=== PATIENT | male | born 1950 | race Caucasian/White ===

== ENCOUNTER 2018-04-25 12:39 | Inpatient (IN) | payer OTHER ==
[2018-04-25] MEDS ORDERED: ONDANSETRON 4 MG/2 ML VIAL ONE (13:25)
[2018-04-25] MEDS ORDERED: PANTOPRAZOLE 40 MG INJ ONE (13:26)
[2018-04-25] MEDS ORDERED: NA CHLORIDE 0.9% 1,000 ML ONE (13:26)
--- NOTE | 2018-04-25 13:35 | EDPHYS ---
Physician Documentation [facility] Name: Jacob Dick Age: 67 yrs Sex: Male : 1950 Arrival Date: 04/25/2018 Time: 12:44 Bed 4 Private MD: ED Physician Darrion Joseph HPI: 04/25 13:22 This 67 yrs old Male presents to ER via Ambulatory with complaints of jenny Nausea/Vomiting. 13:22 The patient presents to the emergency department with nausea, vomiting. Onset: The jenny symptoms/episode began/occurred 3 day(s) ago. Possible causes: unknown. The symptoms are aggravated by nothing. The symptoms are alleviated by nothing. remaining still. Associated signs and symptoms: Pertinent positives: nausea, vomiting. Severity of symptoms: At their worst the symptoms were mild in the emergency department the symptoms have resolved. The patient has not experienced similar symptoms in the past. Historical: - Allergies: 12:48 Codeine; hj 12:48 Hydrocodone-Acetaminophen; hj - Home Meds: 12:48 ibuprofen 100 mg/5 mL Oral susp 20 mL every 4 hours [Active]; furosemide 20 mg Oral tab hj 1 tab 2 times per day [Active]; lisinopril 5 mg Oral tab 1 tab once daily [Active]; citalopram 20 mg tab 1 tab once daily [Active]; metoprolol tartrate 25 mg Oral tab .5 tab 2 times per day [Active]; Cipro 500 mg Oral tab 1 tab every 12 hours [Active]; atorvastatin 80 mg oral tab 1 tab once daily [Active]; allopurinol 300 mg Oral tab 1 tab once daily [Active]; isosorbide mononitrate 60 mg Oral Tb24 1 tab once daily [Active]; Plavix 75 mg Oral tab 1 tab once daily [Active]; - PMHx: 12:48 Hypertension; Hyperlipidemia; Gout; hj - PSHx: 12:48 foot; hj - Immunization history:: Adult Immunizations up to date. - Social history:: Smoking status: Patient/guardian denies using tobacco, Patient/guardian denies using alcohol. - Ebola Screening: : Patient negative for fever greater than or equal to 101.5 degrees Fahrenheit, and additional compatible Ebola Virus Disease symptoms Patient denies exposure to infectious person Patient denies travel to an Ebola-affected area in the 21 days before illness onset. - Family history:: not pertinent. ROS: 13:22 Constitutional: Negative for fever, chills, and weight loss, Eyes: Negative for injury, jenny pain, redness, and discharge, ENT: Negative for injury, pain, and discharge, Neck: Negative for injury, pain, and swelling, Cardiovascular: Negative for chest pain, palpitations, and edema, Back: Negative for injury and pain, : Negative for injury, bleeding, discharge, and swelling, MS/Extremity: Negative for injury and deformity, Skin: Negative for injury, rash, and discoloration, Neuro: Negative for headache, weakness, numbness, tingling, and seizure, Psych: Negative for depression, anxiety, suicide ideation, homicidal ideation, and hallucinations, Allergy/Immunology: Negative for hives, rash, and allergies, Endocrine: Negative for neck swelling, polydipsia, polyuria, polyphagia, and marked weight changes, Hematologic/Lymphatic: Negative for swollen nodes, abnormal bleeding, and unusual bruising. 13:22 Respiratory: Positive for cough. 13:22 Abdomen/GI: Positive for nausea, vomiting. Exam: 13:22 Constitutional: This is a well developed, well nourished patient who is awake, alert, jenny and in no acute distress. Head/Face: Normocephalic, atraumatic. Eyes: Pupils equal round and reactive to light, extra-ocular motions intact. Lids and lashes normal. Conjunctiva and sclera are non-icteric and not injected. Cornea within normal limits. Periorbital areas with no swelling, redness, or edema. ENT: Nares patent. No nasal discharge, no septal abnormalities noted. Tympanic membranes are normal and external auditory canals are clear. Oropharynx with no redness, swelling, or masses, exudates, or evidence of obstruction, uvula midline. Mucous membranes moist. Neck: Trachea midline, no thyromegaly or masses palpated, and no cervical lymphadenopathy. Supple, full range of motion without nuchal rigidity, or vertebral point tenderness. No Meningismus. Chest/axilla: Normal chest wall appearance and motion. Nontender with no deformity. No lesions are appreciated. Cardiovascular: Regular rate and rhythm with a normal S1 and S2. No gallops, murmurs, or rubs. Normal PMI, no JVD. No pulse deficits. Respiratory: Lungs have equal breath sounds bilaterally, clear to auscultation and percussion. No rales, rhonchi or wheezes noted. No increased work of breathing, no retractions or nasal flaring. Back: No spinal tenderness. No costovertebral tenderness. Full range of motion. Male : Normal genitalia with no discharge or lesions. Skin: Warm, dry with normal turgor. Normal color with no rashes, no lesions, and no evidence of cellulitis. MS/ Extremity: Pulses equal, no cyanosis. Neurovascular intact. Full, normal range of motion. Psych: Awake, alert, with orientation to person, place and time. Behavior, mood, and affect are within normal limits. 13:22 Abdomen/GI: Inspection: abdomen appears normal, Bowel sounds: normal, Palpation: nontender, in all quadrants, Liver: no appreciated palpable abnormalities, Hernia: not appreciated. Vital Signs: 12:50 BP 163 / 69; Pulse 71; Resp 18; Temp 98.2(O); Pulse Ox 90% on R/A; Weight 65.77 kg; Height 5 ft. 5 in. (165.10 cm); Pain 0/10; 12:50 Pulse Ox 99% on 2 lpm NC; hj 13:50 BP 158 / 70; Pulse 75; Resp 18; Pulse Ox 100% on 2 lpm NC; hj 14:30 BP 196 / 139; Pulse 71; Resp 16; Pulse Ox 99% ; ag 15:30 BP 162 / 70; Pulse 75; Resp 18; Pulse Ox 99% on 2 lpm NC; hj 12:50 Body Mass Index 24.13 (65.77 kg, 165.10 cm) MDM: 12:44 Patient medically screened. [facility] 13:44 Data reviewed: vital signs, nurses notes, lab test result(s), EKG, radiologic studies. [facility] 04/25 13:22 Order name: Basic Metabolic Panel; Complete Time: 14:30 04/25 13:22 Order name: CBC with Diff 04/25 13:22 Order name: Ckmb; Complete Time: 14:30 04/25 13:22 Order name: CPK; Complete Time: 14:30 04/25 13:22 Order name: LFT's; Complete Time: 14:30 04/25 13:22 Order name: Magnesium; Complete Time: 14:30 04/25 13:22 Order name: PT-INR; Complete Time: 14:31 [facility] 04/25 13:22 Order name: Ptt, Activated; Complete Time: 14:31 [facility] 04/25 13:22 Order name: Troponin (emerg Dept Use Only); Complete Time: 14:30 [facility] 04/25 13:22 Order name: Lipase; Complete Time: 14:30 [facility] 04/25 13:22 Order name: Blood Culture Adult (2) [facility] 04/25 13:22 Order name: Urine Culture [facility] 04/25 14:31 Order name: Phosphorus [facility] 04/25 14:31 Order name: BNP [facility] 04/25 13:22 Order name: XRAY Chest (1 view) [facility] 04/25 13:22 Order name: CT Head Brain wo Cont; Complete Time: 14:30 [facility] 04/25 13:43 Order name: Echo with Doppler [facility] 04/25 14:32 Order name: ABG [facility] 04/25 14:53 Order name: Phosphorus; Complete Time: 15:09 [facility] 04/25 14:53 Order name: NT PRO-BNP; Complete Time: 15:09 [facility] 04/25 14:56 Order name: RAD; Complete Time: 15:09 [facility] 04/25 15:01 Order name: ABG Arterial Blood Gas; Complete Time: 15:09 [facility] 04/25 16:41 Order name: Urine Dipstick--Ancillary (enter results) 04/25 16:43 Order name: Urine Dipstick-Ancillary; Complete Time: 16:47 [facility]SD 04/25 13:22 Order name: EKG; Complete Time: 13:23 [facility] 04/25 13:22 Order name: Cardiac monitoring; Complete Time: 13:22 [facility] 04/25 13:22 Order name: EKG - Nurse/Tech; Complete Time: 14:40 [facility] 04/25 13:22 Order name: IV Saline Lock; Complete Time: 13:22 [facility] 04/25 13:22 Order name: Labs collected and sent; Complete Time: 13:22 [facility] 04/25 13:22 Order name: O2 Per Protocol; Complete Time: 13:22 [facility] 04/25 13:22 Order name: O2 Sat Monitoring; Complete Time: 13:22 [facility] Administered Medications: 13:22 Drug: NS 0.9% 1000 ml Route: IV; Rate: 1 bolus; Site: right wrist; hj 14:39 Follow up: IV Status: Completed infusion hj 13:22 Drug: ProTONIX 40 mg Route: IVP; Site: right wrist; hj 14:40 Follow up: Response: No adverse reaction hj 13:22 Drug: Zofran 4 mg Route: IVP; Site: right wrist; hj 14:39 Follow up: Response: No adverse reaction; Vomiting decreased hj 14:31 Drug: Potassium Chloride 20 mEq Route: IV; Rate: per protocol; Site: left forearm; em 14:59 Follow up: IV Status: Completed infusion em 14:33 Drug: NS 0.9% with KCl 20 mEq/L 1000 ml Route: IV; Rate: 125 ml/hr; Site: left forearm; em 14:58 Follow up: IV Status: Completed infusion em 15:10 Drug: Aspirin Chewable Tablet 162 mg Route: PO; hj 15:37 Follow up: Response: No adverse reaction hj 15:10 Drug: Lovenox 1 mg/kg Route: Sub-Q; Site: abdomen; hj 15:37 Follow up: Response: No adverse reaction hj 15:10 Drug: PlaVIX 75 mg Route: PO; hj 15:36 Follow up: Response: No adverse reaction hj 16:58 Drug: Potassium Effervescent Tablet 25 mEq Route: PO; hj 17:02 Follow up: Response: No adverse reaction hj 17:06 Not Given (pt wheeledto ICU): Potassium Chloride 20 mEq IV at per protocol once; hj administer over 1-2 hours Disposition: 18 13:34 Hospitalization ordered by Edna Rene for Inpatient Admission. Preliminary diagnosis are Vomiting, Syncope and collapse, Hypokalemia, Unspecified kidney failure. - Bed requested for Intensive Care Unit. - Status is Inpatient Admission. hj - Condition is Stable. - Problem is new. - Symptoms have improved. UTI on Admission? No Signatures: Dispatcher [employer] Honey Oro RN RN dw Anderson, Corey, MD MD cha Munoz, Edgar, CARDIOGRAPHER CARDIOGRAPHER Julián Jensen RN RN hj Corrections: (The following items were deleted from the chart) 14:34 13:34 Hospitalization Ordered by Edna Rene MD for Observation. Preliminary jenny diagnosis is Vomiting; Syncope and collapse. Bed requested for Telemetry/MedSurg (observation). Status is Observation. Condition is Stable. Problem is new. Symptoms have improved. UTI on Admission? No. jenny 14:58 14:33 Azar ordered. jenny em 16:16 14:34 04/25/2018 13:34 Hospitalization Ordered by Edna Rene MD for Inpatient dw Admission. Preliminary diagnosis is Vomiting; Syncope and collapse; Hypokalemia; Unspecified kidney failure. Bed requested for Telemetry/MedSurg (Inpatient). Status is Inpatient Admission. Condition is Stable. Problem is new. Symptoms have improved. UTI on Admission? No. jenny 17:26 16:16 04/25/2018 13:34 Hospitalization Ordered by Edna Rene MD for Inpatient hj Admission. Preliminary diagnosis is Vomiting; Syncope and collapse; Hypokalemia; Unspecified kidney failure. Bed requested for Intensive Care Unit. Status is Inpatient Admission. Condition is Stable. Problem is new. Symptoms have improved. UTI on Admission? No. dw
--- NOTE | 2018-04-25 13:35 | ER ---
Nurse's Notes [facility] Name: Jacob Dick Age: 67 yrs Sex: Male : 1950 Arrival Date: 04/25/2018 Time: 12:44 Bed 4 Private MD: Diagnosis: Vomiting;Syncope and collapse;Hypokalemia;Unspecified kidney failure Presentation: 04/25 12:45 Presenting complaint: EMS states: pt was having nausea and vomiting since Thursday, hj denies abd pain or diarrhea; denies fever and chills; been taking antibiotics for and infected foot;. Transition of care: patient was not received from another setting of care. Onset of symptoms was April 25, 2018. Risk Assessment: Do you want to hurt yourself or someone else? Patient reports no desire to harm self or others. Initial Sepsis Screen: Does the patient meet any 2 criteria? No. Patient's initial sepsis screen is negative. Does the patient have a suspected source of infection? No. Patient's initial sepsis screen is negative. Care prior to arrival: None. 12:45 Method Of Arrival: Ambulatory 12:45 Acuity: ERIC 3 12:52 Note 20g R wrist; BGL- 115;. hj Triage Assessment: 12:49 General: Appears in no apparent distress. uncomfortable, Behavior is calm, cooperative, hj appropriate for age. Pain: Complains of pain in right foot. EENT: No signs and/or symptoms were reported regarding the EENT system. Neuro: Level of Consciousness is awake, alert, obeys commands, Oriented to person, place, time, situation, Appropriate for age. Cardiovascular: Capillary refill < 3 seconds Patient's skin is warm and dry. Respiratory: Airway is patent Respiratory effort is even, unlabored, Respiratory pattern is regular, symmetrical. GI: Reports nausea, vomiting. : No signs and/or symptoms were reported regarding the genitourinary system. Derm: No signs and/or symptoms reported regarding the dermatologic system. Musculoskeletal: No signs and/or symptoms reported regarding the musculoskeletal system. Historical: - Allergies: 12:48 Codeine; hj 12:48 Hydrocodone-Acetaminophen; hj - Home Meds: 12:48 ibuprofen 100 mg/5 mL Oral susp 20 mL every 4 hours [Active]; furosemide 20 mg Oral tab hj 1 tab 2 times per day [Active]; lisinopril 5 mg Oral tab 1 tab once daily [Active]; citalopram 20 mg tab 1 tab once daily [Active]; metoprolol tartrate 25 mg Oral tab .5 tab 2 times per day [Active]; Cipro 500 mg Oral tab 1 tab every 12 hours [Active]; atorvastatin 80 mg oral tab 1 tab once daily [Active]; allopurinol 300 mg Oral tab 1 tab once daily [Active]; isosorbide mononitrate 60 mg Oral Tb24 1 tab once daily [Active]; Plavix 75 mg Oral tab 1 tab once daily [Active]; - PMHx: 12:48 Hypertension; Hyperlipidemia; Gout; hj - PSHx: 12:48 foot; hj - Immunization history:: Adult Immunizations up to date. - Social history:: Smoking status: Patient/guardian denies using tobacco, Patient/guardian denies using alcohol. - Ebola Screening: : Patient negative for fever greater than or equal to 101.5 degrees Fahrenheit, and additional compatible Ebola Virus Disease symptoms Patient denies exposure to infectious person Patient denies travel to an Ebola-affected area in the 21 days before illness onset. - Family history:: not pertinent. Screenin:50 Abuse screen: Denies threats or abuse. Denies injuries from another. Nutritional hj screening: No deficits noted. Tuberculosis screening: No symptoms or risk factors identified. Fall Risk None identified. Assessment: 12:53 Reassessment: see triage for assessment;. hj 13:45 Reassessment: Patient and/or family updated on plan of care and expected duration. Pain hj level reassessed. Patient is alert, oriented x 3, equal unlabored respirations, skin warm/dry/pink. Patient states feeling better. 14:45 Reassessment: Patient and/or family updated on plan of care and expected duration. Pain hj level reassessed. Patient is alert, oriented x 3, equal unlabored respirations, skin warm/dry/pink. awaiting results and POC;. 15:35 Reassessment: Patient and/or family updated on plan of care and expected duration. Pain hj level reassessed. Patient is alert, oriented x 3, equal unlabored respirations, skin warm/dry/pink. for admit;. Vital Signs: 12:50 BP 163 / 69; Pulse 71; Resp 18; Temp 98.2(O); Pulse Ox 90% on R/A; Weight 65.77 kg; hj Height 5 ft. 5 in. (165.10 cm); Pain 0/10; 12:50 Pulse Ox 99% on 2 lpm NC; hj 13:50 BP 158 / 70; Pulse 75; Resp 18; Pulse Ox 100% on 2 lpm NC; hj 14:30 BP 196 / 139; Pulse 71; Resp 16; Pulse Ox 99% ; ag 15:30 BP 162 / 70; Pulse 75; Resp 18; Pulse Ox 99% on 2 lpm NC; hj 12:50 Body Mass Index 24.13 (65.77 kg, 165.10 cm) hj ED Course: 12:44 Patient arrived in ED. hj 12:44 Darrion Joseph MD is Attending Physician. jenny 12:46 Triage completed. hj 12:51 Arm band placed on left wrist. hj 12:51 Patient has correct armband on for positive identification. Placed in gown. Bed in low hj position. Side rails up X2. Adult w/ patient. 12:52 Julián Ingram RN is Primary Nurse. hj 12:53 Inserted saline lock: 22 gauge in left forearm, using aseptic technique. Blood hj collected. 12:53 Initial lab(s) drawn, by me, sent to lab. Maintain EMS IV. Dressing intact. Good blood hj return noted. Site clean \T\ dry. Gauge \T\ site: 20g R wrist. 13:[address] via stretcher. kw1 13:32 Edna Rene MD is Hospitalizing Provider. jenny 13:37 CT Head Brain wo Cont In Process Unspecified. EDMS 13:37 CT completed. Patient tolerated procedure well. Patient moved back from CT. bq 14:04 X-ray completed. Portable x-ray completed in exam room. Patient tolerated procedure la2 well. 17:24 No provider procedures requiring assistance completed. Patient admitted, IV remains in hj place. intact. Administered Medications: 13:22 Drug: NS 0.9% 1000 ml Route: IV; Rate: 1 bolus; Site: right wrist; hj 14:39 Follow up: IV Status: Completed infusion hj 13:22 Drug: ProTONIX 40 mg Route: IVP; Site: right wrist; hj 14:40 Follow up: Response: No adverse reaction hj 13:22 Drug: Zofran 4 mg Route: IVP; Site: right wrist; hj 14:39 Follow up: Response: No adverse reaction; Vomiting decreased hj 14:31 Drug: Potassium Chloride 20 mEq Route: IV; Rate: per protocol; Site: left forearm; em 14:59 Follow up: IV Status: Completed infusion em 14:33 Drug: NS 0.9% with KCl 20 mEq/L 1000 ml Route: IV; Rate: 125 ml/hr; Site: left forearm; em 14:58 Follow up: IV Status: Completed infusion em 15:10 Drug: Aspirin Chewable Tablet 162 mg Route: PO; hj 15:37 Follow up: Response: No adverse reaction hj 15:10 Drug: Lovenox 1 mg/kg Route: Sub-Q; Site: abdomen; hj 15:37 Follow up: Response: No adverse reaction hj 15:10 Drug: PlaVIX 75 mg Route: PO; hj 15:36 Follow up: Response: No adverse reaction hj 16:58 Drug: Potassium Effervescent Tablet 25 mEq Route: PO; hj 17:02 Follow up: Response: No adverse reaction hj 17:06 Not Given (pt wheeledto ICU): Potassium Chloride 20 mEq IV at per protocol once; hj administer over 1-2 hours Outcome: 13:34 Decision to Hospitalize by Provider. jenny 17:25 Admitted to ICU accompanied by nurse, via wheelchair, room 2, with oxygen, with chart, Report called to GIAN Werner 17:25 Condition: stable 17:25 Instructed on the need for admit, Demonstrated understanding of instructions. 17:26 Patient left the ED. Signatures: Dispatcher [employer] Darrion Yanez MD MD cha Quilty, Betty bq Munoz, Edgar, WORD PROCESSOR TECHNICIAN WORD PROCESSOR TECHNICIAN Janine Ceja Henry RN RN Jennifer Miller Kimberly kw1
[2018-04-25 13:49] LABS: Absolute Lymphocytes (CBC) 0.9 K/uL (0.7-4.9); Absolute Monocytes 0.5 K/uL (0.1-1.3); Absolute Neutrophil 9.9 K/uL (1.8-8.0); Basophils % 0.6 % (0-1.3); Eosinophils % 0.9 % (0-4.4); Hematocrit 31.5 % (39.6-49.0); Lymphocytes % 7.6 % (15.3-44.8); MCH 26.2 pg (27.0-35.0); MCV 79.7 fL (80-100); MPV 8.4 fL (7.6-11.3); Monocytes % 4.5 % (3.3-12.3); RBC Red Blood Cell Count 3.96 M/uL (4.33-5.43)
--- NOTE | 2018-04-25 13:52 | RAD REPORT ---
EXAM DESCRIPTION: CT - Head Brain Wo Cont - 04/25/2018 1:37 pm CLINICAL HISTORY: Dizziness, nausea, vomiting, syncope COMPARISON: None. TECHNIQUE: Axial 5 mm thick images of the head were obtained without IV contrast. All CT scans are performed using dose optimization technique as appropriate and may include automated exposure control or mA/KV adjustment according to patient size. FINDINGS: No intracranial hemorrhage, mass, edema or shift of mid-line structures. No acute cortical based infarction identified. No cortical edema or sulcal effacement. Mild atrophy and chronic ischem ic changes are present. Arterial and physiologic calcifications are present. No abnormal extra-axial fluid collections. Ventricles are normal for the amount of volume loss. Mastoid air cells and visualized portions of the paranasal sinuses are clear. No acute bony findings. IMPRESSION: Negative non-contrast CT head examination for acute finding. Mild atrophy and chronic ischemic change.
[2018-04-25 13:53] LABS: Protime INR 1.05
[2018-04-25 14:13] LABS: ALT/SGPT 27 U/L (12-78); AST/SGOT 45 U/L (15-37); Albumin 1.8 g/dL (3.4-5.0); Alkaline Phosphatase 71 U/L (45-117); BUN Blood Urea Nitrogen 20 mg/dL (7-18); Bilirubin Direct < 0.1 mg/dL (0-0.2); Bilirubin Total 0.5 mg/dL (0.2-1.0); CKMB Creatine Kinase MB 3.6 ng/mL (0.3-3.6); Creatine Phosphokinase 288 U/L (39-308); Glucose Level 99 mg/dL (74-106); Lipase 58 U/L (73-393); Magnesium 1.8 mg/dL (1.8-2.4); Protein, Total 5.7 g/dL (6.4-8.2); Sodium Level 136 mmol/L (136-145)
[2018-04-25 14:20] LABS: Bicarbonate 42 mmol/L (21-32); Potassium 1.6 mmol/L (3.5-5.1)
[2018-04-25] MEDS ORDERED: NS KCL 20MEQ 1,000 ML IV ONE (14:47)
[2018-04-25] MEDS ORDERED: KCL 20 MEQ/100 mL IVPB 20 MEQ/100 ML BAG IV ONE (14:48)
[2018-04-25 14:49] LABS: Arterial Blood Carboxyhemoglob 2.2 % (0-1.5); Blood Gas Oxyhemoglobin 94.9 % (94-97)
[2018-04-25 14:53] LABS: Phosphorus 3.5 mg/dL (2.5-4.9)
--- NOTE | 2018-04-25 14:56 | RAD REPORT ---
EXAM DESCRIPTION: RAD - Chest Single View - 04/25/2018 2:06 pm CLINICAL HISTORY: Cough COMPARISON: August 2011 TECHNIQUE: AP portable chest image was obtained 1402 hours . FINDINGS: Scattered fibrotic changes are present with no acute infiltrate, failure or mass. Scarring changes are minimally progressive from the 2010 comparison. Heart and vasculature are normal. No ignacio surable pleural effusion and no pneumothorax. No gross bony abnormality seen. No acute aortic finding s suspected. IMPRESSION: No acute cardiopulmonary process. Scattered fibrotic changes are minimally progressive from comparison.
[2018-04-25] MEDS ORDERED: ASPIRIN 81 MG CHEWABLE TABLET ONE (15:19)
[2018-04-25] MEDS ORDERED: CLOPIDOGREL 75 MG TABLET ONE (15:19)
[2018-04-25] MEDS ORDERED: ENOXAPARIN 80 MG/0.8 ML SQ ONE (15:19)
[2018-04-25 16:43] LABS: Urine Blood 3+ (NEG); Urine Glucose NEGATIVE (NEG); Urine Protein 3+ (NEG); Urine pH 6.5 (5.0-7.0)
[2018-04-25] MEDS ORDERED: FUROSEMIDE 20 MG TABLET PO SCH (17:00)
[2018-04-25] MEDS ORDERED: POTASSIUM 25 MEQ EFFERV TAB ONE (17:02)
[2018-04-25] MEDS: METRONIDAZOLE 500mg IVPB 500 MG/100 ML BAG IV SCH (17:40)
--- NOTE | 2018-04-25 18:14 | P.HP ---
Certification for Inpatient Patient admitted to: Inpatient With expected LOS: >2 Midnights Patient will require the following post-hospital care: None Practitioner: I am a practitioner with admitting privileges, knowledge of patient current condition, hospital course, and medical plan of care. Services: Services provided to patient in accordance with Admission requirements found in Title 42 Section 412.3 of the Code of Federal Regulations Patient History Date of Service: 04/25/18 Primary Care Provider: Dr Celestin Reason for admission: Syncopal Episode History of Present Illness: 67 y/o M with significant pmhx of CHF diastolic, COPD, CAD with 6 stent placement, Diabetes and HTN who presented to the ED with Complains of Having N/ V and Diarrhea for 1 to 2 weeks. Pt states he has been not feeling well for quite some time now but got progressively worse since thursday night. Pt states he has been having fever, Chills as well as chest discomfort. Pt also had an episode of syncope and collapse last night and thus he decided to come to the ER. Pt was recently admitted to the [facility] in [place] for similar Symptoms and was found to have NSTEMI. Cardiology was consulted and Dr Pickering recc CABG. However pt opted to leave the hospital to care for his sick . I contacted [facility] and spoke the supervisor burling and joining regarding results. His Last ECHO and TTE was consistent with EF of 50-55% and Diastolic Dysfunction. Cath was done in October of 2017 with 3 vessel disease and Restenosis of some stents. I also spoke to Pt PCP who stated pt has been neglecting his health to care for his sick and has been asked to F.u with cardiology since last year. Allergies codeine Allergy (Verified 04/25/18 15:25) Hives Hydrocodone-Acetaminophe Allergy (Uncoded 04/25/18 17:30) Unknown Home Medications: Acetaminophen [Acetaminophen Extra Strength] 500 mg PO Q6HR PRN 04/25/18 Allopurinol [Zyloprim] 300 mg PO DAILY 04/25/18 Atorvastatin Calcium [Lipitor] 80 mg PO BEDTIME 04/25/18 Ciprofloxacin HCl [Cipro 500 MG Tablet] 500 mg PO BID 04/25/18 Clopidogrel Bisulfate [Plavix*] 75 mg PO DAILY 04/25/18 Furosemide [Lasix] 20 mg PO BIDL 04/25/18 Isosorbide Mononitrate [Isosorbide Mononitrate ER] 60 mg PO DAILY 04/25/18 Lisinopril [Prinivil] 5 mg PO DAILY 04/25/18 Metoprolol Tartrate [Lopressor] 12.5 mg PO BID 04/25/18 Nitroglycerin 1 tab SL PRN PRN 04/25/18 Omeprazole Magnesium [Prilosec Otc] 20 mg PO DAILY 04/25/18 - Past Medical/Surgical History Has patient received pneumonia vaccine in the past: No Diabetic: Yes -: CHF -: HTN -: HLP -: Diabetes -: CAD -: Angioplasty with 6 stents placement - Family History Family History: Reviewed- Non-Contributory - Family History Mother -: Heart disease, Cancer Brother -: Heart disease, Cancer Review of Systems General: As per HPI Physical Examination - Vital Signs Temperature: 98.2 F Blood Pressure: 181/77 Pulse: 78 Respirations: 18 - Physical Exam General: Alert, Oriented x3, Mild distress HEENT: Atraumatic, Other (Pale) Neck: Supple, JVD not distended Respiratory: Clear to auscultation bilaterally, Normal air movement Cardiovascular: Regular rate/rhythm, Normal S1 S2, Abnormal pulses Gastrointestinal: Normal bowel sounds, Soft and benign, Non-distended, No tenderness Musculoskeletal: Erythema, Tenderness, Warmth Integumentary: No rashes Neurological: Normal speech, Normal tone, Abnormal strength Lymphatics: No axilla or inguinal lymphadenopathy - Studies Laboratory Data (last 24 hrs) 04/25/18 13:30: Phosphorus 3.5 04/25/18 13:30: PT 12.4, INR 1.05, APTT 25.7 04/25/18 13:30: WBC 11.5 H, Hgb 10.4 L, Hct 31.5 L, Plt Count 220 04/25/18 13:30: Sodium 136, Potassium 1.6 L*, BUN 20 H, Creatinine 1.80 H, Glucose 99, Magnesium 1.8, Total Bilirubin 0.5, AST 45 H, ALT 27, Alkaline Phosphatase 71, Lipase 58 L Assessment and Plan - Problems (Diagnosis) (1) NSTEMI (non-ST elevated myocardial infarction) Current Visit: Yes Status: Acute Plan: Chest Discomfort with Elevated Troponin and EKG with possible Block. H/o of angioplasty with 6 stent placement -Pt was seen at [facility] for syncope in January of 2018. Was evaluated by musical engineer Dr Pickering and reccomended to have CABG due to stenosis and re stenosis of his artery and stent. TTE and ECHO were done at that time with EF of 50-55% and LVH was noted. Pt however at that time left hospital as he had his sick to take care of. Pt's PCP Dr Lancaster was contacted by me in the ER. Reccs pt to be seen by local musical engineer however pt has not been following advise as he is caught up taking care of his . -Pt scheduled for Heart Cath lee with Dr Rodriguez -ASA and plavix given in the ER -Continue with BB, Lasix and ASA. -Cardiology consulted. Reccs Appreciated. (2) Syncope and collapse Current Visit: Yes Status: Acute Plan: Syncopal Episode x 2 at home with collapse last night -PT consulted -Fall precaution -Carotid Doppler Pending -Echo Pending -Head CT negative for acute abnormality (3) Nausea & vomiting Current Visit: Yes Status: Acute Plan: Nausea and vomiting with Chest Discomfort. Most likely due to Atypical CAD presentation. -IV fluids and Zofran PRN Qualifiers: Vomiting type: unspecified Vomiting Intractability: non-intractable Qualified Code(s): R11.2 - Nausea with vomiting, unspecified (4) Generalized weakness Current Visit: Yes Status: Acute Plan: PT consulted. (5) CAD (coronary artery disease) Current Visit: Yes Status: Chronic Plan: H/O Angioplasty with 6 stents placement -Heart Cath in October of 2017 with reccs for CABG due to Stenosis of LCA and RCA. -ECHO with 50-55% EF and Diastolic dysfunction Qualifiers: Coronary Disease-Associated Artery/Lesion type: circle artery [place] vs. transplanted heart: circle heart Associated angina: without angina Qualified Code(s): I25.10 - Atherosclerotic heart disease of circle coronary artery without angina pectoris (6) CHF (congestive heart failure) Current Visit: Yes Status: Acute Plan: ProBNP elevated. Xray with no congestion however. -Might be elevated due to Enlarged Heart. -Fluids with Caution -Restart Lasix for now Qualifiers: Heart failure type: diastolic Heart failure chronicity: acute on chronic Qualified Code(s): I50.33 - Acute on chronic diastolic (congestive) heart failure (7) Diabetes Current Visit: Yes Status: Chronic Qualifiers: Diabetes mellitus type: type 2 Diabetes mellitus [facility] insulin use: without technician assistant use Diabetes mellitus complication status: without complication Qualified Code(s): E11.9 - Type 2 diabetes mellitus without complications Discharge Plan: Home Plan to discharge in: 48 Hours - Advance Directives Does patient have a Living Will: No Does patient have a Durable POA for Healthcare: No - Code Status/Comfort Care Code Status Assessed: Yes Critical Care: Yes
[2018-04-25] MEDS ORDERED: NITROGLYCERIN 0.4 MG/TAB SL PRN (18:22)
[2018-04-25 18:25] LABS: Protime INR 1.1
[2018-04-25 18:33] LABS: Blood Morphology Comment NOT SEEN (NOT SEEN); Platelet Estimate ADEQ; Urine White Blood Cell Casts OK
[2018-04-25 18:39] LABS: CKMB Creatine Kinase MB 3.3 ng/mL (0.3-3.6); Thyroid Stimulating Hormone 0.44 uIU/mL (0.36-3.74)
[2018-04-25] MEDS ORDERED: PNEUMOCOCCAL VACCINE 0.5 ML IMVAC ONE (19:00)
[2018-04-25 19:33] LABS: ALT/SGPT 24 U/L (12-78); AST/SGOT 42 U/L (15-37); Albumin 1.8 g/dL (3.4-5.0); Alkaline Phosphatase 67 U/L (45-117); BUN Blood Urea Nitrogen 19 mg/dL (7-18); Bilirubin Total 0.3 mg/dL (0.2-1.0); Glucose Level 81 mg/dL (74-106); Protein, Total 5.5 g/dL (6.4-8.2); Sodium Level 135 mmol/L (136-145)
--- NOTE | 2018-04-25 19:33 | RAD REPORT ---
EXAM DESCRIPTION: HOMERO - CP - 04/25/2018 7:08 pm CLINICAL HISTORY: Syncope COMPARISON: None. TECHNIQUE: Real-time sonographic evaluation of both carotid systems was performed. Doppler interroga tion was performed with waveform tracing bilaterally. FINDINGS: Normal high resistance waveforms are noted in both external carotid arteries. The common c arotid arteries and internal carotid arteries show normal low resistance waveforms. Mild to moderate plaquing changes are present in the right carotid bulb and proximal ICA. Mild plaqui ng changes are present in the left carotid bulb. On grayscale evaluation no significant luminal narro wing or significant flow restricting lesion identifiable. There are no dissection changes. Right-side d common carotid and internal carotid artery velocity values range from 46 cm/second- 59 cm/second. A 1.1 ICA/ CCA ratio noted on the right. Left-sided CCA and ICA velocities range from 67 cm/second- 86 cm/second. A 1.3 ICA/ CCA ratio noted on the left. Antegrade flow seen in both vertebral arteries. Velocity values and ratios were recorded and are retained in the patient's imaging records. IMPRESSION: Calcified and noncalcified plaquing changes are present. No evidence of a hemodynamically significant stenosis.
[2018-04-25 19:34] LABS: Bicarbonate 41 mmol/L (21-32); Potassium 2.1 mmol/L (3.5-5.1)
[2018-04-25] MEDS ORDERED: ATORVASTATIN 80 MG TAB ONE (20:13)
[2018-04-25] MEDS: KCL 20 MEQ/100 mL IVPB 20 MEQ/100 ML BAG IV SCH ×2 (20:28→22:12)
[2018-04-25] MEDS: ATORVASTATIN 80 MG TAB PO SCH (20:28)
[2018-04-25] MEDS: METOPROLOL TAR 25 MG TAB PO SCH (20:28)
[2018-04-25] MEDS: ACETAMINOPHEN 325 MG TABLET PO PRN (20:29)
[2018-04-26] MEDS: METRONIDAZOLE 500mg IVPB 500 MG/100 ML BAG IV SCH ×3 (00:06→16:22)
[2018-04-26] MEDS: KCL 20 MEQ/100 mL IVPB 20 MEQ/100 ML BAG IV SCH ×5 (00:07→22:06)
[2018-04-26] MEDS: NS KCL 20MEQ 20 MEQ/1,000 ML BAG IV SCH ×2 (00:17→17:23)
[2018-04-26] MEDS: ACETAMINOPHEN 325 MG TABLET PO PRN ×3 (03:20→19:32)
[2018-04-26 05:12] LABS: Absolute Lymphocytes (CBC) 1.7 K/uL (0.7-4.9); Absolute Monocytes 0.7 K/uL (0.1-1.3); Absolute Neutrophil 9.3 K/uL (1.8-8.0); Hematocrit 27.3 % (39.6-49.0); Lymphocytes % 14.3 % (15.3-44.8); MCH 26.4 pg (27.0-35.0); MCV 79.4 fL (80-100); MPV 8.2 fL (7.6-11.3); Monocytes % 5.5 % (3.3-12.3); RBC Red Blood Cell Count 3.44 M/uL (4.33-5.43)
[2018-04-26 05:37] LABS: Albumin 1.7 g/dL (3.4-5.0); Bilirubin Total 0.4 mg/dL (0.2-1.0); Magnesium 1.5 mg/dL (1.8-2.4); Phosphorus 3.8 mg/dL (2.5-4.9)
[2018-04-26] MEDS ORDERED: Magnesium Sulfate 2gm IVPB 2 G/50 ML BAG IV ONE (05:49)
[2018-04-26] MEDS ORDERED: ISOSORBIDE MONO SR 60 MG TAB PO ONE (05:58)
[2018-04-26] MEDS: ASPIRIN EC 81 MG TAB PO SCH (06:05)
[2018-04-26] MEDS: METOPROLOL TAR 25 MG TAB PO SCH ×2 (06:05→21:11)
[2018-04-26] MEDS: ISOSORBIDE MONO SR 60 MG TAB PO SCH (06:05)
[2018-04-26] MEDS: PANTOPRAZOLE 40MG TABLET PO SCH (06:26)
[2018-04-26] MEDS: CITALOPRAM 10 MG TABLET PO SCH (08:11)
[2018-04-26] MEDS ORDERED: HOME MED 1 EA UNK (Omeprazole Magnesium [Prilosec Otc] 20 MG) PO SCH (09:00)
[2018-04-26] MEDS ORDERED: CLOPIDOGREL 75 MG TABLET PO SCH (09:00)
--- NOTE | 2018-04-26 09:33 | EKG ---
Test Date: 2018-04-25 Test Time: 13:44:36 Cattle Manager: JOHANA MEASUREMENT RESULTS: Intervals: Rate: 64 WV: 184 QRSD: 114 QT: 446 QTc: 460 [place]: P: 61 WV: 184 QRS: 42 T: 64 INTERPRETIVE STATEMENTS: Sinus rhythm with premature atrial complexes with aberrant conduction Left ventricular hypertrophy with repolarization abnormality Abnormal ECG Compared to ECG 08/14/2011 16:49:55 Atrial premature complex(es) now present Aberrant conduction of supraventricular beat(s) now present Left ventricular hypertrophy now present Early repolarization now present Sinus tachycardia no longer present Ventricular premature complex(es) no longer present Electronically Signed On 04-26-18 09:33:23 CDT by Kevin Sosa
--- NOTE | 2018-04-26 11:40 | CON ---
Identification: A 67-year-old man. History Of Present Illness: Mr. Dick came to the hospital because of nausea, diarrhea, vomiting, and a syncopal episode, was found to have a lot of electrolyte abnormalities, metabolic alkalosis. The troponin was abnormal, that is why I am asked to see him. The patient has known CAD. Over the p ast 5 years, he has had at least 5 intracoronary stents placed. His last cardiac cath was October 03. It was done at [facility] and at that point, it was recommended that he have bypass surgery. He was allowed to go home. He has chest pain about twice a month. It is always relieved with nitroglycerin . Has not had any chest pain now and his next appointment is with a heart surgeon at [facility] and they w ill most likely admit him and do coronary bypass surgery. The patient has several amputations of toe s on the right foot from a lawnmower accident. He does not have diabetes. He has underlying coronar y heart disease, dyslipidemia, not a cigarette smoker currently. He has been getting Cipro as an out patient and as soon as he took that, he started getting the diarrhea. Outpatient Medications: Allopurinol, isosorbide, clopidogrel, metoprolol atorvastatin, lisinopril fu rosemide, omeprazole, nitroglycerin, and Cipro. Allergies: HE IS ALLERGIC TO CODEINE. Physical Examination: Vital signs: He is 5 feet 5 inches, 148 pounds. General: Alert, oriented, pleasant. Lungs: Clear. Heart: Within normal limits. Abdomen: Soft. Extremities: reveal amputation of toes 2 through 5 on the right. There is a small wound on his righ t foot. It does not appear ulcerated or actively infected. It is just in the discolored area. The left foot is normal. Distal pulses are normal. He has had a carotid artery ultrasound, which reveals no significant stenosis, no reversal of flow in the vertebral arteries. There is no EKG in his chart. A chest x-ray shows no acute abnormality. Laboratory Data: His hemoglobin is 9.1. Creatinine is 1.8. There is a troponin of 0.18. Impression: My impression is, the patient has not had an acute coronary syndrome. We need to get an EKG done and have it in the chart, but overall Mr. Dick's cardiac situation, although he has sev ere coronary artery disease CAD with the bypass is stable at this point. SHAWN/JAZMYN Voice ID: [id number] Report ID: [id number]
--- NOTE | 2018-04-26 12:08 | ECHO ---
HEIGHT: 5 ft 5 in WEIGHT: 148 lb 4.8 oz DATE OF STUDY: 04/26/[address]: Darrion Joseph MD 2-DIMENSIONAL: YES M.MODE: YES DOPPLER: YES COLOR FLOW: YES TDS: PORTABLE: YES DEFINITY: BUBBLE STUDY: DIAGNOSIS: SYNCOPE CARDIAC HISTORY: CATHERIZATION: NO SURGERY: NO PROSTHETIC VALVE: NO PACEMAKER: NO MEASUREMENTS (cm) DIASTOLIC (NORMALS) SYSTOLIC (NORMALS) IVSd 1.3 (0.6-1.2) LA Diam 4.0 (1.9-4.0) LVEF 50-55% LVIDd 5.5 (3.5-5.7) LVIDs 3.8 (2.0-3.5) %FS 31% LVPWd 1.2 (0.6-1.2) Ao Diam 3.0 (2.0-3.7) 2 DIMENSIONAL ASSESSMENT: RIGHT ATRIUM: DILATED LEFT ATRIUM: DILATED RIGHT VENTRICLE: NORMAL LEFT VENTRICLE: LEFT VENTRICULAR HYPERTROPHY TRICUSPID VALVE: NORMAL MITRAL VALVE: NORMAL PULMONIC VALVE: NORMAL AORTIC VALVE: NORMAL PERICARDIAL EFFUSION: NONE AORTIC ROOT: NORMAL LEFT VENTRICULAR WALL MOTION: INFERIOR, POSTERIOR AKINESIS DOPPLER/COLOR FLOW: MILD TRICUSPID REGURGITATION. MODERATE MITRAL REGURGITATION. COMMENTS: NORMAL LEFT VENTRICULAR EJECTION FRACTION WITH WALL MOTION ABNORMALITY. DILATED LEFT AND RIGHT ATRIUM. LEFT VENTRICULAR HYPERTROPHY. MILD TRICUSPID REGURGITATION. MODERATE MITRAL REGURGITATION. TECHNOLOGIST: ANITHA LOVELACE
--- NOTE | 2018-04-26 12:10 | CON ---
Date of Consultation: 04/25/2018 Reason For Consultation: Elevated troponin and history of severe coronary artery disease. History Of Present Illness: The patient is a 67 years old. Apparently in October of 2017, he went to [facility] for chest pain, underwent a heart catheterization revealing severe coronary artery disease. He was supposed to be admitted for bypass surgery, but there were some other issues going on socially and this did not happen. He came in with atypical chest pain, nausea and vomiting for 2-3 days, has an infected foot. Denied any PND, orthopnea, or pedal edema, but did have an episode of syncope. N o palpitations. Past Medical History: He has a past medical history of hypertension, renal insufficiency, gout, dysl ipidemia, coronary artery disease, status post multiple stents. Allergies: HE IS ALLERGIC TO CODEINE. Review of Systems: Negative. Social History: Negative. Family History: Noncontributory. Medications: Include Lasix, lisinopril, metoprolol, Lipitor 80 mg daily, Imdur, Plavix 75 mg daily. Physical Examination: Vital Signs: His blood pressure is 160/24. He was in sinus rhythm, afebrile. HEENT: Negative. Neck: Supple, with no bruit. Chest: Clear to auscultation and percussion. Cardiac: Exam revealed a regular rhythm and rate without any murmurs, gallops, or rubs. Abdomen: Benign. Extremities: Revealed no clubbing, cyanosis, or edema. Laboratory Data: His creatinine was 1.8, PO2 was 108 with a pCO2 of 54. He had a white count of 11, 000. His potassium was 2. Troponin was 0.18 and 0.14, with a BNP of 16,911. Impression And Plan: History of severe coronary artery disease, now with elevated troponin, elevated BNP with chest pain, syncope, nausea and vomiting. I am very concerned about his severe hypokalemia and renal insufficiency. I think, he may need to be hydrated. See what his creatinine does. Corre ct his potassium. See if we can get some old labs to see what his creatinine used to be in the past. He does need a heart catheterization, though we may have to wait for about 48 hours prior to doing this. His history of coronary artery disease is such as he has had multiple stents in the past, and in October of 2017, a catheterization at [facility] showed severe coronary artery disease in the left ante rior descending, right coronary artery and circumflex. Bypass surgery was recommended, but this was not done yet. His blood pressure is borderline controlled, and his dyslipidemia is well controlled. I will discuss the case further with admitting physician. I would like to get an echocardiogram toandrea ESPINOSA/JAZMYN Voice ID: [id number] Report ID: [id number]
--- NOTE | 2018-04-26 13:55 | PN ---
Date of Progress Note: 04/26/2018 Subjective: The patient seen and examined, chart reviewed, and case discussed with RN. The patient states, he is feeling better. Does not have any chest pain but having some nausea. Appetite is very poor. His cath has been canceled. Recommended follow up with CT Surgery for an outpatient cardiolo gy for CABG as scheduled at [facility]. Review of Systems: Negative except as above. Medications: Reviewed. Objective: Vital Signs: Temperature 97, heart rate 69, blood pressure 142/57, respirations 15, and O2 98% on 2 L via nasal cannula. General: Awake, alert, oriented x3. Some mild distress, appears older than stated age. Ill-appeari ng male. CV: S1, S2. No murmurs. Regular rate and rhythm. Peripheral pulses present. Respiratory: Clear to auscultation bilaterally. No wheezing. No stridor. Gastrointestinal: Abdomen is soft, nontender, nondistended. Positive bowel sounds. No guarding or rigidity. Extremities: No clubbing, cyanosis, or edema. Neuro: Nonfocal. Laboratory Data: Sodium 140, potassium 2, chloride 94, CO2 41, BUN 17, creatinine 1.8, glucose 80, c alcium 7.2, phosphorus 3.8, and magnesium 1.5. Troponin 0.18, 0.15. Albumin 1.7, triglycerides 117, cholesterol 125, LDL 78, and HDL 24. WBC 12, H and H 9.1, 27.3, platelets 195, and neutrophils 77%. Blood culture is pending. Urine culture, no growth. Assessment: A 67-year-old male with; 1.Spd-TM-wcvkenwke myocardial infarction. The patient has history of previous stent placement, rece ntly seen at [facility] in a January 2018 and recommended to have CABG to the stenosis and re-steno sis of some stent. The patient however has been noncompliant in taking care of his sick . Has h ad echocardiogram done recently. Had ejection fraction of 50-55% and left ventricular hypertrophy. Currently on chest pain guideline, aspirin, Plavix, and beta seamus. Cardiology on board. No heart cath. The patient to follow up with tutoring assistant and CT surgeon at [facility] for CABG. 2.Hypertensive heart disease. 3.Hypokalemia. We will replace and monitor. 4.Hypomagnesemia, replace and Monitor. 5.Syncope and collapse, improved. Continue with physical therapy. Carotid ultrasound shows calcifi ed and non-calcified plaquing changes. No evidence of hemodynamically significant stenosis. Head CT does not show any intracranial bleed. Does show some mild atrophic and chronic ischemic changes. 6.Intractable nausea and vomiting, improving. Continue with IV antiemetics. 7.Generalized weakness. 8.Coronary artery disease, [place] artery and [place] heart without angina. The patient needs CABG, s tatus post stent. 9.congestive heart failure. BNP elevated, however, no congestion on chest x-ray. Lasix has been he ld due to hypokalemia. 10.Diabetes mellitus type 2 without long-term use of insulin without any complications. 11.dyslipidemia. Continue statin. Plan: We will continue to monitor electrolytes. Keep in the ICU for close monitoring, likely step-d own later today or a.m. once condition improves. /DANITZAL Voice ID: [id number] Report ID: [id number]
[2018-04-26] MEDS: ONDANSETRON 4 MG/2 ML VIAL IV PRN ×2 (15:13→20:13)
[2018-04-26] MEDS ORDERED: POTASSIUM 25 MEQ EFFERV TAB PO ONE (18:00)
[2018-04-26] MEDS ORDERED: KCL 20 MEQ/100 mL IVPB 20 MEQ/100 ML BAG IV SCH (18:00)
[2018-04-26] MEDS ORDERED: PROMETHAZINE 25 MG/ML VIAL IV PRN (20:17)
[2018-04-26] MEDS: ATORVASTATIN 80 MG TAB PO SCH (21:12)
[2018-04-26] MEDS: JUVEN PACKET PO SCH (21:12)
[2018-04-26] MEDS ORDERED: KCL 20 MEQ/100 mL IVPB 20 MEQ/100 ML BAG IV ONE (22:07)
[2018-04-27] MEDS: METRONIDAZOLE 500mg IVPB 500 MG/100 ML BAG IV SCH ×3 (00:09→17:36)
[2018-04-27] MEDS: KCL 20 MEQ/100 mL IVPB 20 MEQ/100 ML BAG IV SCH ×7 (00:09→22:42)
[2018-04-27] MEDS ORDERED: ALBUTEROL 2.5 MG/3 ML NEB SOL NEB SCH (01:46)
[2018-04-27] MEDS ORDERED: ALBUTEROL 2.5 MG/3 ML NEB SOL NEB PRN (01:51)
[2018-04-27] MEDS: IPRATROPIUM BROM 0.5MG/2.5ML NEB PRN ×2 (01:58→06:29)
[2018-04-27 05:52] LABS: Absolute Lymphocytes (CBC) 1.6 K/uL (0.7-4.9); Absolute Monocytes 0.7 K/uL (0.1-1.3); Absolute Neutrophil 13.9 K/uL (1.8-8.0); Basophils % 0.5 % (0-1.3); Eosinophils % 0.7 % (0-4.4); Lymphocytes % 9.7 % (15.3-44.8); MCH 26.9 pg (27.0-35.0); MCV 79.5 fL (80-100); MPV 8.1 fL (7.6-11.3); Monocytes % 4.3 % (3.3-12.3); RBC Red Blood Cell Count 3.53 M/uL (4.33-5.43)
[2018-04-27 06:06] LABS: Albumin 1.8 g/dL (3.4-5.0); Bilirubin Total 0.4 mg/dL (0.2-1.0); Phosphorus 2.6 mg/dL (2.5-4.9); Potassium 2.6 mmol/L (3.5-5.1); Protein, Total 5.5 g/dL (6.4-8.2)
[2018-04-27] MEDS: ONDANSETRON 4 MG/2 ML VIAL IV PRN (06:15)
[2018-04-27] MEDS: PANTOPRAZOLE 40MG TABLET PO SCH (06:30)
[2018-04-27] MEDS: LEVALBUTEROL 1.25 MG/3 ML NEB NEB SCH ×6 (06:48→23:30)
[2018-04-27] MEDS ORDERED: LEVALBUTEROL 1.25 MG/3 ML NEB ONE (06:50)
[2018-04-27 07:22] LABS: Blood O2 Saturation 86.5 % (92-98.5)
[2018-04-27 07:23] LABS: Arterial Blood Carboxyhemoglob 1.5 % (0-1.5); Blood Gas Oxyhemoglobin 84.9 % (94-97)
[2018-04-27] MEDS: SODIUM CHLORIDE 0.9% 10ML INJ IV PRN (07:24)
[2018-04-27] MEDS: PANTOPRAZOLE 40 MG INJ IVP SCH (07:24)
[2018-04-27] MEDS: IPRATROPIUM BROM 0.5MG/2.5ML NEB SCH ×5 (08:00→23:30)
--- NOTE | 2018-04-27 08:19 | RAD REPORT ---
EXAM DESCRIPTION: RAD - Chest Single View - 04/27/2018 7:48 am CLINICAL HISTORY: SOB Chest pain. COMPARISON: Chest Single View dated 04/25/2018; ABDOMEN ACUTE SERIES dated 08/14/2011 FINDINGS: Portable technique limits examination quality. Ill-defined opacity is present in the right lower lobe suspicious for aspiration/ developing pneumoni a. Mild bilateral interstitial prominence is also seen. The heart is upper limit normal in size. IMPRESSION: Opacity in the right lung base medially is suspicious for an area of aspiration/developi ng pneumonia.
[2018-04-27] MEDS ORDERED: Levofloxacin500mg IV 500 MG/100 ML BAG IV SCH (09:00)
[2018-04-27] MEDS: JUVEN PACKET PO SCH ×2 (09:00→20:18)
[2018-04-27] MEDS: ENOXAPARIN 30 MG/0.3 ML SQ SCH (09:22)
[2018-04-27] MEDS: METOPROLOL TAR 25 MG TAB PO SCH ×2 (10:34→20:18)
[2018-04-27] MEDS: ASPIRIN EC 81 MG TAB PO SCH (10:34)
[2018-04-27] MEDS: CITALOPRAM 10 MG TABLET PO SCH (10:34)
[2018-04-27] MEDS: ISOSORBIDE MONO SR 60 MG TAB PO SCH (10:35)
[2018-04-27] MEDS: NS KCL 20MEQ 20 MEQ/1,000 ML BAG IV SCH (11:00)
--- NOTE | 2018-04-27 11:09 | PN ---
Date of Progress Note: 04/26/2018 Mr. Dick was admitted to Dr. Rene on 04/25/2018. Has been seen by Dr. Sosa and myself on 04/03 for history of coronary artery disease. He is not having an acute coronary syndrome. He has developed some diarrhea and intractable nausea and vomiting for about 4 days. GI consultation was do ne and he is on p.o. Protonix. He still has nausea and vomiting. I have switched him to IV Protonix . He remains dehydrated, hypokalemic, and may need more hydration. Another heart catheterization ma y be indicated if he does not want to have coronary artery bypass surgery that has been recommended i october, but he is hemodynamically stable from a cardiovascular standpoint without any chest pain, and we will certainly have to wait the catheterization until he feels better from a GI standpoint. We will continue his present regimen for now. FRANCISCA/JAZMYN Voice ID: [id number] Report ID: [id number]
--- NOTE | 2018-04-27 17:15 | PN ---
Date of Progress Note: 04/27/2018 Subjective: The patient seen and examined, chart reviewed, and case discussed with RN. The patient had some respiratory distress last night. Having some sputum production and cough. Otherwise, no fu rther nausea or vomiting. Review of Systems: Negative except as above. Medications: Reviewed. Objective: Vital signs: Temperature 98.1, heart rate 105, blood pressure 158/80, respirations 23, a nd O2 95% on 5 L via nasal cannula. General: Awake, alert, oriented x3. Some mild distress, ill-appearing elderly male. CV: S1, S2. Sinus tachycardia. Peripheral pulses present. Respiratory: Diminished breath sounds. No wheezing or stridor. Gastrointestinal: Abdomen is soft, nontender, nondistended. Positive bowel sounds. Extremities: No clubbing, cyanosis, edema. Neurologic: Nonfocal. Laboratory Data: Sodium 140, potassium 2.6, chloride 96, CO2 38, BUN 14, creatinine 1.7, glucose 105 , lactic acid 1.2, calcium 7.2, AST 39, ALT 22, and albumin 1.8. ABG; pH 7.48, pCO2 52, pO2 52, and bicarb 36. WBC 16.3, H and H 9.5, 28, and platelets 224. Chest x-ray, personally reviewed shows [place] in the right lung base medially, suspicious for area of aspiration or developing pneumonia. Blo od cultures, no growth to date. Urine culture shows mixed ileana. Assessment And Plan: A 67-year-old male with; 1.Ruq-VG-uvbmzksew myocardial infarction. The patient has history of previous stent placement, was seen at [facility] in January, recommended to have CABG due to stenosis and restenosis of the stent , however, has refused and has been taking care of his ill . EF has been shown to be 50-55% with left ventricular hypertrophy. Repeat echocardiogram here at the facility shows EF of 50-55%. He trejo s been seen by Cardiology. He is chest pain free. We will continue with aspirin, Plavix, beta block er. The patient needs to follow up with medical staff physician in the CT surgeon at [facility] for CABG as scheduled . 2.Hypertensive heart disease. 3.Hypokalemia, has been difficult to replace. We will continue IV replacement and monitor. 4.Hypomagnesemia, replaced. We will continue to monitor. 5.Syncope and collapse, improved. We will continue with physical therapy. Head CT is negative. Ca rotid ultrasound does not show any hemodynamically significant stenosis. 6.Possible aspiration pneumonia. We will obtain Speech Therapy evaluation. We will adjust IV antib iotics. 7.Intractable nausea and vomiting, improving. GI has been consulted. We will continue with IV anti emetics. We will switch over to IV PPI. 8.Generalized weakness. Continue PT evaluation and therapy. 9.Coronary artery disease, nikolai artery and nikolai heart without angina. The patient needs CABG. 10.Congestive heart failure, diastolic dysfunction. Lasix held due to hypokalemia. We will continu e fluid restriction. Monitor I's and O's. 11.Diabetes mellitus type 2 without long-term use of insulin, without complications. Continue Accu- Chek and sliding scale insulin. 12.Dyslipidemia. Continue statin. Plan: Continue monitoring in the ICU for close monitoring. The patient did develop some hypoxia, cu rrently on supplemental oxygen. Once electrolytes are more stable, we will step down. /JAZMYN Voice ID: [id number] Report ID: [id number]
[2018-04-27] MEDS: ATORVASTATIN 80 MG TAB PO SCH (20:18)
[2018-04-27] MEDS ORDERED: OXYTOCIN 10 UNIT/ML ML IV ONE (22:17)
[2018-04-28] MEDS ORDERED: METRONIDAZOLE 500mg IVPB 500 MG/100 ML BAG IV ONE (00:47)
[2018-04-28] MEDS: METRONIDAZOLE 500mg IVPB 500 MG/100 ML BAG IV SCH ×3 (00:56→16:08)
[2018-04-28] MEDS: KCL 20 MEQ/100 mL IVPB 20 MEQ/100 ML BAG IV SCH ×4 (00:57→11:44)
[2018-04-28] MEDS: LEVALBUTEROL 1.25 MG/3 ML NEB NEB SCH ×4 (03:20→19:23)
[2018-04-28] MEDS: IPRATROPIUM BROM 0.5MG/2.5ML NEB SCH ×4 (03:20→19:24)
[2018-04-28 05:05] LABS: Absolute Lymphocytes (CBC) 2.2 K/uL (0.7-4.9); Absolute Monocytes 0.4 K/uL (0.1-1.3); Absolute Neutrophil 9.1 K/uL (1.8-8.0); Basophils % 0.5 % (0-1.3); Eosinophils % 0.9 % (0-4.4); Hematocrit 25.1 % (39.6-49.0); Lymphocytes % 18.6 % (15.3-44.8); MCH 27.2 pg (27.0-35.0); MCV 79.5 fL (80-100); MPV 8.1 fL (7.6-11.3); Monocytes % 3.7 % (3.3-12.3); RBC Red Blood Cell Count 3.16 M/uL (4.33-5.43)
[2018-04-28 06:00] LABS: Albumin 1.6 g/dL (3.4-5.0); Bilirubin Total 0.5 mg/dL (0.2-1.0); Magnesium 1.8 mg/dL (1.8-2.4); Potassium 2.6 mmol/L (3.5-5.1); Protein, Total 5.2 g/dL (6.4-8.2)
[2018-04-28] MEDS ORDERED: MAGNESIUM SULFATE 1 gm IVPB 1 GM/100 ML BAG IV ONE (06:11)
[2018-04-28] MEDS: BENZONATATE 100 MG CAP PO PRN ×2 (06:15→16:12)
[2018-04-28] MEDS: NS KCL 20MEQ 20 MEQ/1,000 ML BAG IV SCH (06:15)
[2018-04-28] MEDS: POTASS/SODIUM PHOSPHATE 1 PKT POWD.PACK PO SCH ×4 (06:26→16:08)
[2018-04-28] MEDS ORDERED: Levofloxacin 250mg IV 250 MG/50 ML BAG IV SCH (09:00)
[2018-04-28] MEDS: CITALOPRAM 10 MG TABLET PO SCH (09:31)
[2018-04-28] MEDS: ENOXAPARIN 30 MG/0.3 ML SQ SCH (09:31)
[2018-04-28] MEDS: METOPROLOL TAR 25 MG TAB PO SCH ×2 (09:31→20:50)
[2018-04-28] MEDS: ASPIRIN EC 81 MG TAB PO SCH (09:31)
[2018-04-28] MEDS: PANTOPRAZOLE 40 MG INJ IVP SCH (09:32)
[2018-04-28] MEDS: ISOSORBIDE MONO SR 60 MG TAB PO SCH (09:32)
[2018-04-28] MEDS: SODIUM CHLORIDE 0.9% 10ML INJ IV PRN (09:32)
[2018-04-28] MEDS: JUVEN PACKET PO SCH ×2 (09:51→20:47)
--- NOTE | 2018-04-28 10:16 | CON ---
Date of Consultation: 04/26/2018 Reason For Consultation: Abdominal pain, nausea, and vomiting. History Of Present Illness: Mr. Dick is a 67-year-old gentleman, who was been admitted to ICU wi non-ST elevated MS. Also, he had hypokalemia and syncope. However, the patient states that his p roblems started with nausea, vomiting, epigastric pain, no radiation along with that, shortness of br eath, severe weakness. Except the upper abdominal pain that is located in the epigastrium and retros ternal area, rest of the symptoms felt like he has passed artifact . He denies any hematemesis, eugenio na, or hematochezia. There is no odynophagia or dysphagia. The vomitus consisted of clear _. After coming to the hospital, overnight his abdominal pain has reduced. Nausea and vomiting have also reduced. Denies any shortness of breath. Overall, he is feeling much better than before. Past Medical History: Hypokalemia, MS, hypertension. Past Surgical History: Not related to above. Family History: Denies any gastrointestinal malignancy in the family. Social History: Positive tobacco. Psychiatric History: None. Allergies: REVIEWED IN THE CHART. Review of Systems: General: Prior to acute onset of illness, denies any weight loss or weight gain. No shortness of br eath before the current illness. No fevers or chills. Pulmonary: There is some shortness of breath. No weight gain. No pleuritic chest pain. Cardiac: Positive palpitation. No heart murmur. No orthopnea or dyspnea at this time. GI: As elaborated above. Hepatologic: Denies any history of jaundice, hepatitis, or disease. Musculoskeletal: Generalized weakness. Dermatologic: No pruritus. Genitourinary: None. Neuroendocrine: None. Neuropsychiatric: None. Physical Examination: General: Young male, no other acute distress noted. Hemodynamic respiratory profile . HEENT: . Neck: Supple. No lymphadenopathy. Trachea central in position. Chest: Clear to auscultation and percussion. Cardiovascular: Normal S1, S2. No S3, no S4. Abdomen: Soft, nontender, nondistended. Excellent bowel sounds present. No hepatomegaly. No splen omegaly. No succussion splash. Bowel sounds are present. Neurologic: Alert and oriented x3. Intact memory, mentation, and judgment. Can move all parts of t he extremities without any other problems. Diagnostic Data: Reviewed and analyzed. Hemoglobin and hematocrit 31. BUN and creatinin e are also elevated. Impression, Plan, And Recommendation: Mr. Dick is a 67-year-old gentleman with nausea, vomiting, acute myocardial infarction. His nausea and vomiting of his cardiac events. Given the above situation, I think his GI symptoms are more related to his cardiac event, especially posterior myocardial infarction. Therefore, in this care is supportive includi ng PPI for following along. Due to recent myocardial infarction, no immediate endoscopy had been arr anged; however, it should be necessary on an emergency basis . I have had a long discussion with the patient regarding the indications, contraindications, possible complications, alternatives of EGD of anesthesia he is agreeable. . FANTA/JAZMYN Voice ID: [id number] Report ID: [id number]
[2018-04-28] MEDS: NACHLORIDE 0.45% 1,000 ML with POTASSIUM CL 40 MEQ IV SCH ×2 (13:04)
[2018-04-28] MEDS: Magnesium Sulfate 2gm IVPB 2 G/50 ML BAG IV SCH (13:58)
--- NOTE | 2018-04-28 14:49 | PN ---
Date of Progress Note: 04/28/2018 Subjective: The patient is seen and examined. Chart reviewed and case discussed with RN and Dr. Escobar. The patient is doing better, however, states he is still somewhat nauseated. Had some anxiety issues last night, improved with trazodone. Review of Systems: Negative except as above. Medications: Reviewed. Physical Examination: Vital Signs: Pulse 117, blood pressure 163/91, respirations 23, O2 94% on 2 L via nasal cannula. General: Awake, alert, oriented x3. Some mild distress. CV: S1, S2. Sinus tachycardia. Peripheral pulses present. Respiratory: Diminished breath sounds. No wheezing or stridor. Gastrointestinal: Abdomen is soft, nontender, nondistended. Positive bowel sounds. Extremities: No clubbing, cyanosis, edema. Neurologic: Nonfocal. Laboratory Data: Sodium 138, potassium 2.6, chloride 96, CO2 35, BUN 13, creatinine 1.8, glucose 105, calcium 7.2, phosphorus 2, magnesium 1.8, AST 43, ALT 22, and albumin 1.6. WBC 11.9, H and H 8.6 and 25.1, platelets 197. Blood culture shows no growth to date. Urine culture, no growth. Sputum culture preliminary shows normal quantity of respiratory ileana. Assessment And Plan: A 67-year-old male with: 1. [id number] myocardial infarction. 2. History of previous stents. The patient recommended to have coronary artery bypass graft when seen at [facility] in [place] in January. He has some restenoses of his stent, however, was unable to have the coronary artery bypass graft done as he was taking care of his ill . His EF shows 50% to 55% on echocardiogram. We will continue with aspirin, Plavix, beta-seamus. The patient will need to follow up with in process inspector and CT surgeon at [facility] for coronary artery bypass graft as scheduled. Currently chest pain free. Appreciate Dr. Rodriguez's input. 3. Hypokalemia. We will continue IV replacement. 4. Hypomagnesemia. Continue IV replacement and monitor. 5. Hypophosphatemia, replace and monitor. We will obtain Nephrology consultation. 6. Hypertensive heart disease. 7. Syncope and collapse. CT head negative. Carotid ultrasound does not show any hemodynamically significant stenosis. No further episodes. We will continue physical therapy. 8. Possible aspiration pneumonia. Speech Therapy did not find any abnormalities. We will continue IV antibiotics. We will obtain repeat chest x- ray in the a.m. 9. Intractable nausea, vomiting, resolving. No workup from GI anticipated. Continue conservative management. Continue IV PPI. 10. Generalized weakness. 11. Coronary artery disease, [place] artery and [place] heart without angina. 12. Congestive heart failure, diastolic dysfunction. Continue fluid restriction. Monitor I's and O's. Daily weights. No Lasix due to hypokalemia , which is severe. 13. Diabetes mellitus type 2 without long-term use of insulin without complications. Continue sliding scale insulin. 14. Dyslipidemia. Continue statin. 15. Severe protein calorie malnutrition. Albumin <2.4 Plan: Step down from ICU. We will continue to monitor electrolytes closely. /JAZMYN Voice ID: [id number] Report ID: [id number] FRANCIS
--- NOTE | 2018-04-28 16:34 | CON ---
Date of Consultation: 04/28/2018 Reason For Consult: Acute renal insufficiency with multiple electrolyte abnormalities. History Of Present Illness: Mr. Dick is a 67-year-old very pleasant gentleman with past medical history significant for history of coronary artery disease status post stent in 2002, gout, rheumatoi d arthritis, and hypertension, who presented to [facility] on the Apr complaining of nausea, vomiting, and diarrhea, which has been going on for the past several weeks. The patient states that he always had diarrhea and constipation alternating, but has been getting wo rse lately. He has also been having fever, chills, and chest discomfort. He was recently admitted t o [facility] with similar symptoms and found to have NSTEMI and was recommended to have CABG, bu t he had to leave the hospital due to take care of his sick and was supposed to follow up as out patient. The patient has been in the ICU, admitted to [facility] because of his NSTEMI and has been evaluated by Cardiology, who is recommending deferred workup at this time because of his multiple electrolyte a bnormalities and also because of recommendation for CABG done by previous handyman. The patient states that he still continues to have some watery diarrhea, but the frequency has decreased. His na usea has improved, but he still has poor p.o. intake. Past Medical History: Significant for history of CHF, hypertension, hyperlipidemia, diabetes, rao ry artery disease, angioplasty with 6 stents placement. Family History: Noncontributory. Significant for history of mother with heart disease and cancer an d brother also with heart disease and cancer. Review of Systems: Positive for nausea, vomiting, abdominal discomfort which is improving, diarrhea. Also complains of some chest discomfort. Denies any shortness of breath. Denies any headache, blurry vision, difficul ty with urination. Denies any NSAID use prior to admission. All other review of systems are negativ e. Physical Examination: Vital Signs: At this time are showing temperature of 98.4, pulse rate of 107, respiratory rate of 21 , blood pressure 167/114. General: He appears in no acute distress. Heart: Auscultation of the heart revealed regular rate and rhythm. Lungs: Auscultation of the lungs revealed bilateral equal air entry with no adventitious sounds were noted. Abdomen: Soft and nontender. Bowel sounds were hyperactive. Extremities: Did not reveal any evidence of edema. Laboratory Data: At this time is showing sodium of 138, potassium of 2.6 which is persistently low, chloride of 96, bicarb of 35, BUN of 13, creatinine of 1.8 which is significantly elevated from his p revious creatinine and has remained elevated since the time of admission to the hospital. His lactic acid was 1.2, calcium was low at 7.1, and phosphorus was 2. His albumin was 1.6. CBC showed anemia with hemoglobin of 8.6, hematocrit of 25.1, and platelet count of 197, WBC count of 11.9. He has be en getting close to 60-80 mEq of potassium daily, but with severe persistent hypokalemia. Current Medications: Include NS with 20 mEq of potassium chloride at 50 cc an hour, Tylenol, aspirin , benzonatate, citalopram, metronidazole 500 mg every 8 hours, Jacobo, isosorbide 60 mg a day, multipl e replacements of magnesium and potassium, Levaquin 250 mg every 24 hours, metoprolol 12.5 mg b.i.d., promethazine p.r.n., and trazodone at bedtime. Impression: 1.Acute renal insufficiency, possibly secondary to acute tubular necrosis from ongoing dehydration f rom nausea, vomiting leading to metabolic alkalosis and severe dehydration. The patient is nonoligur ic at this time. We will go ahead and get a renal ultrasound for further evaluation to make sure sarah t there is no obstructive uropathy. 2.Multiple electrolyte abnormalities, majorly hypokalemia and hypomagnesemia. The patient is being severe total body revealed depletion of potassium. I will go ahead and start him on potassium phosph ate with each meal and also start him on amiloride to improve his hypokalemia and also his blood pres sure. 3.Hypophosphatemia. He has been replaced potassium phosphate, should also replace his phosphorus as well as potassium simultaneously. 4.Hypomagnesemia. We will avoid p.o. magnesium replacements given ongoing diarrhea and have ordered for IV magnesium sulfate until Thursday for a total of 6 doses and hopefully should also improve with starting amiloride. 5.Non-ST segment elevation myocardial infarction. The patient is being monitored by Cardiology. Co nservative management plan for right now because of his ongoing renal insufficiency and also recommen dations for coronary artery bypass graft. 6.Diarrhea, nausea, vomiting. The patient is being treated with antibiotics. Leukocytosis is impro ving. GI is on board. Continue to monitor closely. Plan: The patient is overall doing okay at this time. Blood pressure is stable. Will need aggressi ve replacement of electrolytes as mentioned above and follow up closely on his labs tomorrow again. Thank you very much for this consultation. Please do not hesitate to call us with any questions or c oncerns. TEE/JAZMYN Voice ID: [id number] Report ID: [id number]
[2018-04-28] MEDS: ACETAMINOPHEN 325 MG TABLET PO PRN (16:45)
[2018-04-28] MEDS ORDERED: ALBUTEROL 2.5 MG/3 ML NEB SOL NEB ONE (18:00)
[2018-04-28] MEDS ORDERED: POTASSIUM 25 MEQ EFFERV TAB PO ONE (19:00)
[2018-04-28] MEDS: ATORVASTATIN 80 MG TAB PO SCH (20:48)
[2018-04-28] MEDS: AMILORIDE HCL 5 MG TABLET PO SCH (20:49)
--- NOTE | 2018-04-28 21:19 | RAD REPORT ---
EXAM DESCRIPTION: US - Renal Ultrasound-Complete - 04/28/2018 8:19 pm CLINICAL HISTORY: Acute renal failure COMPARISON: None. FINDINGS: The right kidney measures 15.7 x 5.8 x 5.5 cm. The left kidney measures 14.0 x 6.0 x 5.3 cm. Renal cortical thickness and echogenicity are normal. No hydronephrosis or suspicious renal mass. No urinary bladder abnormality. Incidental note made of bilateral pleural effusions not fully assessed on this study. IMPRESSION: No hydronephrosis or suspicious renal mass. Bilateral pleural effusions not fully assessed.
[2018-04-28] MEDS ORDERED: TRAZODONE 50 MG TABLET PO ONE (22:46)
[2018-04-29] MEDS: METRONIDAZOLE 500mg IVPB 500 MG/100 ML BAG IV SCH (00:06)
[2018-04-29] MEDS ORDERED: TRAZODONE 50 MG TABLET PO ONE (00:48)
[2018-04-29] MEDS: LEVALBUTEROL 1.25 MG/3 ML NEB NEB SCH ×2 (01:49→07:11)
[2018-04-29] MEDS: IPRATROPIUM BROM 0.5MG/2.5ML NEB SCH ×2 (01:49→07:12)
[2018-04-29] MEDS ORDERED: POTASSIUM 25 MEQ EFFERV TAB PO ONE ×2 (01:53→10:53)
[2018-04-29] MEDS: NACHLORIDE 0.45% 1,000 ML with POTASSIUM CL 40 MEQ IV SCH ×4 (02:09→16:34)
[2018-04-29] MEDS: ACETAMINOPHEN 325 MG TABLET PO PRN ×3 (02:11→16:34)
[2018-04-29 04:14] LABS: Absolute Lymphocytes (CBC) 1.1 K/uL (0.7-4.9); Absolute Monocytes 0.4 K/uL (0.1-1.3); Absolute Neutrophil 7.4 K/uL (1.8-8.0); Basophils % 0.6 % (0-1.3); Hematocrit 24.6 % (39.6-49.0); Lymphocytes % 12.2 % (15.3-44.8); MCH 26.7 pg (27.0-35.0); MCV 79.9 fL (80-100); MPV 8.4 fL (7.6-11.3); Monocytes % 4.1 % (3.3-12.3); RBC Red Blood Cell Count 3.07 M/uL (4.33-5.43)
[2018-04-29 04:26] LABS: Magnesium 2.1 mg/dL (1.8-2.4); Phosphorus 2.4 mg/dL (2.5-4.9); Potassium 3.6 mmol/L (3.5-5.1)
--- NOTE | 2018-04-29 07:29 | RAD REPORT ---
EXAM DESCRIPTION: RAD - Chest Pa And Lat (2 Views) - 04/29/2018 6:44 am CLINICAL HISTORY: Pneumonia COMPARISON: April 27 TECHNIQUE: PA and lateral views of the chest were obtained. FINDINGS: The lungs are normal volume. Patient has a baseline of prominent interstitial lung disease . No new or progressive lung parenchymal process. Right base is better aerated than on comparison. P atchy left base opacification is still present. Small bilateral pleural effusions are present. Heart size is normal and central vasculature is within normal limits. No pneumothorax. No acute bony findi ng noted. No aortic abnormality. IMPRESSION: Small bilateral pleural effusions are present slightly greater on the left. Patchy left base opacification is present from remnant infiltrate or atelectasis. Better aeration of the right lung base.
[2018-04-29] MEDS ORDERED: LEVALBUTEROL 1.25 MG/3 ML NEB NEB PRN (08:31)
--- NOTE | 2018-04-29 08:37 | P.CNS ---
Date of Consult: 04/29/18 Primary Care Provider: Dr Celestin Chief Complaint: Hypoxemia History of Present Illness: Patient is 67 years of age a very pleasant man started having problems the last Jhon age complaining of diarrhea or vomiting continued to get worse with electrolyte imbalance renal failure he also has some hypoxemia patient has significantly history of coronary artery disease he has had stents he was scheduled to undergo coronary artery bypass grafting surgery at [facility]. He feels fine now as electrolyte imbalance was corrected patient has renal insufficiency presumably chronic troponins elevated chest x-ray possible mild pleural effusions echocardiogram was normal he feels fine denies any shortness of breath cough sputum denies any chest pain Allergies codeine Allergy (Verified 04/25/18 15:25) Hives Hydrocodone-Acetaminophe Allergy (Uncoded 04/25/18 17:30) Unknown Home Medications: Acetaminophen [Acetaminophen Extra Strength] 500 mg PO Q6HR PRN 04/25/18 Allopurinol [Zyloprim] 300 mg PO DAILY 04/25/18 Atorvastatin Calcium [Lipitor] 80 mg PO BEDTIME 04/25/18 Ciprofloxacin HCl [Cipro 500 MG Tablet] 500 mg PO BID 04/25/18 Clopidogrel Bisulfate [Plavix*] 75 mg PO DAILY 04/25/18 Furosemide [Lasix] 20 mg PO BIDL 04/25/18 Isosorbide Mononitrate [Isosorbide Mononitrate ER] 60 mg PO DAILY 04/25/18 Lisinopril [Prinivil] 5 mg PO DAILY 04/25/18 Metoprolol Tartrate [Lopressor] 12.5 mg PO BID 04/25/18 Nitroglycerin 1 tab SL PRN PRN 04/25/18 Omeprazole Magnesium [Prilosec Otc] 20 mg PO DAILY 04/25/18 - Past Medical/Surgical History Diabetic: Yes -: CHF -: HTN -: HLP -: Diabetes -: CAD -: Angioplasty with 6 stents placement -: 5 heart stents - Family History Mother Medical History: Heart disease, Cancer Brother Medical History: Heart disease, Cancer - Social History Alcohol use: No CD- Drugs: No Caffeine use: Yes Place of Residence: Home Review of Systems 10-point ROS is otherwise unremarkable Physical Examination Temp Pulse Resp BP Pulse Ox 98.2 F 101 H 18 167/86 H 94 04/29/18 08:00 04/29/18 08:00 04/29/18 08:00 04/29/18 08:00 04/29/18 08:00 General: Alert, Oriented x3 HEENT: Atraumatic Neck: Supple Respiratory: Clear to auscultation bilaterally Cardiovascular: No edema, Regular rate/rhythm Gastrointestinal: Normal bowel sounds, Soft and benign Musculoskeletal: No clubbing, No swelling Integumentary: No rashes - Problems (1) Hypoxemia Current Visit: Yes Status: Acute Plan: Patient is 67 years of age admitted with electrolyte imbalance diarrhea vomiting significant history of coronary artery disease possible non ST elevation [place] troponins elevated BNP was significantly elevated echocardiogram shows left ventricular hypertrophy most likely he has diastolic dysfunction from his coronary artery disease patient has never smoked recheck pulse ox no evidence of sepsis Dc antibiotics patient has a microcytic anemia use nebs on a p.r.n. basis he is to follow up with [facility]ology for possible bypass
[2018-04-29] MEDS: METOPROLOL TAR 25 MG TAB PO SCH ×2 (08:44→21:59)
[2018-04-29] MEDS: ENOXAPARIN 30 MG/0.3 ML SQ SCH (08:44)
[2018-04-29] MEDS: Magnesium Sulfate 2gm IVPB 2 G/50 ML BAG IV SCH ×2 (08:44→14:38)
[2018-04-29] MEDS: POTASS/SODIUM PHOSPHATE 1 PKT POWD.PACK PO SCH ×3 (08:44→16:33)
[2018-04-29] MEDS: ISOSORBIDE MONO SR 60 MG TAB PO SCH (08:44)
[2018-04-29] MEDS: BENZONATATE 100 MG CAP PO PRN (08:45)
[2018-04-29] MEDS: CITALOPRAM 10 MG TABLET PO SCH (08:45)
[2018-04-29] MEDS: ASPIRIN EC 81 MG TAB PO SCH (08:45)
[2018-04-29] MEDS: JUVEN PACKET PO SCH ×2 (08:46→21:00)
[2018-04-29] MEDS ORDERED: AMILORIDE HCL 5 MG TABLET PO SCH (09:00)
[2018-04-29 09:33] LABS: Ferritin 894.5 ng/mL (26-388)
[2018-04-29] MEDS: AMILORIDE HCL 5 MG TABLET PO SCH ×2 (10:10→22:01)
[2018-04-29] MEDS ORDERED: GUAIFENESIN/CODEINE 5ML UCUP PO PRN (11:07)
[2018-04-29] MEDS: GUAIFENESIN 600 MG SA TAB PO SCH ×2 (11:58→22:01)
--- NOTE | 2018-04-29 14:46 | PN ---
Date of Progress Note: 04/29/2018 Subjective: The patient is seen and examined. Chart reviewed and case discussed with RN and Dr. Emmanuel. The patient still having significant amount of cough with some acute sputum production. Review of Systems: Negative except as above. Medications: Reviewed. Physical Examination: Vital Signs: Temperature 98.2, heart rate 101, blood pressure 157/86, respirations 18, O2 94% on 2 L via nasal cannula. General: Awake, alert, oriented x3, some mild distress. Elderly male, somewhat ill-appearing. CV: S1, S2. Sinus tachycardia. Peripheral pulses present. Respiratory: Diminished breath sounds at the bases with some wheezing heard. Gastrointestinal: Abdomen is soft, nontender, nondistended. Positive bowel sounds. No guarding or rigidity. Extremities: No clubbing, cyanosis, or edema. Neurologic: Nonfocal. Laboratory Data: Sodium 137, potassium 3.6, chloride 96, CO2 35, BUN 14, creatinine 1.8, glucose 104, calcium 7.3, phosphorus 2.4, magnesium 2.1. Iron 13, total iron binding capacity 129, transferrin 92, ferritin 894. WBC 9.3, H and H 8.2 and 24.6, platelets 183, neutrophils 80%. Blood cultures, no growth to date. Sputum culture shows normal quantity of respiratory ileana. Chest x- ray personally reviewed, shows small bilateral pleural effusions present, slightly greater on the left. Patchy left base opacification is present from an infiltrate or atelectasis, better aeration of the right lung base. Assessment And Plan: A 67-year-old male with: 1. Trx-JO-unqmippuy myocardial infarction. The patient has history of stent and recommended to have coronary artery bypass graft at [facility]; however, was taking care of his . He will need to follow up with the CT surgeon and his hauling contractor at [facility] for a coronary artery bypass graft as scheduled. EF currently is 50% to 55%. Chest pain-free. Appreciate Cardiology input. 2. Hypokalemia, replace and monitor. 3. Hypophosphatemia. We will replace and monitor. 4. Hypertensive heart disease. 5. Syncope and collapse. CT head negative. No further episodes. Continue physical therapy. 6. Aspiration pneumonia. Chest x-ray shows some pleural effusions and improving aeration. Dr. Emmanuel has been consulted. Antibiotics were discontinued. White count has normalized. The patient still having significant amount of cough and sputum production. We will start on some Robitussin A-C and Mucinex. 7. Intractable nausea and vomiting, resolved. GI on board. No intervention planned. 8. Anemia, iron deficiency. We will continue to monitor H and H, transfuse as needed. The patient will need to have outpatient colonoscopy to rule out any sort of malignancy. 9. Generalized weakness, improving. 10. Coronary artery disease, [facility] [place] artery and [facility] heart without angina. 11. Diastolic heart failure. We will continue to monitor I's and O's. Continue fluid restriction and sodium restricted diet. Lasix on hold due to severe hypokalemia. 12. Diabetes mellitus type 2 without long-term use of insulin without complications. Continue sliding scale insulin. 13. Dyslipidemia, statin. 14. Severe protein calorie malnutrition: continue proteins supplements Plan: Discharge planning. NICOLAS Voice ID: [id number] Report ID: [id number] FRANCIS
[2018-04-29] MEDS ORDERED: TRAZODONE 50 MG TABLET PO PRN (19:31)
--- NOTE | 2018-04-29 20:33 | P.PN ---
Date of Service: 04/29/18 Vital Signs Temp Pulse Resp BP Pulse Ox 98.1 F 91 H 18 149/81 H 92 04/29/18 16:00 04/29/18 16:00 04/29/18 16:00 04/29/18 16:00 04/29/18 16:00 Medications Acetaminophen (Tylenol -Tablet) 650 mg PO Q6H PRN PRN Reason: [id number] Stop: 05/25/18 20:19 Last Admin: 04/29/18 16:34 Dose: 650 mg Amiloride HCl (Midamor) 5 mg PO BID ZAY Stop: 05/28/18 21:01 Last Admin: 04/29/18 10:10 Dose: 5 mg Aspirin (Aspirin Ec) 81 mg PO DAILY ZAY Stop: 05/26/18 09:01 Last Admin: 04/29/18 08:45 Dose: 81 mg Atorvastatin Calcium (Lipitor) 80 mg PO BEDTIME ZAY Stop: 05/25/18 21:01 Last Admin: 04/28/18 20:48 Dose: 80 mg Benzonatate (Tessalon Perle) 100 mg PO Q6H PRN PRN Reason: COUGH Stop: 05/28/18 06:02 Last Admin: 04/29/18 08:45 Dose: 100 mg Citalopram Hydrobromide (Celexa) 20 mg PO DAILY ZAY Stop: 05/26/18 09:01 Last Admin: 04/29/18 08:45 Dose: 20 mg Enoxaparin Sodium (Lovenox 30 Mg Inj) 30 mg SQ DAILY ZAY Stop: 05/27/18 09:01 Last Admin: 04/29/18 08:44 Dose: 30 mg Guaifenesin (Mucinex 600mg) 600 mg PO BID ZAY Stop: 05/29/18 21:01 Last Admin: 04/29/18 11:58 Dose: 600 mg Guaifenesin/Codeine Phosphate (Robitussin A-C Syrup) 5 ml PO Q6H PRN PRN Reason: COUGH Stop: 05/29/18 11:08 Last Admin: 04/29/18 11:58 Dose: 5 ml Potassium Chloride 40 meq/ (Sodium Chloride) 1,020 mls @ 75 mls/hr IV .[id number] [facility] Stop: 05/28/18 13:01 Last Admin: 04/29/18 16:34 Dose: 1,020 mls Magnesium Sulfate (Magnesium Sulfate 2 Gm/50ml Ivpb (Premix)) 2 g in 50 mls @ 50 mls/hr IV BID* ZAY Stop: 04/30/18 14:01 Last Admin: 04/29/18 14:38 Dose: 50 mls Isosorbide Mononitrate (Imdur) 60 mg PO DAILY ZAY Stop: 05/26/18 09:01 Last Admin: 04/29/18 08:44 Dose: 60 mg L-Arginine/L-Glutamine/HMB (Jacobo) 1 pkt PO BID ZAY Stop: 05/26/18 21:01 Last Admin: 04/29/18 08:46 Dose: 1 pkt Levalbuterol HCl (Xopenex) 1.25 mg NEB Q6HP PRN PRN Reason: SHORTNESS OF BREATH Stop: 05/29/18 08:32 Metoprolol Tartrate (Lopressor) 12.5 mg PO BID [facility] Stop: 05/25/18 21:01 Last Admin: 04/29/18 08:44 Dose: 12.5 mg Nitroglycerin (Nitrostat) 0.4 mg SL PRN PRN PRN Reason: CHEST PAIN Stop: 05/25/18 18:23 Potassium Phos/Sodium Phos (Neutra-Phos Pwd) 1 pkt PO AC ZAY Stop: 05/28/18 16:31 Last Admin: 04/29/18 16:33 Dose: 1 pkt Promethazine HCl (Phenergan) 12.5 mg IV Q6H PRN PRN Reason: NAUSEA / VOMITING Stop: 05/26/18 20:18 Last Admin: 04/26/18 20:43 Dose: 12.5 mg Sodium Chloride (Sodium Chloride 10 Ml Inj) 10 ml IV UD PRN PRN Reason: Diluant Stop: 05/27/18 07:01 Last Admin: 04/28/18 09:32 Dose: 10 ml Trazodone HCl (Desyrel) 50 mg PO BEDTIME PRN PRN PRN Reason: INSOMNIA Stop: 05/29/18 19:32 Assessment/ Plan: Nephrology. Feeling better today. CPS improved without CP or SOB. No acute events overnight. Vitals, medications, blood work and imaging reviewed in the chart. NAD. Anicteric. Neck supple. CTA. RRR. Soft Abd. No C/C/E. LLE patchy rash. AAO. Normal speech. A/ VISHAL/ Dehydration in the setting of severe GE. CKD III with proteinuria. Hypokalemia. Alkalosis. Hypocalcemia. HypoPO4. HTN. Iron Deficiency Anemia. Severe protein malnutrition/ Hypoalbuminemia. P/ Continue current POC and Medications. Agree with IVF. Electrolyte replacement as ordered. No NSAIDs. AM labs. Daily weight. EXAM DESCRIPTION: RAD - Chest Pa And Lat (2 Views) - 04/29/2018 6:44 am CLINICAL HISTORY: Pneumonia COMPARISON: April 27 TECHNIQUE: PA and lateral views of the chest were obtained. FINDINGS: The lungs are normal volume. Patient has a baseline of prominent interstitial lung disease. No new or progressive lung parenchymal process. Right base is better aerated than on comparison. Patchy left base opacification is still present. Small bilateral pleural effusions are present. Heart size is normal and central vasculature is within normal limits. No pneumothorax. No acute bony finding noted. No aortic abnormality. IMPRESSION: Small bilateral pleural effusions are present slightly greater on the left. Patchy left base opacification is present from remnant infiltrate or atelectasis. Better aeration of the right lung base.
[2018-04-29] MEDS: ATORVASTATIN 80 MG TAB PO SCH (22:00)
[2018-04-30 04:05] LABS: Urine Appearance CLEAR; Urine Bilirubin NEGATIVE (NEG); Urine Blood 3+ (NEG); Urine Color YELLOW; Urine Glucose NEGATIVE (NEG); Urine Protein 3+ (NEG); Urine Urobilinogen 0.2 mg/dL (0.2-1.0); Urine pH 7.5 (5.0-7.0)
[2018-04-30 04:20] LABS: Urine Bacteria <20 /HPF (NONE SEEN); Urine Culture Reflex Order NOT NEEDED; Urine RBC TNTC /HPF (NONE SEEN)
[2018-04-30 05:49] LABS: Absolute Lymphocytes (CBC) 1.4 K/uL (0.7-4.9); Absolute Monocytes 0.5 K/uL (0.1-1.3); Absolute Neutrophil 7.4 K/uL (1.8-8.0); Basophils % 0.9 % (0-1.3); Eosinophils % 4.9 % (0-4.4); Hematocrit 28.8 % (39.6-49.0); Lymphocytes % 14.5 % (15.3-44.8); MCH 26.1 pg (27.0-35.0); MCV 80.2 fL (80-100); MPV 8.2 fL (7.6-11.3); Monocytes % 5.5 % (3.3-12.3); RBC Red Blood Cell Count 3.59 M/uL (4.33-5.43)
[2018-04-30 06:00] LABS: Magnesium 2.8 mg/dL (1.8-2.4); Phosphorus 3.4 mg/dL (2.5-4.9); Potassium 4.9 mmol/L (3.5-5.1)
[2018-04-30] MEDS: NACHLORIDE 0.45% 1,000 ML with POTASSIUM CL 40 MEQ IV SCH ×2 (06:25)
[2018-04-30] MEDS: POTASS/SODIUM PHOSPHATE 1 PKT POWD.PACK PO SCH (07:30)
[2018-04-30] MEDS: ENOXAPARIN 30 MG/0.3 ML SQ SCH (09:00)
[2018-04-30] MEDS: JUVEN PACKET PO SCH (09:00)
[2018-04-30] MEDS: ASPIRIN EC 81 MG TAB PO SCH (09:00)
[2018-04-30] MEDS: Magnesium Sulfate 2gm IVPB 2 G/50 ML BAG IV SCH (09:00)
[2018-04-30] MEDS: CITALOPRAM 10 MG TABLET PO SCH (11:01)
[2018-04-30] MEDS: METOPROLOL TAR 25 MG TAB PO SCH (11:01)
[2018-04-30] MEDS: GUAIFENESIN 600 MG SA TAB PO SCH (11:02)
[2018-04-30] MEDS: ISOSORBIDE MONO SR 60 MG TAB PO SCH (11:02)
[2018-04-30] MEDS: AMILORIDE HCL 5 MG TABLET PO SCH (11:03)
--- NOTE | 2018-05-01 08:52 | DS ---
Date of Discharge: 04/30/2018 Consultants: 1.Negro Rodriguez MD with Cardiology. 2.Kevin Sosa MD with Cardiology. 3.Raheem Emmanuel MD with Pulmonology. 4.Warner Diehl DO with Nephrology. 5.Marita Wood MD with GI. Admitting Diagnoses: 1.Yny-BV-xqsnsfsfl myocardial infarction. 2.Syncope and collapse. 3.Nausea, vomiting. 4.Generalized weakness. 5.Coronary artery disease. 6.Congestive heart failure. 7.Diabetes. Discharge Diagnoses: 1.Rhr-BF-lihtajrpm myocardial infarction. 2.Hypokalemia, replaced. 3.Hypophosphatemia, replaced. 4.Hypertensive heart disease. 5.Syncope and collapse. No further episodes. 6.Aspiration pneumonia. 7.Intractable nausea and vomiting. 8.Anemia, iron deficiency. 9.Generalized weakness. 10.Coronary artery disease, upper [place] artery and upper [place] heart without angina. 11.Generalized weakness, resolved. 12.Diastolic heart failure, acute. 13.Diabetes mellitus type 2 without long-term improvement with no complication. 14.Dyslipidemia. 15.Severe protein-calorie malnutrition. Hospital Course: The patient is a 67-year-old male who has significant comorbidities including diast olic heart failure, COPD, heart disease with stent, diabetes, hypertension, comes in with syncopal ep isode, had been dehydrated with intractable nausea, vomiting, and diarrhea. The patient was recently admitted to [facility] for similar symptoms, found to have an NSTEMI and was recommended to have CABG; however, he left the hospital to take care of his sick . The patient was also found to [facility] NSTEMI care facility. He was seen by Dr. Rodriguez and Dr. Sosa who was started on chest pain alfonso delines. Initially, there was no plans for cardiac cath as the patient already has plans for CABG at [facility]. The patient had muscle imaging studies including carotid artery ultrasound, which did not show any hemodynamically significant stenosis. Head CT scan was also done which was negative for any acu te changes. The patient; however, did have electrolyte abnormalities and developed acute kidney inju ry; however, remained at his baseline. Nephrology was consulted. The patient also found to be anemi c. Iron panel showed iron deficiency anemia. His electrolytes were corrected. Potassium was initiall y 1.6 upon admission. He did have some acute on chronic CHF, which was treated. GI was consulted by Cardiology for abdominal pain and then intractable nausea and vomiting, which resolved. The patient otherwise did well; however, subsequently he did develop cough and sputum production. Chest x-ray s howed possible aspiration pneumonia. He was started on IV antibiotics. Speech therapy evaluated his swallowing function which was normal. Dr. Emmanuel with Pulmonology was consulted. The patient was not felt to have any pneumonia. Antibiotics were discontinued by Pulmonology. His blood cultures a nd sputum cultures remained negative. Overall, the patient did well without any further chest pain, shortness of breath. His cough was improving with symptomatic treatment. The patient did have some overnight episodes of anxiety and was started on Celexa and trazodone as needed. The patient was the n cleared for discharge from consultants' standpoint. Followup: Follow up with PCP in 2 days. [address] up with CT surgeon and outside sales engineer at [facility], davide cabrera his CABG which in the ER for worsening condition. Diet: Low-sodium fluid-restricted diet. Activity: As tolerated. Medications: As per medication reconciliation list. Total time spent discharging the patient was 45 minutes. Physical Examination: General: Awake, alert, oriented, no acute distress. CV: S1 and S2. No murmurs. Respiratory: Moving air well bilaterally. Abdomen: Soft, nontender, nondistended. Positive bowel sounds. Extremities: No clubbing, cyanosis, edema. Neurologic: No focal. SA/MODL Voice ID: [id number] Report ID: [id number]
== END 2018-04-30 11:46 | disposition home or self-care (01) | DRG 280 ==
LOC: ER 12:39 → ERHOLD 13:40 → OBSVTOIN 13:40 → 3RD-ICU 17:07 → 4TH 04-28 14:54 → 2ND 04-29 17:57
PROVIDERS: ADMIT Family Medicine; ATTEND Family Medicine
DX: I21.4 Non-ST elevation (NSTEMI) myocardial infarction (principal); I50.33 Acute on chronic diastolic (congestive) heart failure; E43 Unspecified severe protein-calorie malnutrition; N17.0 Acute kidney failure with tubular necrosis; J69.0 Pneumonitis due to inhalation of food and vomit; I13.0 Hypertensive heart and chronic kidney disease with heart failure and stage 1 through stage 4 chronic kidney disease, or unspecified chronic kidney disease; J44.9 Chronic obstructive pulmonary disease, unspecified; I25.10 Atherosclerotic heart disease of native coronary artery without angina pectoris; E87.6 Hypokalemia; I11.0 Hypertensive heart disease with heart failure; E83.42 Hypomagnesemia; E78.5 Hyperlipidemia, unspecified; E86.0 Dehydration; E83.39 Other disorders of phosphorus metabolism; E11.22 Type 2 diabetes mellitus with diabetic chronic kidney disease; N18.3 Chronic kidney disease, stage 3 (moderate); D50.9 Iron deficiency anemia, unspecified; Z68.24 Body mass index [BMI] 24.0-24.9, adult
CPT/HCPCS: 36415; 70450; 71045; 71046; 76770; 80048; 80053; 80061; 80076; 81001; 81003; 82550; 82553; 82728; 82805; 82962; 83540; 83605; 83690; 83735; 83880; 84100; 84132; 84145; 84443; 84466; 84484; 84550; 85025; 85610; 85730; 86140; 87040; 87070; 87086; 87088; 87205; 93005; 93306; 93880; 94760; 96361; 96365; 96372; 96375; 97163; 99285; C9113; J1650; J2405; J2550; J2590; J3475; J7030

== ENCOUNTER 2018-09-29 16:24 | Emergency (ER) | payer OTHER ==
[2018-09-29] MEDS ORDERED: DIAZEPAM 5 MG TABLET ONE (17:01)
[2018-09-29 17:05] LABS: Absolute Lymphocytes (CBC) 1.7 K/uL (0.7-4.9); Absolute Monocytes 0.2 K/uL (0.1-1.3); Eosinophils % 2.7 % (0-4.4); Hematocrit 24.9 % (39.6-49.0); Lymphocytes % 33.5 % (15.3-44.8); MCH 26.1 pg (27.0-35.0); MCV 78.6 fL (80-100); MPV 7.7 fL (7.6-11.3); Monocytes % 4.4 % (3.3-12.3); RBC Red Blood Cell Count 3.17 M/uL (4.33-5.43)
[2018-09-29 17:12] LABS: Protime INR 1.07
--- NOTE | 2018-09-29 17:13 | RAD REPORT ---
EXAM DESCRIPTION: RAD - Chest Single View - 09/29/2018 5:02 pm CLINICAL HISTORY: Weakness, dizziness, cough COMPARISON: April 2018 TECHNIQUE: AP portable chest image was obtained 1653 hours . FINDINGS: Lungs are fibrotic as a baseline. The diffuse pattern is not substantially different. Patc hy left base opacification is present and minimal left base pneumonia is possible. Correlation is nee ded with any clinical findings. Sternotomy wires are in place. Heart and vasculature are normal. No measurable pleural effusion and n o pneumothorax. No acute bony abnormality seen. No acute aortic findings suspected. IMPRESSION: Questionable small left lung base pneumonia.
[2018-09-29 17:27] LABS: ALT/SGPT 10 U/L (12-78); AST/SGOT 14 U/L (15-37); Albumin 2.1 g/dL (3.4-5.0); Alkaline Phosphatase 74 U/L (45-117); BUN Blood Urea Nitrogen 25 mg/dL (7-18); Bicarbonate 25 mmol/L (21-32); Bilirubin Direct < 0.1 mg/dL (0-0.2); Bilirubin Total 0.2 mg/dL (0.2-1.0); Glucose Level 88 mg/dL (74-106); Magnesium 2.1 mg/dL (1.8-2.4); NT PRO-BNP 30216 pg/mL (<125); Potassium 4.2 mmol/L (3.5-5.1); Protein, Total 6.1 g/dL (6.4-8.2); Sodium Level 139 mmol/L (136-145); Troponin (Emerg Dept Use Only) 0.02 ng/mL (0.0-0.045)
--- NOTE | 2018-09-29 17:30 | RAD REPORT ---
EXAM DESCRIPTION: CT - Head Brain Wo Cont - 09/29/2018 5:20 pm CLINICAL HISTORY: Weakness, dizziness, syncope COMPARISON: CT head April 2018 TECHNIQUE: Axial 5 mm thick images of the head were obtained without IV contrast. All CT scans are performed using dose optimization technique as appropriate and may include automated exposure control or mA/KV adjustment according to patient size. FINDINGS: No intracranial hemorrhage, mass, edema or shift of mid-line structures. No acute infarcti on changes seen. Minimal chronic ischemic changes present. Ventricles are normal. Mastoid air cells are clear. Small air-fluid levels are seen in the partially imaged maxillary sinuse s. Ethmoid mucosal thickening present. No acute bony findings. IMPRESSION: No intracranial abnormality identified. Acute sinusitis changes.
--- NOTE | 2018-09-29 18:24 | ER ---
Nurse's Notes [facility] Name: Jacob Dick Age: 67 yrs Sex: Male : 1950 Arrival Date: 09/29/2018 Time: 16:27 Bed 23 Private MD: Diagnosis: Benign paroxysmal vertigo Presentation: 09/29 16:28 Presenting complaint: EMS states: pt had a sudden onset of extreme dizziness, and sg difficulty standing and walking, reports symptoms resolve as long as eyes are closed, but as soon as eyes are open the symptoms return. Transition of care: patient was not received from another setting of care. Onset of symptoms was September 29, 2018. Risk Assessment: Do you want to hurt yourself or someone else? Patient reports no desire to harm self or others. Initial Sepsis Screen: Does the patient meet any 2 criteria? No. Patient's initial sepsis screen is negative. Does the patient have a suspected source of infection? No. Patient's initial sepsis screen is negative. Care prior to arrival: None. 16:28 Method Of Arrival: EMS: [facility] sg 16:28 Acuity: ERIC 4 sg Triage Assessment: 18:49 Pain: Denies pain. iw Historical: - Allergies: 16:31 Codeine; sg 16:31 Hydrocodone-Acetaminophen; sg - PMHx: 16:31 Gout; Hyperlipidemia; Hypertension; sg - PSHx: 16:31 foot; sg - Immunization history:: Adult Immunizations up to date. - Social history:: Smoking status: Patient/guardian denies using tobacco. - Ebola Screening: : Patient negative for fever greater than or equal to 101.5 degrees Fahrenheit, and additional compatible Ebola Virus Disease symptoms Patient denies exposure to infectious person Patient denies travel to an Ebola-affected area in the 21 days before illness onset No symptoms or risks identified at this time. Screenin:31 Abuse screen: Denies threats or abuse. Denies injuries from another. Nutritional sg screening: No deficits noted. Tuberculosis screening: No symptoms or risk factors identified. Never had TB. Fall Risk None identified. Assessment: 16:30 General: Appears in no apparent distress. slender, well groomed, well developed, well sg nourished, Behavior is calm, cooperative, appropriate for age. Neuro: Level of Consciousness is awake, alert, obeys commands, Oriented to person, place, time, situation, Hospital Food Service Worker are equal bilaterally Moves all extremities. Full function Gait is steady, Speech is normal, Facial symmetry appears normal, Pupils are PERRLA. Neuro: Reports dizziness, Denies weakness blurred vision difficulty swallowing, paresthesias numbness headache photophobia diplopia. Cardiovascular: Capillary refill is brisk in bilateral fingers Patient's skin is warm and dry. Chest pain is denied. Respiratory: Airway is patent Respiratory effort is even, unlabored, Respiratory pattern is regular, symmetrical. GI: Abdomen is flat, non-distended, Reports tolerance of fluids, tolerance of food. : No signs and/or symptoms were reported regarding the genitourinary system. EENT: No signs and/or symptoms were reported regarding the EENT system. Derm: Skin is pink, warm \T\ dry. Musculoskeletal: No signs and/or symptoms reported regarding the musculoskeletal system. Vital Signs: 16:29 BP 142 / 86; Pulse 90; Resp 18; Temp 97.7; Pulse Ox 100% on R/A; Pain 0/10; sg 16:31 Weight 68.95 kg; Height 5 ft. 9 in. (175.26 cm); sg 17:52 BP 147 / 75; Pulse 98; Resp 20; Pulse Ox 100% on R/A; mh5 16:31 Body Mass Index 22.45 (68.95 kg, 175.26 cm) ED Course: 16:27 Patient arrived in ED. sg 16:29 Triage completed. sg 16:29 Harinder Chau NP is PHCP. pm1 16:29 Darrion Joseph MD is Attending Physician. pm1 16:30 Arm band placed on. sg 16:40 Jens Parker, GIAN is Primary Nurse. sg 16:47 Initial lab(s) drawn, by hi, sent to lab. EKG done, by emergency medical technician. reviewed by Harinder Chau NP. Inserted saline lock: 20 gauge in right forearm, using aseptic technique. Blood collected. 16:49 Patient has correct armband on for positive identification. Placed in gown. Bed in low mh5 position. Call light in reach. Side rails up X2. Warm blanket given. quality assurance monitor final on. Pulse ox on. NIBP on. 16:49 Basic Metabolic Panel Sent. 5 16:49 CBC with Diff Sent. 5 16:49 LFT's Sent. 5 16:50 Magnesium Sent. 5 16:50 NT PRO-BNP Sent. 5 16:50 PT-INR Sent. 5 16:50 Troponin (emerg Dept Use Only) Sent. 5 16:58 EKG done, by emergency medical technician. reviewed by Harinder Cahu NP. 3 17:03 XRAY Chest (1 view) In Process Unspecified. EDMS 17:20 CT Head Brain wo Cont In Process Unspecified. EDMS 17:20 CT completed. Patient tolerated procedure well. Patient moved back from CT. ut 18:48 No provider procedures requiring assistance completed. IV discontinued, intact, iw bleeding controlled, No redness/swelling at site. Pressure dressing applied. Administered Medications: 17:09 Drug: Valium 5 mg Route: PO; sg 18:14 Follow up: Response: No adverse reaction iw Outcome: 18:22 Discharge ordered by MD. pm1 18:48 Discharged to home ambulatory, with friend. iw 18:48 Condition: good 18:48 Discharge instructions given to patient, Instructed on discharge instructions, follow up and referral plans. medication usage, Demonstrated understanding of instructions, follow-up care, medications, Prescriptions given X 1. 18:49 Patient left the ED. iw Signatures: Dispatcher [employer] EDJens Larson RN RN sg Williams, Irene, RN RN Harinder Chau NP COUNTER CLERK TRACTOR [employer]S pm1 Wesley, Pranav Sood, [facility] Leticia Victor 3
--- NOTE | 2018-09-29 18:24 | EDPHYS ---
Physician Documentation [facility] Name: Jacob Dick Age: 67 yrs Sex: Male : 1950 Arrival Date: 09/29/2018 Time: 16:27 Bed 23 Private MD: LEAH Physician Darrion Joseph HPI: 09/29 17:00 This 67 yrs old Male presents to ER via EMS with complaints of Dizziness. pm1 17:00 The patient presents with sense of spinning, vertigo. Onset: The symptoms/episode pm1 began/occurred today. Context: occurred at home, just prior to the episode the patient experienced no apparent symptoms. Modifying factors: The symptoms are alleviated by closing eyes, the symptoms are aggravated by movement of head, changing position, Opening eyes. 17:00 Associated signs and symptoms: Pertinent negatives: abdominal pain, chest pain, pm1 shortness of breath, fever, cough. The patient has experienced a previous episode, many years ago, and the symptoms today are exactly the same. The patient has been recently seen by a physician: with different complaint(s), cough, and prescribed antibiotics. Historical: - Allergies: 16:31 Codeine; sg 16:31 Hydrocodone-Acetaminophen; sg - PMHx: 16:31 Gout; Hyperlipidemia; Hypertension; sg - PSHx: 16:31 foot; sg - Immunization history:: Adult Immunizations up to date. - Social history:: Smoking status: Patient/guardian denies using tobacco. - Ebola Screening: : Patient negative for fever greater than or equal to 101.5 degrees Fahrenheit, and additional compatible Ebola Virus Disease symptoms Patient denies exposure to infectious person Patient denies travel to an Ebola-affected area in the 21 days before illness onset No symptoms or risks identified at this time. ROS: 17:00 Constitutional: Negative for fever, chills, and weight loss, Eyes: Negative for injury, pm1 pain, redness, and discharge, ENT: Negative for injury, pain, and discharge, Neck: Negative for injury, pain, and swelling, Cardiovascular: Negative for chest pain, palpitations, and edema, Respiratory: Negative for shortness of breath, cough, wheezing, and pleuritic chest pain, Abdomen/GI: Negative for abdominal pain, nausea, vomiting, diarrhea, and constipation, Back: Negative for injury and pain, : Negative for injury, bleeding, discharge, and swelling, MS/Extremity: Negative for injury and deformity, Skin: Negative for injury, rash, and discoloration. 17:00 Neuro: Positive for dizziness, Negative for headache, numbness, seizure activity, tingling, weakness. Exam: 17:00 Constitutional: This is a well developed, well nourished patient who is awake, alert, pm1 and in no acute distress. Head/Face: Normocephalic, atraumatic. Eyes: Pupils equal round and reactive to light, extra-ocular motions intact. Lids and lashes normal. Conjunctiva and sclera are non-icteric and not injected. Cornea within normal limits. Periorbital areas with no swelling, redness, or edema. ENT: Nares patent. No nasal discharge, no septal abnormalities noted. Tympanic membranes are normal and external auditory canals are clear. Oropharynx with no redness, swelling, or masses, exudates, or evidence of obstruction, uvula midline. Mucous membranes moist. Neck: Trachea midline, no thyromegaly or masses palpated, and no cervical lymphadenopathy. Supple, full range of motion without nuchal rigidity, or vertebral point tenderness. No Meningismus. Chest/axilla: Normal chest wall appearance and motion. Nontender with no deformity. No lesions are appreciated. Cardiovascular: Regular rate and rhythm with a normal S1 and S2. No gallops, murmurs, or rubs. Normal PMI, no JVD. No pulse deficits. Respiratory: Lungs have equal breath sounds bilaterally, clear to auscultation and percussion. No rales, rhonchi or wheezes noted. No increased work of breathing, no retractions or nasal flaring. Abdomen/GI: Soft, non-tender, with normal bowel sounds. No distension or tympany. No guarding or rebound. No evidence of tenderness throughout. Back: No spinal tenderness. No costovertebral tenderness. Full range of motion. Skin: Warm, dry with normal turgor. Normal color with no rashes, no lesions, and no evidence of cellulitis. MS/ Extremity: Pulses equal, no cyanosis. Neurovascular intact. Full, normal range of motion. 17:00 Neuro: Orientation: is normal, Cranial nerves: CN II- XII are normal as tested, vestibular nystagmus. Cerebellar function: heel to zayas testing is normal, Motor: moves all fours, strength is normal, strength is 5/5 in all extremities, Sensation: is normal, no obvious gross deficits. Vital Signs: 16:29 BP 142 / 86; Pulse 90; Resp 18; Temp 97.7; Pulse Ox 100% on R/A; Pain 0/10; sg 16:31 Weight 68.95 kg; Height 5 ft. 9 in. (175.26 cm); sg 17:52 BP 147 / 75; Pulse 98; Resp 20; Pulse Ox 100% on R/A; mh5 16:31 Body Mass Index 22.45 (68.95 kg, 175.26 cm) MDM: 16:30 Patient medically screened. pm1 18:12 Data reviewed: vital signs. Data interpreted: Pulse oximetry: on room air is 100 %. pm1 Interpretation: normal. Counseling: I had a detailed discussion with the patient and/or guardian regarding: the historical points, exam findings, and any diagnostic results supporting the discharge/admit diagnosis, lab results, radiology results, the need for outpatient follow up, to return to the emergency department if symptoms worsen or persist or if there are any questions or concerns that arise at home. 18:12 ED course: Patient's vertigo resolved with Valium. Patient is currently taking pm1 antibiotics from PCP. Taking cefuroxime. It was prescribed by his PCP, Maria Esther. Patient has had a cough for the past 2 weeks and reports that it is improving. Had fever 1 week ago that resolved. No chest pain or shortness of breath present now. Questionable small left lung base pneumonia on x-ray today is likely a resolving pneumonia since patient's symptoms is without any shortness of breath or fever and his cough is improving. Instructed to follow up with PCP for repeat x-ray and to return to the ER for worsening of condition or for any concerns. 09/29 16:38 Order name: Basic Metabolic Panel; Complete Time: 17:49 pm1 09/29 16:38 Order name: CBC with Diff; Complete Time: 17:49 pm1 09/29 16:38 Order name: LFT's; Complete Time: 17:49 pm1 09/29 16:38 Order name: Magnesium; Complete Time: 17:49 pm1 09/29 16:38 Order name: NT PRO-BNP; Complete Time: 17:49 pm1 09/29 16:38 Order name: PT-INR; Complete Time: 17:49 pm1 09/29 16:38 Order name: Troponin (emerg Dept Use Only); Complete Time: 17:49 pm1 09/29 16:38 Order name: XRAY Chest (1 view); Complete Time: 17:49 pm1 09/29 16:38 Order name: EKG; Complete Time: 16:39 pm1 09/29 16:38 Order name: Cardiac monitoring; Complete Time: 16:39 pm1 09/29 16:38 Order name: EKG - Nurse/Tech; Complete Time: 16:39 pm1 09/29 16:38 Order name: CT Head Brain wo Cont; Complete Time: 17:49 pm1 09/29 16:38 Order name: IV Saline Lock; Complete Time: 16:39 pm1 09/29 16:38 Order name: Labs collected and sent; Complete Time: 16:39 pm1 09/29 16:38 Order name: O2 Per Protocol; Complete Time: 16:39 pm1 09/29 16:38 Order name: O2 Sat Monitoring; Complete Time: 16:39 pm1 Administered Medications: 17:09 Drug: Valium 5 mg Route: PO; 18:14 Follow up: Response: No adverse reaction iw Disposition: 09/30 07:08 Co-signature as Attending Physician, Darrion Joseph MD I agree with the assessment and jenny plan of care. Disposition: 09/29/18 18:22 Discharged to Home. Impression: Benign paroxysmal vertigo. - Condition is Stable. - Discharge Instructions: Benign Positional Vertigo. - Prescriptions for Valium 2 mg Oral Tablet - take 1 tablet by ORAL route every 8 hours As needed; 20 tablet. - Medication Reconciliation Form, Thank You Letter, Antibiotic Education, Prescription Opioid Use form. - Follow up: Emergency Department; When: As needed; Reason: Worsening of condition. Follow up: Private Physician; When: 2 - 3 days; Reason: Recheck today's complaints, Continuance of care, Re-evaluation by your physician. - Problem is new. - Symptoms have improved. Signatures: Dispatcher [employer] EDJens Larson RN RN sg Anderson, Corey, MD MD cha Williams, Irene, RN RN iw Marinas, Patrick, POST DOCTORAL RESEARCHER POST DOCTORAL RESEARCHER pm1 Corrections: (The following items were deleted from the chart) 09/29 18:49 18:22 09/29/2018 18:22 Discharged to Home. Impression: Benign paroxysmal vertigo. iw Condition is Stable. Forms are Medication Reconciliation Form, Thank You Letter, Antibiotic Education, Prescription Opioid Use. Follow up: Emergency Department; When: As needed; Reason: Worsening of condition. Follow up: Private Physician; When: 2 - 3 days; Reason: Recheck today's complaints, Continuance of care, Re-evaluation by your physician. Problem is new. Symptoms have improved. pm1
--- NOTE | 2018-09-30 07:18 | EKG ---
Test Date: 2018-09-29 Test Time: 16:45:13 Green Chain Offbearer: FLORENTINO MEASUREMENT RESULTS: Intervals: Rate: 87 NC: 178 QRSD: 94 QT: 386 QTc: 464 [place]: P: 74 NC: 178 QRS: 55 T: 90 INTERPRETIVE STATEMENTS: Normal sinus rhythm Nonspecific T wave abnormality Prolonged QT Abnormal ECG Compared to ECG 04/25/2018 13:44:36 T-wave abnormality now present Prolonged QT interval now present Atrial premature complex(es) no longer present Aberrant conduction of supraventricular beat(s) no longer present Left ventricular hypertrophy no longer present Early repolarization no longer present Electronically Signed On 09-30-18 07:17:12 CLEANING STAFF SUPERVISOR by Kevin Sosa
== END 2018-09-29 18:49 | disposition home or self-care (01) ==
LOC: ER 16:24
DX: H81.10 Benign paroxysmal vertigo, unspecified ear (principal); I10 Essential (primary) hypertension; Z88.5 Allergy status to narcotic agent; Z88.6 Allergy status to analgesic agent
CPT/HCPCS: 36415; 70450; 71045; 80048; 80076; 83735; 83880; 84484; 85025; 85610; 93005; 99285

== ENCOUNTER 2018-12-13 19:25 | Emergency (ER) | payer OTHER ==
[2018-12-13] MEDS ORDERED: TETRACAINE HCL 0.5% 2ML OPTH ONE (20:21)
[2018-12-13] MEDS ORDERED: ONDANSETRON 4 MG/2 ML VIAL ONE ×2 (20:22→21:34)
[2018-12-13] MEDS ORDERED: FENTANYL CITR 100 MCG/2 ML ONE (20:39)
[2018-12-13] MEDS ORDERED: MANNITOL 25% 100 ML IV ONE (20:56)
--- NOTE | 2018-12-13 21:02 | ER ---
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 Patient was release home and this evening started complaining of pain and C/O vision with black dots. Transition of care: patient was not received from another setting of care. Mechanism of Injury: No Mechanism of Injury. The patient denies any loss of vision. Onset of symptoms is unknown. Risk Assessment: Do you want to hurt yourself or someone else? Patient reports no desire to harm self or others. Initial Sepsis Screen: Does the patient meet any 2 criteria? No. Patient's initial sepsis screen is negative. Does the patient have a suspected source of infection? No. Patient's initial sepsis screen is negative. Care prior to arrival: None. 19:49 Method Of Arrival: Wheelchair ao 19:49 Acuity: ERIC 2 ao Historical: - Allergies: 20:00 Codeine; ao 20:00 Hydrocodone-Acetaminophen; ao - Home Meds: 20:00 allopurinol 300 mg Oral tab 1 tab once daily [Active]; atorvastatin 80 mg Oral tab 1 ao tab once daily [Active]; spironolactone 25 mg Oral tab 1 tab 2 times per day [Active]; aspirin 81 mg Oral chew 1 tab once daily [Active]; potassium chloride 10 mEq Oral cpER 1 cap once daily [Active]; furosemide 20 mg Oral tab 1 tab 2 times per day [Active]; metoprolol tartrate 25 mg Oral tab 0.5 tab 2 times per day [Active]; Edarbyclor 40-12.5 mg oral tab 1 tab once daily [Active]; Lumigan 0.01 % ophthalmic drop [Active]; Duruzol [Active]; Combigan 0.2-0.5 % ophthalmic drop 1 drop every 12 hours [Active]; - PMHx: 20:00 Gout; Hyperlipidemia; Hypertension; ao - PSHx: 20:00 Heart stents; catarats; ao - Immunization history:: Adult Immunizations up to date. - Social history:: Smoking status: Patient/guardian denies using tobacco, Patient uses Patient/guardian denies using alcohol, street drugs, The patient lives with family. - Ebola Screening: : Patient negative for fever greater than or equal to 101.5 degrees Fahrenheit, and additional compatible Ebola Virus Disease symptoms Patient denies exposure to infectious person Patient denies travel to an Ebola-affected area in the 21 days before illness onset. - Family history:: not pertinent. - Hospitalizations: : No recent hospitalization is reported. Screenin:48 Abuse screen: Denies threats or abuse. Nutritional screening: No deficits noted. ea Tuberculosis screening: No symptoms or risk factors identified. Fall Risk None identified. Assessment: 19:51 General: Appears uncomfortable, Behavior is anxious, restless. Pain: Complains of pain ea in left eye Pain currently is 10 out of 10 on a pain scale. Neuro: Level of Consciousness is awake, alert, obeys commands, Oriented to person, place, time, situation. Cardiovascular: Patient's skin is warm and dry. Respiratory: Airway is patent Respiratory effort is even, unlabored, Respiratory pattern is regular, symmetrical. EENT: Eyes are tearing on outer aspect of conjuctiva of left eye, iris of left eye and inner aspect of conjunctiva of left eye. Derm: Skin is pink, warm \T\ dry. Musculoskeletal: Circulation, motion, and sensation intact. 20:30 Reassessment: Patient and/or family updated on plan of care and expected duration. Pain ea level reassessed. Pt complaining of pain, provider notified, medication order obtained, medication administered. Pt tolerated well. 21:40 Reassessment: Patient and/or family updated on plan of care and expected duration. Pain ea level reassessed. Pt complaining of pain, provider notified, medication order obtained, medication administered, pt tolerated well. 22:22 Reassessment: Patient and/or family updated on plan of care and expected duration. Pain ea level reassessed. Patient is alert, oriented x 3, equal unlabored respirations, skin warm/dry/pink. awaiting on EMS for transfer Patient states symptoms have improved. 22:32 Reassessment: Patient and/or family updated on plan of care and expected duration. Pain ea level reassessed. Patient is alert, oriented x 3, equal unlabored respirations, skin warm/dry/pink. [facility] at facility for transfer, report given to EMS. Pt taken via stretcher, tolerating well. Vital Signs: 19:47 BP 179 / 75; Pulse 72; Resp 20; Temp 97.2; Pulse Ox 100% on R/A; Weight 57.15 kg; ea Height 5 ft. 9 in. (175.26 cm); Pain 10/10; 20:45 BP 146 / 68; Pulse 75; Resp 18; Pulse Ox 100% ; ea 21:45 BP 160 / 90; Pulse 57; Resp 18; Pulse Ox 99% on R/A; ea 22:15 BP 139 / 50; Pulse 60; Resp 18; Pulse Ox 99% on R/A; ea 19:47 Body Mass Index 18.61 (57.15 kg, 175.26 cm) ea ED Course: 19:28 Patient arrived in ED. dl4 19:28 out of town, doctor is Private Physician. dl4 19:49 Juan Carlos Melgar RN is Primary Nurse. ao 19:49 Arm band placed on right wrist. Patient placed in an exam room, on a stretcher, on ea pulse oximetry. 19:52 Rush Still MD is Attending Physician. ma2 19:53 Triage completed. ao 19:53 Patient has correct armband on for positive identification. Bed in low position. Call ea light in reach. Side rails up X2. 22:34 No provider procedures requiring assistance completed. Patient transferred, IV remains ea in place. Administered Medications: 20:18 Drug: Zofran 4 mg Route: IVP; Site: right antecubital; ea 20:50 Follow up: Response: No adverse reaction ea 20:31 Drug: fentaNYL (PF) 25 mcg Route: IVP; Site: right antecubital; ea 21:00 Follow up: Response: No adverse reaction; Pain is decreased ea 20:59 CANCELLED (not recommended by opthalmogist dr. Nair): Pilocarpine Drops (2 %) 1 drops ma2 Ophthalmic once 21:00 Drug: Zofran 4 mg Route: IVP; Site: right antecubital; ao 21:30 Follow up: Response: No adverse reaction; Nausea is decreased ea 21:27 Drug: acetaZOLAMIDE 500 mg Route: IV; Rate: calculated rate; Site: right antecubital; ao 21:30 Drug: Mannitol 25% 0.5 g/kg Route: IV; Rate: per protocol; Site: right antecubital; ao 21:35 Drug: fentaNYL (PF) 25 mcg Route: IVP; Site: right antecubital; ao 22:00 Follow up: Response: No adverse reaction; Pain is decreased ea 21:40 Drug: Phenergan 12.5 mg Route: IVP; Site: right antecubital; ao 22:19 Follow up: Response: No adverse reaction; Pain is decreased ea 21:44 CANCELLED (Physician Discretion): Timolol 0.25 % 1 drops Ophthalmic once ao 22:19 Drug: fentaNYL (PF) 25 mcg Route: IVP; Site: right antecubital; ea 22:30 Follow up: Response: No adverse reaction; Pain is decreased ea Outcome: 21:01 ER care complete, transfer ordered by MD. roche 21:15 Transferred by ground EMS to [facility], Transfer form ea completed. 21:15 Condition: stable 21:15 Instructed on the need for transfer. 22:39 Patient left the ED. ea Signatures: Juan Carlos Melgar RN Treva Schultz RN RN Rush Mora MD MD ma2 Richard Mcmanus dl4 Corrections: (The following items were deleted from the chart) 12/14 05:08 02 22:50 BP 139 / 50; Pulse 60bpm; Resp 18bpm; Pulse Ox 99% RA; ea britt
--- NOTE | 2018-12-13 21:02 | EDPHYS ---
Physician Documentation [facility] Name: Jacob Dick Age: 68 yrs Sex: Male : 1950 Arrival Date: 12/13/2018 Time: 19:28 Bed 2 Private MD: out of town, doctor ED Physician Rush Still HPI: 12/13 20:18 This 68 yrs old Male presents to ER via Wheelchair with complaints of Eye ma2 Pain. 20:18 Onset: The symptoms/episode began/occurred suddenly, 1 day(s) ago. Duration: the ma2 symptoms are continuous. Associated signs and symptoms: Pertinent positives: left eye pain , Pertinent negatives: None. chills, ear ache, headache. Severity of symptoms: At their worst the symptoms were severe in the emergency department the symptoms are unchanged. The patient has not experienced similar symptoms in the past. here with sudden left eye pain x 1 day never had this before had cataract removal both eyes many yrs ago . Historical: - Allergies: 20:00 Codeine; ao 20:00 Hydrocodone-Acetaminophen; ao - Home Meds: 20:00 allopurinol 300 mg Oral tab 1 tab once daily [Active]; atorvastatin 80 mg Oral tab 1 ao tab once daily [Active]; spironolactone 25 mg Oral tab 1 tab 2 times per day [Active]; aspirin 81 mg Oral chew 1 tab once daily [Active]; potassium chloride 10 mEq Oral cpER 1 cap once daily [Active]; furosemide 20 mg Oral tab 1 tab 2 times per day [Active]; metoprolol tartrate 25 mg Oral tab 0.5 tab 2 times per day [Active]; Edarbyclor 40-12.5 mg oral tab 1 tab once daily [Active]; Lumigan 0.01 % ophthalmic drop [Active]; Duruzol [Active]; Combigan 0.2-0.5 % ophthalmic drop 1 drop every 12 hours [Active]; - PMHx: 20:00 Gout; Hyperlipidemia; Hypertension; ao - PSHx: 20:00 Heart stents; catarats; ao - Immunization history:: Adult Immunizations up to date. - Social history:: Smoking status: Patient/guardian denies using tobacco, Patient uses Patient/guardian denies using alcohol, street drugs, The patient lives with family. - Ebola Screening: : Patient negative for fever greater than or equal to 101.5 degrees Fahrenheit, and additional compatible Ebola Virus Disease symptoms Patient denies exposure to infectious person Patient denies travel to an Ebola-affected area in the 21 days before illness onset. - Family history:: not pertinent. - Hospitalizations: : No recent hospitalization is reported. ROS: 20:18 Constitutional: Negative for fever, chills, and weight loss. ma2 20:18 Eyes: Positive for pain, Negative for blurry vision, discharge, foreign body sensation, swelling, tearing. 20:18 All other systems are negative. Exam: 20:18 Visual Acuity: Visual acuity is within normal limits. ma2 20:18 Constitutional: This is a well developed, well nourished patient who is awake, alert, and in no acute distress. Head/Face: Normocephalic, atraumatic. 20:18 Neck: Trachea midline, no thyromegaly or masses palpated, and no cervical lymphadenopathy. Supple, full range of motion without nuchal rigidity, or vertebral point tenderness. No Meningismus. Chest/axilla: Normal chest wall appearance and motion. Nontender with no deformity. No lesions are appreciated. Cardiovascular: Regular rate and rhythm with a normal S1 and S2. No gallops, murmurs, or rubs. Normal PMI, no JVD. No pulse deficits. Respiratory: Lungs have equal breath sounds bilaterally, clear to auscultation and percussion. No rales, rhonchi or wheezes noted. No increased work of breathing, no retractions or nasal flaring. MS/ Extremity: Pulses equal, no cyanosis. Neurovascular intact. Full, normal range of motion. Neuro: Awake and alert, GCS 15, oriented to person, place, time, and situation. Cranial nerves II-XII grossly intact. Motor strength 5/5 in all extremities. Sensory grossly intact. Cerebellar exam normal. Normal gait. 20:18 Eyes: Pupils: dilated, in left eye, left pupil is approximately 5 mm(s), Extraocular movements: intact throughout, Conjunctiva: normal, Corneas: are normal, Intraocular pressure: right eye = 19mmHg, left eye = 35mmHg. Vital Signs: 19:47 BP 179 / 75; Pulse 72; Resp 20; Temp 97.2; Pulse Ox 100% on R/A; Weight 57.15 kg; ea Height 5 ft. 9 in. (175.26 cm); Pain 10/10; 20:45 BP 146 / 68; Pulse 75; Resp 18; Pulse Ox 100% ; ea 21:45 BP 160 / 90; Pulse 57; Resp 18; Pulse Ox 99% on R/A; ea 22:15 BP 139 / 50; Pulse 60; Resp 18; Pulse Ox 99% on R/A; ea 19:47 Body Mass Index 18.61 (57.15 kg, 175.26 cm) ea MDM: 19:52 Patient medically screened. ma2 20:18 Differential diagnosis: Acute iritis of Acute glaucoma in Data reviewed: vital signs, ma2 nurses notes. Counseling: I had a detailed discussion with the patient and/or guardian regarding: the historical points, exam findings, and any diagnostic results supporting the discharge/admit diagnosis, the presence of at least one elevated blood pressure reading (>120/80) during this emergency department visit, the need to transfer to another facility, for higher level of car as no ophthalmology available today . Response to treatment: the patient's symptoms have mildly improved after treatment. 21:00 ED course: accepted by Dr. Nair opthalmologist for er to er transfer to [facility]. ma2 ED course: higher level of care as no optha available today . Administered Medications: 20:18 Drug: Zofran 4 mg Route: IVP; Site: right antecubital; ea 20:50 Follow up: Response: No adverse reaction ea 20:31 Drug: fentaNYL (PF) 25 mcg Route: IVP; Site: right antecubital; ea 21:00 Follow up: Response: No adverse reaction; Pain is decreased ea 20:59 CANCELLED (not recommended by opthalmogist dr. Nair): Pilocarpine Drops (2 %) 1 drops ma2 Ophthalmic once 21:00 Drug: Zofran 4 mg Route: IVP; Site: right antecubital; ao 21:30 Follow up: Response: No adverse reaction; Nausea is decreased ea 21:27 Drug: acetaZOLAMIDE 500 mg Route: IV; Rate: calculated rate; Site: right antecubital; ao 21:30 Drug: Mannitol 25% 0.5 g/kg Route: IV; Rate: per protocol; Site: right antecubital; ao 21:35 Drug: fentaNYL (PF) 25 mcg Route: IVP; Site: right antecubital; ao 22:00 Follow up: Response: No adverse reaction; Pain is decreased ea 21:40 Drug: Phenergan 12.5 mg Route: IVP; Site: right antecubital; ao 22:19 Follow up: Response: No adverse reaction; Pain is decreased ea 21:44 CANCELLED (Physician Discretion): Timolol 0.25 % 1 drops Ophthalmic once ao 22:19 Drug: fentaNYL (PF) 25 mcg Route: IVP; Site: right antecubital; ea 22:30 Follow up: Response: No adverse reaction; Pain is decreased ea Disposition: 12/13/18 21:01 Transfer ordered to [facility]. 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 - Reason for transfer: Higher level of care. - Accepting physician is Korey. - Condition is Critical. - Problem is new. - Symptoms are unchanged. Signatures: Juan Carlos Melgar RN Treva Schultz RN RN ea Alzahri, Mohammad, MD MD [facility] Corrections: (The following items were deleted from the chart) 20:59 20:29 Pilocarpine Drops (2 %) 1 drops Ophthalmic once ordered. ma2 ma2 21:44 20:29 Timolol Drops 0.25 % 1 drops Ophthalmic once ordered. ma2 ao 22:39 21:01 12/13/2018 21:01 Transfer ordered to [facility]. Diagnosis is Glaucoma ea secondary to drugs, left eye. Reason for transfer: Higher level of care. Accepting physician is Korey. Condition is Critical. Problem is new. Symptoms are unchanged. ma2
[2018-12-13] MEDS ORDERED: ACETAZOLAMIDE 500 MG IV ONE (21:14)
[2018-12-13] MEDS ORDERED: PROMETHAZINE 25 MG/ML VIAL ONE (21:48)
== END 2018-12-13 22:39 | disposition short-term general hospital (02) ==
LOC: ER 19:25
DX: H40.6 Glaucoma secondary to drugs (principal); E78.5 Hyperlipidemia, unspecified; Z79.82 Long term (current) use of aspirin; Z88.5 Allergy status to narcotic agent; Z95.818 Presence of other cardiac implants and grafts
CPT/HCPCS: 96374; 96375; 99285; J1120; J2150; J2405 ×2; J2550; J3010

== ENCOUNTER 2021-07-30 18:54 | Inpatient (IN) | payer OTHER ==
[2021-07-30 19:07] LABS: Urine Blood 1+ (Negative); Urine Glucose Negative (Negative); Urine Protein 3+ (Negative)
[2021-07-30 19:27] LABS: Urine Blood 1+ (Negative); Urine Glucose Negative (Negative); Urine Protein 3+ (Negative)
[2021-07-30 19:36] LABS: Absolute Lymphocytes (CBC) 0.7 K/uL (0.7-4.9); Basophils % 1.3 % (0-1.3); Hematocrit 29.9 % (39.6-49.0); Lymphocytes % 20.8 % (15.3-44.8); MPV 8.5 fL (7.6-11.3); RBC Red Blood Cell Count 3.32 M/uL (4.33-5.43)
[2021-07-30 19:50] LABS: Urine Bacteria <20 /HPF (NONE SEEN); Urine Mucus 1+ /HPF (NONE SEEN)
[2021-07-30] MEDS ORDERED: NA CHLORIDE 0.9% 1,000 ML ONE (19:54)
[2021-07-30 19:57] LABS: Albumin 1.4 g/dL (3.4-5.0); Bilirubin Direct 0.2 mg/dL (0-0.2); Bilirubin Total 0.4 mg/dL (0.2-1.0); Potassium 5.5 mmol/L (3.5-5.1); Protein, Total 5.8 g/dL (6.4-8.2); Troponin (Emerg Dept Use Only) 0.05 ng/mL (0.0-0.045)
--- NOTE | 2021-07-30 20:03 | RAD REPORT ---
EXAM DESCRIPTION: Janelle Single View07/30/2021 7:54 pm CLINICAL HISTORY: Shortness of breath COMPARISON: 2018 FINDINGS: The lungs appear clear of acute infiltrate. The heart is normal size. Postsurgical change s involve the chest. Pacemaker lead in place IMPRESSION: No acute abnormalities displayed
[2021-07-30 20:13] LABS: Protime INR 0.91
[2021-07-30 20:19] LABS: Blood Morphology Comment NOT SEEN (NOT SEEN); Platelet Estimate DECR; White Blood Cell Scan OK (OK)
--- NOTE | 2021-07-30 20:19 | EDPHYS ---
Physician Documentation [facility] Name: Jacob Dick Age: 70 yrs Sex: Male : 1950 Arrival Date: 07/30/2021 Time: 18:40 Bed 6 Private MD: ED Physician Darrion Joseph HPI: 07/30 20:07 This 70 yrs old Male presents to ER via EMS with complaints of Altered Mental jr8 Status. 20:07 Onset: The symptoms/episode began/occurred gradually. Possible causes: unknown. jr8 Associated signs and symptoms: The patient has no apparent associated signs or symptoms. Current symptoms: In the emergency department the patient's symptoms are unchanged from the initial presentation. Patient's baseline: Neuro: alert and fully oriented, Motor: no deficits, Ambulation: walks without assistance, Speech: normal. The patient has experienced a previous episode. The patient has been recently seen by a physician:. Patient was brought to the emergency room after sister of patient called EMS for altered mentation. Patient currently alert and oriented to person place time and event but cannot recall month or year. Patient stated that he has not been eating as well lately and had recently got out of the [employer] system for similar episode but could not tell me why. Patient currently denies pain, shortness of breath, nausea, vomiting, diarrhea, fevers, chills. Family not present at this time.. Historical: - Allergies: 19:23 Codeine; tw5 19:23 Hydrocodone-Acetaminophen; tw5 - PMHx: 19:23 Gout; Hyperlipidemia; Hypertension; tw5 - Social history:: Smoking status: unknown. ROS: 20:07 Eyes: Negative for injury, pain, redness, and discharge, ENT: Negative for injury, jr8 pain, and discharge, Neck: Negative for injury, pain, and swelling, Cardiovascular: Negative for chest pain, palpitations, and edema, Respiratory: Negative for shortness of breath, cough, wheezing, and pleuritic chest pain, Abdomen/GI: Negative for abdominal pain, nausea, vomiting, diarrhea, and constipation. Positive for decreased appetite Back: Negative for injury and pain, MS/Extremity: Negative for injury and deformity, Skin: Negative for injury, rash, and discoloration. 20:07 Neuro: Positive for altered mental status. Exam: 20:07 Eyes: Pupils equal round and reactive to light, extra-ocular motions intact. Lids and jr8 lashes normal. Conjunctiva and sclera are non-icteric and not injected. Cornea within normal limits. Periorbital areas with no swelling, redness, or edema. ENT: Nares patent. No nasal discharge, no septal abnormalities noted. Tympanic membranes are normal and external auditory canals are clear. Oropharynx with no redness, swelling, or masses, exudates, or evidence of obstruction, uvula midline. Mucous membranes moist. Neck: Trachea midline, no thyromegaly or masses palpated, and no cervical lymphadenopathy. Supple, full range of motion without nuchal rigidity, or vertebral point tenderness. No Meningismus. Cardiovascular: Regular rate and rhythm with a normal S1 and S2. No gallops, murmurs, or rubs. Normal PMI, no JVD. No pulse deficits. Respiratory: Lungs have equal breath sounds bilaterally, clear to auscultation and percussion. No rales, rhonchi or wheezes noted. No increased work of breathing, no retractions or nasal flaring. Abdomen/GI: Soft, non-tender, with normal bowel sounds. No distension or tympany. No guarding or rebound. No evidence of tenderness throughout. MS/ Extremity: Pulses equal, no cyanosis. Neurovascular intact. Full, normal range of motion. 20:07 : Uncircumcised male. Ulcerated lesions noted to the scrotum and perineal region with erythema and tenderness to palpation. Moderate amount of skin breakdown noted to those areas as well. Patient had moderate amount of feces around these areas.. 20:07 Skin: Patient has scabbing noted to bilateral lower extremities without any erythema or discharge.. 20:07 Neuro: Orientation: to person, place, time, situation, Mentation: able to follow commands, Memory: immediate memory is intact, remote memory is impaired, recent memory is impaired, Cranial nerves: CN I not tested, CN II- XII are normal as tested, extraocular movements are intact, Facial palsy and sensory deficits are absent. Speech is clear and appropriate. Tongue strength is normal, Cerebellar function: normal finger to nose testing, Motor: moves all fours, Sensation: no obvious gross deficits, seizure activity, is not displayed by the patient, Abnormal movements: there are no abnormal movements. Vital Signs: 19:20 BP 155 / 96; Pulse 79; Resp 18; Temp 98.4(core via manning); Pulse Ox 100% on R/A; tw5 19:26 BP 155 / 96; Pulse 75; Resp 18; Temp 98.5; Pulse Ox 99% on R/A; tw5 20:00 BP 146 / 79; Pulse 105; Resp 19; Pulse Ox 99% on R/A; jb4 21:00 BP 148 / 86; Pulse 104; Resp 22; Pulse Ox 99% on R/A; jb4 22:30 BP 142 / 95; Pulse 114; Resp 21; Pulse Ox 99% on R/A; jb4 23:42 BP 115 / 60; Pulse 113; Resp 20; Temp 98.9(C); Pulse Ox 97% ; jb4 19:20 unable to assess pain tw5 MDM: 18:56 Patient medically screened. jr 20:19 Data reviewed: vital signs, nurses notes, lab test result(s), EKG, radiologic studies, [facility] CT scan, plain films. Data interpreted: Pulse oximetry: on room air is 99 %. Interpretation: normal. Counseling: I had a detailed discussion with the patient and/or guardian regarding: the historical points, exam findings, and any diagnostic results supporting the discharge/admit diagnosis, lab results, radiology results, the need for further work-up and treatment in the hospital. 07/30 19:07 Order name: Urine Dipstick-Ancillary; Complete Time: 19:28 [facility] 07/30 19:13 Order name: Basic Metabolic Panel [facility] 07/30 19:13 Order name: Blood Culture Adult (2) [facility] 07/30 19:13 Order name: CBC with Diff [facility] 07/30 19:13 Order name: CPK; Complete Time: 20:13 [facility] 07/30 19:13 Order name: LFT's; Complete Time: 20:13 [facility] 07/30 19:13 Order name: Lactate; Complete Time: 20:13 [facility] 07/30 19:13 Order name: Lipase; Complete Time: 20:13 [facility] 07/30 19:13 Order name: Procalcitonin; Complete Time: 20:13 [facility] 07/30 19:13 Order name: Protime (+inr); Complete Time: 20:16 [facility] 07/30 19:13 Order name: Ptt, Activated; Complete Time: 20:16 [facility] 07/30 19:13 Order name: Troponin (emerg Dept Use Only); Complete Time: 20:13 [facility] 07/30 19:13 Order name: Urine Culture [facility] 07/30 19:13 Order name: Urine Microscopic Only; Complete Time: 20:13 [facility] 07/30 19:13 Order name: Chest Single View XRAY; Complete Time: 20:13 [facility] 07/30 19:13 Order name: Magnesium; Complete Time: 20:13 [facility] 07/30 19:13 Order name: Basic Metabolic Panel; Complete Time: 20:13 [facility] 07/30 19:13 Order name: Blood Culture [facility] 07/30 19:13 Order name: CBC with Automated Diff [facility] 07/30 19:27 Order name: Urine Dipstick-Ancillary; Complete Time: 19:28 [facility] 07/30 20:16 Order name: CT Head Brain wo Cont; Complete Time: 21:04 [facility] 07/30 20:19 Order name: CBC Smear Scan [facility] 07/30 20:20 Order name: ETOH Level [facility] 07/30 20:20 Order name: US Abdomen Limited [facility] 07/30 20:21 Order name: Alcohol Serum/Plasma; Complete Time: 21:00 [facility] 07/30 20:23 Order name: COVID-19 : Document "Date of Symptom Onset" if Symptomatic. tt3 07/30 21:32 Order name: US; Complete Time: 21:38 [facility] 07/30 21:35 Order name: SARS-COV-2 RT PCR; Complete Time: 21:38 [facility] 07/30 19:13 Order name: Accucheck; Complete Time: 19:27 [facility] 07/30 19:13 Order name: Cardiac monitoring; Complete Time: 19:26 [facility] 07/30 19:13 Order name: EKG - Nurse/Tech; Complete Time: 19:26 [facility] 07/30 19:13 Order name: IV Saline Lock - Large Bore; Complete Time: 19:26 [facility] 07/30 19:13 Order name: Labs collected and sent; Complete Time: 19:26 [facility] 07/30 19:13 Order name: O2 Per Protocol; Complete Time: 19:26 [facility] 07/30 19:13 Order name: O2 Sat Monitoring; Complete Time: 19: [facility] 07/30 19:13 Order name: Urine Dipstick-Ancillary (obtain specimen); Complete Time: 19:26 jr8 Administered Medications: 19:40 Drug: NS 0.9% 1000 ml Route: IV; Rate: 1000 ml; Site: right wrist; jb4 20:29 Follow up: IV Status: Completed infusion; IV Intake: 1000ml jb4 21:03 Drug: Rocephin (cefTRIAXone) 1 grams Route: IV; Rate: calculated rate; Site: left wrist;jb4 21:06 Follow up: Response: No adverse reaction; IV Status: Completed infusion jb4 21:14 Drug: Calcium Gluconate 1 grams {Note: 1g in 100ml not available. Provider okayed jb4 medication to be ran in 1g in 50ml.} Route: IVPB; Infused Over: 60 mins; Site: left wrist; 22:14 Follow up: Response: No adverse reaction; IV Status: Completed infusion; IV Intake: 14zbmg4 21:15 Drug: D5-1/2 NS 1000 ml Route: IV; Rate: 100 ml/hr; Site: right wrist; jb4 23:44 Follow up: Response: No adverse reaction; IV Status: Infusion continued upon admission jb4 21:15 Drug: Albuterol 2.5 mg Route: Inhalation; jb4 21:40 Drug: Albuterol 2.5 mg Route: Inhalation; jb4 22:22 Drug: Albuterol 2.5 mg Route: Inhalation; jb4 23:01 Follow up: Response: No adverse reaction jb4 22:28 Drug: Kayexalate (polystyrene) 30 grams Route: PO; jb4 23:02 Follow up: Response: No adverse reaction jb4 23:00 Drug: Ativan (LORazepam) 0.5 mg Route: IVP; Site: left wrist; jb4 23:44 Follow up: Response: No adverse reaction; Marked relief of symptoms jb4 Disposition Summary: 07/30/21 20:19 Hospitalization Ordered Hospitalization Status: Inpatient Admission jr8 Provider: Robin Lyon Location: Telemetry/[facility]Sur (Inpatient) [facility] Condition: Stable jr8 Problem: new jr8 Symptoms: are unchanged jr8 Bed/Room Type: Standard [facility] Room Assignment: 430(07/30/21 23:01) mw Diagnosis - Acute kidney failure, unspecified jr8 - Hyperkalemia jr8 - Dehydration jr8 - Adult failure to thrive jr8 - Altered mental status, unspecified jr8 - Hypoglycemia, unspecified jr8 Forms: - Medication Reconciliation Form jr8 - SBAR form jr8 Addendum: 08/01/2021 10:56 Co-signature as Attending Physician, Darrion Joseph MD I agree with the assessment and c trejo plan of care. Signatures: Dispatcher [employer] EDSD Oneida Carrasco RN RN mw Anderson, Corey, MD MD cha Roszak, Josh, PA PA jr8 Corbin Mckeon, OPERATING ROOM ORDERLY-C OPERATING ROOM ORDERLY-Cla1 Sunny Rendon RN RN jb4 Camila Esquivel tw5 Corrections: (The following items were deleted from the chart) 07/30 20:37 20:23 CORONAVIRUS ordered. EDSD EDMS 23:01 20:19 jrAmira mclain
--- NOTE | 2021-07-30 20:19 | ER ---
Nurse's Notes [facility] Name: Jacob Dick Age: 70 yrs Sex: Male : 1950 Arrival Date: 07/30/2021 Time: 18:40 Bed 6 Private MD: Diagnosis: Acute kidney failure, unspecified;Hyperkalemia;Dehydration;Adult failure to thrive;Altered mental status, unspecified;Hypoglycemia, unspecified Presentation: 07/30 18:41 Chief complaint: EMS states: Stated that the sister in law did the majority of the tw5 talking, she stated that he has been acting agitated and acting weird. The patients main complain is his left leg hurting all the way up, and he has a "boil in his perineal area.". Coronavirus screen: At this time, unable to obtain information related to travel outside the [place] Ebola Screen: Patient denies travel to an Ebola-affected area in the 21 days before illness onset. 18:41 Method Of Arrival: EMS: [facility] tw5 19:20 Initial Sepsis Screen: Does the patient meet any 2 criteria? Altered Mental Status. No. tw5 Patient's initial sepsis screen is negative. Does the patient have a suspected source of infection? No. Patient's initial sepsis screen is negative. Initial Sepsis Screen: Does the patient meet any 2 criteria?. Risk Assessment:. Risk Assessment: Do you want to hurt yourself or someone else? Unable to obtain. Onset of symptoms is unknown. 19:20 Acuity: ERIC 3 tw5 Triage Assessment: 19:23 General: Appears distressed, uncomfortable, ill, slender, unkempt, malnourished, tw5 Behavior is restless. Pain: Noted to be agitated, grimacing, moaning, resistant to movement. Neuro: Level of Consciousness is confused. Historical: - Allergies: 19:23 Codeine; tw5 19:23 Hydrocodone-Acetaminophen; tw5 - PMHx: 19:23 Gout; Hyperlipidemia; Hypertension; tw5 - Social history:: Smoking status: unknown. Screenin:28 Abuse screen: unable to assess. Nutritional screening: unknown. Tuberculosis screening: tw5 No symptoms or risk factors identified. Fall Risk Secondary diagnosis (15 points) impaired mobility, IV access (20 points). Gait- Impaired (20 pts.). Assessment: 19:00 Reassessment: Patient appears in no apparent distress at this time. Patient and/or jb4 family updated on plan of care and expected duration. Pain level reassessed. Patient is alert, oriented x 3, equal unlabored respirations, skin warm/dry/pink. 20:00 Reassessment: Patient appears in no apparent distress at this time. Patient and/or jb4 family updated on plan of care and expected duration. Pain level reassessed. Patient is alert, oriented x 3, equal unlabored respirations, skin warm/dry/pink. 21:00 Reassessment: Patient appears in no apparent distress at this time. Patient and/or jb4 family updated on plan of care and expected duration. Pain level reassessed. Patient is alert, oriented x 3, equal unlabored respirations, skin warm/dry/pink. 21:51 Reassessment: Patient appears in no apparent distress at this time. Patient and/or jb4 family updated on plan of care and expected duration. Pain level reassessed. Patient is alert, oriented x 3, equal unlabored respirations, skin warm/dry/pink. 23:05 Reassessment: Patient appears in no apparent distress at this time. Patient and/or jb4 family updated on plan of care and expected duration. Pain level reassessed. Patient is alert, oriented x 3, equal unlabored respirations, skin warm/dry/pink. 23:42 Reassessment: Patient appears in no apparent distress at this time. Patient and/or jb4 family updated on plan of care and expected duration. Pain level reassessed. Patient is alert, oriented x 3, equal unlabored respirations, skin warm/dry/pink. Vital Signs: 19:20 BP 155 / 96; Pulse 79; Resp 18; Temp 98.4(core via manning); Pulse Ox 100% on R/A; tw5 19:26 BP 155 / 96; Pulse 75; Resp 18; Temp 98.5; Pulse Ox 99% on R/A; tw5 20:00 BP 146 / 79; Pulse 105; Resp 19; Pulse Ox 99% on R/A; jb4 21:00 BP 148 / 86; Pulse 104; Resp 22; Pulse Ox 99% on R/A; jb4 22:30 BP 142 / 95; Pulse 114; Resp 21; Pulse Ox 99% on R/A; jb4 23:42 BP 115 / 60; Pulse 113; Resp 20; Temp 98.9(C); Pulse Ox 97% ; jb4 19:20 unable to assess pain tw5 ED Course: 18:40 Patient arrived in ED. tw5 18:56 Trace Lobo PA is PHCP. jr8 18:56 Darrion Joseph MD is Attending Physician. jr8 19:00 First set of blood cultures drawn by me. tw5 19:15 Second set of blood cultures drawn by ED staff. tw5 19:23 Triage completed. tw5 19:25 Sunny Rendon, RN is Primary Nurse. jb4 19:27 Placed in gown. Bed in low position. Call light in reach. Side rails up X 1. Cardiac tw5 monitor on. Pulse ox on. NIBP on. Noise minimized. 19:54 Chest Single View XRAY In Process Unspecified. EDMS 20:17 Robin Lyon DO is Hospitalizing Provider. jr8 20:55 CT Head Brain wo Cont In Process Unspecified. EDMS 23:42 No provider procedures requiring assistance completed. Patient admitted, IV remains in jb4 place. Administered Medications: 19:40 Drug: NS 0.9% 1000 ml Route: IV; Rate: 1000 ml; Site: right wrist; jb4 20:29 Follow up: IV Status: Completed infusion; IV Intake: 1000ml jb4 21:03 Drug: Rocephin (cefTRIAXone) 1 grams Route: IV; Rate: calculated rate; Site: left wrist;jb4 21:06 Follow up: Response: No adverse reaction; IV Status: Completed infusion jb4 21:14 Drug: Calcium Gluconate 1 grams {Note: 1g in 100ml not available. Provider okayed [facility] medication to be ran in 1g in 50ml.} Route: IVPB; Infused Over: 60 mins; Site: left wrist; 22:14 Follow up: Response: No adverse reaction; IV Status: Completed infusion; IV Intake: 30ligl6 21:15 Drug: D5-1/2 NS 1000 ml Route: IV; Rate: 100 ml/hr; Site: right wrist; jb4 23:44 Follow up: Response: No adverse reaction; IV Status: Infusion continued upon admission jb4 21:15 Drug: Albuterol 2.5 mg Route: Inhalation; jb4 21:40 Drug: Albuterol 2.5 mg Route: Inhalation; jb4 22:22 Drug: Albuterol 2.5 mg Route: Inhalation; jb4 23:01 Follow up: Response: No adverse reaction jb4 22:28 Drug: Kayexalate (polystyrene) 30 grams Route: PO; jb4 23:02 Follow up: Response: No adverse reaction jb4 23:00 Drug: Ativan (LORazepam) 0.5 mg Route: IVP; Site: left wrist; jb4 23:44 Follow up: Response: No adverse reaction; Marked relief of symptoms jb4 Intake: 20:29 IV: 1000ml; Total: 1000ml. jb4 22:14 IV: 50ml; Total: 1050ml. jb4 Outcome: 20:19 Decision to Hospitalize by Provider. jr8 23:42 Admitted to Tele accompanied by tech, via wheelchair, room 430. jb4 23:42 Condition: stable 23:42 Discharge instructions given to patient, Instructed on the need for admit, Demonstrated understanding of instructions. 23:44 Patient left the ED. jb4 Signatures: Dispatcher [employer] EDMS Trace Lobo PA PA jr8 Sunny Rendon, RN RN jb4 Camila Esquivel tw5 Corrections: (The following items were deleted from the chart) 23:43 23:42 BP 115 / 60; Pulse 113bpm; Resp 20bpm; Pulse Ox 97%; jb4 jb4
[2021-07-30] MEDS ORDERED: SOD POLYSTYREN SUL 15 GM/60 ML UCUP ONE (21:01)
[2021-07-30] MEDS ORDERED: CEFTRIAXONE 1000 MG/VIAL ONE (21:01)
[2021-07-30] MEDS ORDERED: ALBUTEROL 2.5 MG/3 ML NEB SOL ONE (21:01)
[2021-07-30] MEDS ORDERED: CALCIUM GLUCONATE 1 GM IVPB 1 GM/50 ML BAG IV ONE (21:02)
[2021-07-30] MEDS ORDERED: D5 0.45 NS 1,000 ML IV ONE (21:02)
--- NOTE | 2021-07-30 21:03 | RAD REPORT ---
EXAM DESCRIPTION: CT - Head Brain Wo Cont - 07/30/2021 8:55 pm CLINICAL HISTORY: Alteration of awareness/confusion COMPARISON: 2018 TECHNIQUE: Computed axial tomography of the head was obtained. IV contrast was not requested. All CT scans are performed using dose optimization technique as appropriate and may include automated exposure control or mA/KV adjustment according to patient size. FINDINGS: An intracranial bleed is not seen . The ventricles are normal in caliber. No extra-axial fluid collection is noted. Mild cerebral atrophy Fluid within the sinuses/ mastoids is not seen. IMPRESSION: No acute intracranial abnormality is seen. If patient's symptoms persist MRI of the bra in would be recommended.
--- NOTE | 2021-07-30 21:32 | RAD REPORT ---
EXAM DESCRIPTION: US - Abdomen Exam Limited - 07/30/2021 9:25 pm CLINICAL HISTORY: Abdominal pain. COMPARISON: None. FINDINGS: The gallbladder wall is not thickened. Multiple gallstones The biliary tree is normal caliber. IMPRESSION: Cholelithiasis
--- NOTE | 2021-07-30 21:41 | P.HP ---
Certification for Inpatient Patient admitted to: Inpatient With expected LOS: >2 Midnights Patient will require the following post-hospital care: None Practitioner: I am a practitioner with admitting privileges, knowledge of patient current condition, hospital course, and medical plan of care. Services: Services provided to patient in accordance with Admission requirements found in Title 42 Section 412.3 of the Code of Federal Regulations Patient History Date of Service: 07/30/21 Primary Care Provider: Dr. Lopez Reason for admission: AMS History of Present Illness: 70-year-old male with history of CAD, hypertension, gout, urinary retention presents emergency department for altered mental status, generalized weakness. Patient lives with his [id number] reported that patient has been more confused than normal over the course of last few days. Patient was evaluated in the emergency department labs were significant for white blood cell count 3.5 red blood cell 3.3 hemoglobin 9.9 hematocrit 29.9 RDW 15.8 platelets 67 sodium 135 potassium 5.5 BUN 65 creatinine 1.68 GFR 41 glucose 69 calcium 7.9 albumin 1.4 procalcitonin 0.22 troponin 0 0.05. AST [address] head negative for acute findings abdominal ultrasound pending, patient given Kayexalate and calcium gluconate in the emergency department for hyperkalemia. ED provider wishes to admit for further evaluation and management. Patient also admits to self catheterizing at home for urinary retention for the past few weeks, patient is poor historian, oriented x2-3, no family available for review at this time. Allergies codeine Allergy (Verified 04/25/18 15:25) Hives Hydrocodone-Acetaminophe Allergy (Uncoded 04/25/18 17:30) Unknown Home Medications: Acetaminophen [Acetaminophen Extra Strength] 500 mg PO Q6HR PRN 04/25/18 Atorvastatin Calcium [Lipitor] 80 mg PO BEDTIME 04/25/18 Clopidogrel Bisulfate [Plavix*] 75 mg PO DAILY 04/25/18 Furosemide [Lasix*] 20 mg PO BIDL 04/25/18 Isosorbide Mononitrate [Isosorbide Mononitrate ER] 60 mg PO DAILY 04/25/18 Metoprolol Tartrate [Lopressor*] 12.5 mg PO BID 04/25/18 Nitroglycerin 1 tab SL PRN PRN 04/25/18 Omeprazole Magnesium [Prilosec Otc] 20 mg PO DAILY 04/25/18 allopurinoL [Zyloprim*] 300 mg PO DAILY 04/25/18 lisinopriL [Prinivil*] 5 mg PO DAILY 04/25/18 Aspirin [Aspirin EC 81 MG] 81 mg PO DAILY #30 tablet. 04/30/18 Citalopram [Celexa*] 20 mg PO DAILY #60 tablet 04/30/18 Potassium Chloride 10 meq PO DAILY #30 tablet.er 04/30/18 - Past Medical/Surgical History Diabetic: Yes -: CAD S/P CABG/ Pm/defib -: HTN -: GOUT -: CKD 3 -: Angioplasty with 6 stents placement -: 5 heart stents -: PM/Defib Psychosocial/ Personal History: Lives at home with STEFANIE and other family - Family History Mother -: Heart disease, Cancer Brother -: Heart disease, Cancer - Social History Smoking Status: Current every day smoker Counseled patient to stop smoking for: less than 10 minutes Smoking therapy provided: No Alcohol use: No CD- Drugs: No Caffeine use: Yes Review of Systems 10-point ROS is otherwise unremarkable General: Weakness, Malaise Neurological: Confusion, As per HPI Physical Examination - Physical Exam General: Alert, In no apparent distress, Oriented x2, Disheveled, Other (ill, pale) HEENT: Atraumatic, PERRLA, Other (MM dry), EOMI, Sclerae nonicteric Neck: Supple, 2+ carotid pulse no bruit, No LAD, Without JVD or thyroid abnormality Respiratory: Clear to auscultation bilaterally, Normal air movement Cardiovascular: Regular rate/rhythm, Normal S1 S2 Capillary refill: <2 Seconds Gastrointestinal: Normal bowel sounds, No tenderness Musculoskeletal: No tenderness Integumentary: No rashes Neurological: Normal speech, Normal strength at 5/5 x4 extr, Normal tone, Normal affect - Studies Laboratory Data (last 24 hrs) 07/30/21 19:20: PT 10.4, INR 0.91, APTT 31.3 07/30/21 19:20: WBC 3.50 L, Hgb 9.9 L, Hct 29.9 L, Plt Count 67 L 07/30/21 19:20: Sodium 135 L, Potassium 5.5 H, BUN 65 H, Creatinine 1.68 H, Glucose 69 L, Magnesium 2.0, Total Bilirubin 0.4, AST 116 H, ALT 46, Alkaline Phosphatase 165 H, Lipase 398 H Assessment and Plan - Plan Assessment: Metabolic encephalopathy possibly related to uremia secondary to acute on chronic CKD 3 with hyperkalemia Pancytopenia Urinary retention Elevated troponin Hypoglycemia CAD status post CABG/pacemaker/defibrillator Hypertension Gout Plan: Metabolic encephalopathy possibly related to uremia secondary to acute on chronic CKD 3 with hyperkalemia: Patient very weak, slightly confused at this time at baseline renal function but with hyperkalemia. Patient given Kayexalate/calcium gluconate in the emergency department will continue with IV fluids D5 half NS given hypoglycemia. Nephrology consult in place. Let patient work with physical therapy as he does appear weak as well. Patient also noted to have some excoriation around his rectum, wound healing consulted, Azar catheter in place given urinary retention. Patient on Rocephin/vancomycin as well for coverage for possible cellulitis of the perineal area. Pancytopenia: Reticulocyte count, slides for pathology review ordered in addition to VARSHA studies. Urinary retention: Azar catheter placed in the emergency department, patient reports that he has been self catheterizing over the course last few weeks at home, patient cannot tell me for what reason he has been having to do this. Suspect BPH. Elevated troponin: Trend troponin, likely decreased renal clearance. Consult cardiology as necessary. Patient denies any chest pain. Hypoglycemia: Continue with D5 half NS. CAD status post CABG/pacemaker/defibrillator: Appears stable this time, will continue to monitor on telemetry, trend troponin. Hypertension: Obtain continue home medication. Gout: Obtain and continue medication. DVT PPX: SCDs thrombocytopenia. Code status: Full code Discharge Plan: Home Plan to discharge in: Greater than 2 days - Advance Directives Does patient have a Living Will: No Does patient have a Durable POA for Healthcare: No - Code Status/Comfort Care Code Status Assessed: Yes (Full code) Critical Care: No Time Spent Managing Pts Care (In Minutes): 55
[2021-07-30] MEDS ORDERED: LORazepam 2 MG/ML VIAL ONE (23:20)
[2021-07-31] MEDS ORDERED: ONDANSETRON 4 MG/2 ML VIAL IV PRN (00:03)
[2021-07-31] MEDS: D5 0.45 NS 1,000 ML IV SCH ×3 (01:09→17:49)
[2021-07-31] MEDS ORDERED: VANCOMYCIN 1 GM/VIAL ONE (01:22)
[2021-07-31] MEDS ORDERED: NA CHLORIDE 0.9% 250 ML ONE (01:22)
--- NOTE | 2021-07-31 06:27 | P.PN ---
Subjective Date of Service: 07/31/21 Primary Care Provider: Dr. Lopez Chief Complaint: AMS Subjective: Other (Patient stable. He appears malnourished.) Physical Examination - Vital Signs Temperature: 97.7 F Blood Pressure: 152/73 Pulse: 108 Respirations: 18 Pulse Ox (%): 95 - Studies Laboratory Data (last 24 hrs) 07/30/21 19:20: PT 10.4, INR 0.91, APTT 31.3 07/30/21 19:20: WBC 3.50 L, Hgb 9.9 L, Hct 29.9 L, Plt Count 67 L 07/30/21 19:20: Sodium 135 L, Potassium 5.5 H, BUN 65 H, Creatinine 1.68 H, Glucose 69 L, Magnesium 2.0, Total Bilirubin 0.4, AST 116 H, ALT 46, Alkaline Phosphatase 165 H, Lipase 398 H Assessment & Plan Discharge Plan: Home Plan to discharge in: Greater than 2 days Physician Review Additional Text: COVID: negative CT Head: COMPARISON: 2018 TECHNIQUE: Computed axial tomography of the head was obtained. IV contrast was not requested. All CT scans are performed using dose optimization technique as appropriate and may include automated exposure control or mA/KV adjustment according to patient size. FINDINGS: An intracranial bleed is not seen . The ventricles are normal in caliber. No extra-axial fluid collection is noted. Mild cerebral atrophy Fluid within the sinuses/ mastoids is not seen. IMPRESSION: No acute intracranial abnormality is seen ABUS: COMPARISON: None. FINDINGS: The gallbladder wall is not thickened. Multiple gallstones The biliary tree is normal caliber. IMPRESSION: Cholelithiasis CXR: COMPARISON: 2018 FINDINGS: The lungs appear clear of acute infiltrate. The heart is normal size. Postsurgical changes involve the chest. Pacemaker lead in place IMPRESSION: No acute abnormalities displayed Physical exam: General: Alert, In no apparent distress, Oriented x2, Disheveled, Other (ill, pale) HEENT: Atraumatic, PERRLA, Other (MM dry), EOMI, Sclerae nonicteric Neck: Supple, 2+ carotid pulse no bruit, No LAD, Without JVD or thyroid abnormality Respiratory: Clear to auscultation bilaterally, Normal air movement Cardiovascular: Regular rate/rhythm, Normal S1 S2 Capillary refill: <2 Seconds Gastrointestinal: Normal bowel sounds, No tenderness Musculoskeletal: No tenderness Integumentary: No rashes Neurological: Normal speech, Normal strength at 5/5 x4 extr, Normal tone, Normal affect Impression: Metabolic encephalopathy possibly related to uremia secondary to acute on chronic CKD 3 with hyperkalemia Pancytopenia Urinary retention Elevated troponin Hypoglycemia CAD status post CABG/pacemaker/defibrillator Hypertension Gout GERD Hyperlipidemia Plan: Metabolic encephalopathy possibly related to uremia secondary to acute on chronic CKD 3 with hyperkalemia: Continue with IV fluids. Will monitor closely. Patient given treatment for hyperkalemia in the emergency room. Continue IV fluids at this time. Will monitor closely. Patient on IV antibiotic therapy to cover for possible cellulitis of the perineal area. Will monitor closely. Will need to obtain more information from family. Await further recommendations from nephrology. Dietary consulted to address daily needs. Continue to hold Lasix and losartan. Pancytopenia: Continue to monitor and evaluate.. Urinary retention: Azar catheter in place. Will monitor closely. Urine cultures pending.. Elevated troponin: Monitor lab closely. Hypoglycemia: Continue with IV fluids. CAD status post CABG/pacemaker/defibrillator: Appears stable this time, will continue to monitor on telemetry, trend troponin. Hold aspirin and Plavix due to pancytopenia. Hypertension: Restart carvedilol. Hold olmesartan Gout: Restart allopurinol GERD: Continue Pepcid Hyperlipidemia: Continue Lipitor DVT PPX: SCDs thrombocytopenia. Code status: Full code Discharge Plan: Home at discharge Time Spent Managing Pts Care (In Minutes): 55
[2021-07-31 06:28] LABS: Absolute Lymphocytes (CBC) 0.9 K/uL (0.7-4.9); Hematocrit 22.7 % (39.6-49.0); Lymphocytes % 33.7 % (15.3-44.8); RBC Red Blood Cell Count 2.53 M/uL (4.33-5.43)
[2021-07-31 07:15] LABS: Albumin 1.1 g/dL (3.4-5.0); Bilirubin Total 0.2 mg/dL (0.2-1.0); Ferritin 2059.9 ng/mL (26-388); Magnesium 1.8 mg/dL (1.8-2.4); Potassium 4.6 mmol/L (3.5-5.1); Protein, Total 4.3 g/dL (6.4-8.2); Thyroid Stimulating Hormone 3.41 uIU/mL (0.360-3.740)
[2021-07-31] MEDS: CEFTRIAXONE 1 GM/NS 50 ML 1 GM/50 ML BAG IV SCH (08:47)
--- NOTE | 2021-07-31 09:54 | P.CNS ---
Date of Consult: 07/31/21 Reason for Consult: VISHAL Requesting Physician: Robin Lyon Primary Care Provider: Dr. Lopez Chief Complaint: AMS History of Present Illness: 70-year-old male with history of CAD, hypertension, gout, urinary retention presents emergency department for altered mental status, generalized weakness. Patient lives with his [id number] reported that patient has been more confused than normal over the course of last few days. Patient was evaluated in the emergency department labs were significant for white blood cell count 3.5 red blood cell 3.3 hemoglobin 9.9 hematocrit 29.9 RDW 15.8 platelets 67 sodium 135 potassium 5.5 BUN 65 creatinine 1.68 GFR 41 glucose 69 calcium 7.9 albumin 1.4 procalcitonin 0.22 troponin 0 0.05. AST [address] head negative for acute findings abdominal ultrasound pending, patient given Kayexalate and calcium gluconate in the emergency department for hyperkalemia. ED provider wishes to admit for further evaluation and management. Patient also admits to self catheterizing at home for urinary retention for the past few weeks, patient is poor historian, oriented x2-3, no family available for review at this time. 20:07 This 70 yrs old Male presents to ER via EMS with complaints of Altered Mental jr8 Status. 20:07 Onset: The symptoms/episode began/occurred gradually. Possible causes: unknown. jr8 Associated signs and symptoms: The patient has no apparent associated signs or symptoms. Current symptoms: In the emergency department the patient's symptoms are unchanged from the initial presentation. Patient's baseline: Neuro: alert and fully oriented, Motor: no deficits, Ambulation: walks without assistance, Speech: normal. The patient has experienced a previous episode. The patient has been recently seen by a physician:. Patient was brought to the emergency room after sister of patient called EMS for altered mentation. Patient currently alert and oriented to person place time and event but cannot recall month or year. Patient stated that he has not been eating as well lately and had recently got out of the [employer] system for similar episode but could not tell me why. Patient currently denies pain, shortness of breath, nausea, vomiting, diarrhea, fevers, chills. Family not present at this time.. Allergies codeine Allergy (Verified 04/25/18 15:25) Hives Hydrocodone-Acetaminophe Allergy (Uncoded 04/25/18 17:30) Unknown Home medications list reviewed: Yes Home Medications: Atorvastatin Calcium [Lipitor] 1 tab PO BEDTIME 04/25/18 Clopidogrel Bisulfate [Plavix*] 1 tab PO DAILY 04/25/18 allopurinoL [Zyloprim*] 1 tab PO DAILY 04/25/18 Aspirin [Aspirin EC 81 MG] 1 tab PO DAILY 07/31/21 Carvedilol [Coreg] 1 tab BID 07/31/21 Famotidine [Pepcid] 20 mg PO DAILY 07/31/21 Furosemide [Lasix*] 1 tab BID 07/31/21 Magnesium Oxide [Magnesium] 1 tab DAILY 07/31/21 Olmesartan Medoxomil 0.5 tab DAILY 07/31/21 - Past Medical/Surgical History Diabetic: Yes -: CAD S/P CABG/ Pm/defib -: HTN -: GOUT -: CKD 3 -: Angioplasty with 6 stents placement -: 5 heart stents -: PM/Defib Psychosocial/ Personal History: Lives at home with STEFANIE and other family - Family History Mother Medical History: Heart disease, Cancer Brother Medical History: Heart disease, Cancer - Social History Smoking Status: Unknown if ever smoked Alcohol use: No CD- Drugs: No Caffeine use: Yes Place of Residence: Home Review of Systems 10-point ROS is otherwise unremarkable General: Weakness, Malaise Musculoskeletal: Foot Pain Neurological: Weakness Physical Examination Temp Pulse Resp BP Pulse Ox 98.5 F 94 H 14 125/62 94 07/31/21 08:00 07/31/21 08:00 07/31/21 08:00 07/31/21 08:00 07/31/21 08:00 General: In no apparent distress, Cooperative HEENT: Atraumatic Neck: Supple Respiratory: Diminished Cardiovascular: Regular rate/rhythm, Edema Gastrointestinal: Soft and benign, Non-distended Musculoskeletal: No clubbing, No contractures, Other (Partial right foot amputation) Integumentary: No rashes, No cyanosis Neurological: Normal speech Laboratory Data (last 24 hrs) 07/30/21 19:20: PT 10.4, INR 0.91, APTT 31.3 07/30/21 19:20: WBC 3.50 L, Hgb 9.9 L, Hct 29.9 L, Plt Count 67 L 07/30/21 19:20: Sodium 135 L, Potassium 5.5 H, BUN 65 H, Creatinine 1.68 H, Glucose 69 L, Magnesium 2.0, Total Bilirubin 0.4, AST 116 H, ALT 46, Alkaline Phosphatase 165 H, Lipase 398 H Imagings Data: EXAM DESCRIPTION: US - Abdomen Exam Limited - 07/30/2021 9:25 pm CLINICAL HISTORY: Abdominal pain. COMPARISON: None. FINDINGS: The gallbladder wall is not thickened. Multiple gallstones The biliary tree is normal caliber. IMPRESSION: Cholelithiasis EXAM DESCRIPTION: FREYAChest Single View07/30/2021 7:54 pm CLINICAL HISTORY: Shortness of breath COMPARISON: 2018 FINDINGS: The lungs appear clear of acute infiltrate. The heart is normal size. Postsurgical changes involve the chest. Pacemaker lead in place IMPRESSION: No acute abnormalities displayed Conclusions/Impression: VISHAL in the setting of urinary retention CKD III with proteinuria -Continue IVF -Give IV Albumin X1 Hyponatremia -Continue IVF with NS Hyperkalemia -Hold Lisinopril Hypocalcemia -Start Calcitriol HTN with CKD -Start IV Metoprolol q6h Severe malnutrition Hypoalbuminemia -Give IV Albumin X1 Anemia in chronic illness Pancytopenia -Transfuse PRBC as needed Gout -Check uric acid level Toxic metabolic encephalopathy -Continue abx Acute cystitis -Follow up culture -Continue Rocephin Thank you kindly for the consultation.
[2021-07-31] MEDS ORDERED: METOPROLOL TARTRATE 5 MG/5 ML INJ IV SCH (11:00)
[2021-07-31] MEDS ORDERED: ALBUMIN HUMAN 25% 200 ML IV ONE (11:00)
[2021-07-31 12:43] LABS: Hematocrit 23.5 % (39.6-49.0)
[2021-07-31] MEDS: carvediloL 3.125 MG TAB PO SCH (17:49)
[2021-07-31] MEDS: VANCOMYCIN/NS 1 gm 1 GM/250 ML BAG IVPB SCH (21:50)
[2021-07-31] MEDS: ATORVASTATIN 80 MG TAB PO SCH (21:51)
[2021-07-31] MEDS: TRAMADOL HCL 50 MG TAB PO PRN (23:36)
[2021-07-31] MEDS: BENZONATATE 100 MG CAP PO PRN (23:36)
[2021-08-01] MEDS: D5 0.45 NS 1,000 ML IV SCH (05:07)
[2021-08-01] MEDS: carvediloL 3.125 MG TAB PO SCH ×2 (05:07→17:13)
[2021-08-01 05:32] LABS: Albumin 1.5 g/dL (3.4-5.0); Bilirubin Total 0.3 mg/dL (0.2-1.0); Phosphorus 3.4 mg/dL (2.5-4.9); Potassium 4.6 mmol/L (3.5-5.1); Protein, Total 4.2 g/dL (6.4-8.2); Uric Acid 6.6 mg/dL (3.5-7.2)
[2021-08-01 05:54] LABS: Absolute Lymphocytes (CBC) 0.8 K/uL (0.7-4.9); Basophils % 0.9 % (0-1.3); Lymphocytes % 26.9 % (15.3-44.8); MPV 10.7 fL (7.6-11.3); RBC Red Blood Cell Count 2.41 M/uL (4.33-5.43)
--- NOTE | 2021-08-01 06:17 | P.PN ---
Subjective Date of Service: 08/01/21 Primary Care Provider: Dr. Camarillo Chief Complaint: AMS Subjective: Other (Improvement noted.) Physical Examination - Vital Signs Temperature: 98.9 F Blood Pressure: 145/69 Pulse: 75 Respirations: 18 Pulse Ox (%): 93 Assessment & Plan Discharge Plan: Other (snf facility) Plan to discharge in: Greater than 2 days Physician Review Additional Text: COVID: negative CT Head: COMPARISON: 2018 TECHNIQUE: Computed axial tomography of the head was obtained. IV contrast was not requested. All CT scans are performed using dose optimization technique as appropriate and may include automated exposure control or mA/KV adjustment according to patient size. FINDINGS: An intracranial bleed is not seen . The ventricles are normal in caliber. No extra-axial fluid collection is noted. Mild cerebral atrophy Fluid within the sinuses/ mastoids is not seen. IMPRESSION: No acute intracranial abnormality is seen ABUS: COMPARISON: None. FINDINGS: The gallbladder wall is not thickened. Multiple gallstones The biliary tree is normal caliber. IMPRESSION: Cholelithiasis CXR: COMPARISON: 2018 FINDINGS: The lungs appear clear of acute infiltrate. The heart is normal size. Postsurgical changes involve the chest. Pacemaker lead in place IMPRESSION: No acute abnormalities displayed Follow up CXR: COMPARISON: Chest Single View dated 07/30/2021; Chest Single View dated 09/29/2018; Chest Pa And Lat (2 Views) dated 04/29/2018; Chest Single View dated 04/27/2018 FINDINGS: Lines: Pacemaker. Lungs: Partially obscured left lung base. Mild increased right basilar opacities. Pleural: No significant pleural effusions or pneumothorax. Cardiac: Mild cardiomegaly. Sternotomy Bones: No acute fractures. IMPRESSION: Increased basilar airspace disease, left greater than right, which may reflect atelectasis. No edema identified. Physical exam: General: Patient alert, cooperative. Muscle wasting noted. HEENT: Neck supple Respiratory: Clear to auscultation bilaterally, Normal air movement Cardiovascular: Regular rate/rhythm, Normal S1 S2 Capillary refill: <2 Seconds Gastrointestinal: Normal bowel sounds, No tenderness Musculoskeletal: No tenderness Integumentary: No rashes Neurological: Patient appears malnourished Impression: Metabolic encephalopathy possibly related to uremia secondary to acute on chronic CKD 3 with hyperkalemia Pancytopenia Urinary retention Elevated troponin Hypoglycemia CAD status post CABG/pacemaker/defibrillator Hypertension Gout GERD Hyperlipidemia Plan: Metabolic encephalopathy possibly related to uremia secondary to acute on chronic CKD 3 with hyperkalemia: Renal function improved. Continue IV fluids. Encourage oral intake. Patient with poor intake. We will have physical therapy assess ambulation. Will have dietary address daily needs. Hemoglobin slightly low. Will transfuse 1 unit of blood due to his multiple risk factors will try to maintain hemoglobin above 7.5. Continue with wound care as recommended by wound care consult. Continue to hold Lasix and losartan. Encourage incentive spirometer. Pancytopenia: Continue to monitor and evaluate.. Urinary retention: Azar catheter in place. Will monitor closely. Urine cultures pending.. Elevated troponin: Monitor lab closely. Hypoglycemia: Continue with IV fluids. CAD status post CABG/pacemaker/defibrillator: Appears stable this time, will continue to monitor on telemetry, trend troponin. Hold aspirin and Plavix due to pancytopenia. Hypertension: Continue carvedilol. Hold olmesartan Gout: Continue allopurinol GERD: Continue Pepcid Hyperlipidemia: Continue Lipitor DVT PPX: SCDs thrombocytopenia. Code status: Full code Discharge Plan: Need to get a hold of family about plan of care. No good working number. Will have nurse try to provide a better working number when family arrives. Would recommend residential facility or long-term care. Time Spent Managing Pts Care (In Minutes): 55
[2021-08-01 08:06] LABS: Blood Morphology Comment NOT SEEN (NOT SEEN); Platelet Estimate DECR
[2021-08-01] MEDS: CALCITROL 0.25 MCG CAP PO SCH (08:37)
[2021-08-01] MEDS: allopurinoL 300 MG TAB PO SCH (08:37)
[2021-08-01] MEDS: FAMOTIDINE 20 MG TAB PO SCH (08:37)
[2021-08-01] MEDS: CEFTRIAXONE 1 GM/NS 50 ML 1 GM/50 ML BAG IV SCH (08:52)
[2021-08-01 09:45] LABS: Hematocrit 21.9 % (39.6-49.0)
--- NOTE | 2021-08-01 11:23 | RAD REPORT ---
EXAM DESCRIPTION: RAD - Chest Single View - 08/01/2021 11:01 am CLINICAL HISTORY: follow up SOB COMPARISON: Chest Single View dated 07/30/2021; Chest Single View dated 09/29/2018; Chest Pa And Lat (2 Views) dated 04/29/2018; Chest Single View dated 04/27/2018 FINDINGS: Lines: Pacemaker. Lungs: Partially obscured left lung base. Mild increased right basilar opacities. Pleural: No significant pleural effusions or pneumothorax. Cardiac: Mild cardiomegaly. Sternotomy Bones: No acute fractures. Other: IMPRESSION: Increased basilar airspace disease, left greater than right, which may reflect atelectas is. No edema identified.
[2021-08-01] MEDS: MEDIHONEY 44 ML TOPICAL TUBE TOP SCH (12:01)
[2021-08-01] MEDS ORDERED: VANCOMYCIN/NS 1 gm 1 GM/250 ML BAG IVPB SCH (13:00)
[2021-08-01] MEDS ORDERED: D5 0.45 NS 1,000 ML IV SCH (14:36)
--- NOTE | 2021-08-01 16:00 | EKG ---
Test Date: 2021-07-30 Test Time: 19:00:36 Instrument Assembler: JIGAR MEASUREMENT RESULTS: Intervals: Rate: 87 WA: 170 QRSD: 94 QT: 392 QTc: 471 [place]: P: 84 WA: 170 QRS: 62 T: 18 INTERPRETIVE STATEMENTS: Normal sinus rhythm Nonspecific T wave abnormality Prolonged QT Abnormal ECG Compared to ECG 09/29/2018 16:45:13 No significant changes Electronically Signed On 08-01-21 15:56:45 CDT by Negro Rodriguez
[2021-08-01] MEDS: ENSURE ENLIVE 237 ML CAN PO SCH (21:00)
--- NOTE | 2021-08-01 21:16 | P.PN ---
Date of Service: 08/01/21 Vital Signs Temp Pulse Resp BP Pulse Ox 98.1 F 74 18 157/81 H 96 08/01/21 19:52 08/01/21 19:52 08/01/21 19:52 08/01/21 19:52 08/01/21 19:52 Medications Allopurinol (Allopurinol 300 Mg Tab) 300 mg PO DAILY [facility] Last Admin: 08/01/21 08:37 Dose: 300 mg Documented by: Atorvastatin Calcium (Atorvastatin 80 Mg Tab) 80 mg PO BEDTIME ZAY Last Admin: 07/31/21 21:51 Dose: 80 mg Documented by: Benzonatate (Benzonatate 100 Mg Cap) 100 mg PO TIDP PRN PRN Reason: COUGH Last Admin: 07/31/21 23:36 Dose: 100 mg Documented by: Calcitriol (Calcitrol 0.25 Mcg Cap) 0.5 mcg PO DAILY ZAY Last Admin: 08/01/21 08:37 Dose: 0.5 mcg Documented by: Carvedilol (Carvedilol 3.125 Mg Tab) 3.125 mg PO BID 6AM 6PM ZAY Last Admin: 08/01/21 17:13 Dose: 3.125 mg Documented by: Emollient Gel (Medihoney 44 Ml Topical Tube) 0 appl TOP DAILY ZAY Last Admin: 08/01/21 12:01 Dose: 1 appl Documented by: Famotidine (Famotidine 20 Mg Tab) 20 mg PO DAILY [facility]; Protocol Last Admin: 08/01/21 08:37 Dose: 20 mg Documented by: Ceftriaxone Sodium/Sodium Chloride (Rocephin 1gm/50 Ml Ivpb) 1 gm in 50 mls @ 100 mls/hr IV DAILY ZAY; Protocol Last Admin: 08/01/21 08:52 Dose: 50 mls Documented by: Vancomycin HCl (Vancomycin 1 Gm/250 Ml Ns Ivpb) 1 gm in 250 mls @ 250 mls/hr IVPB Q24H ZAY; Protocol Last Admin: 07/31/21 21:50 Dose: 250 mls Documented by: Dextrose/Sodium Chloride (Dextrose 5% O.45% Saline) 1,000 mls @ 75 mls/hr IV .[id number] ZAY Last Admin: 08/01/21 16:39 Dose: 1,000 mls Documented by: Nutritional Formula (Ensure Enlive 237 Ml Can) 237 ml PO BID ZAY Ondansetron HCl (Ondansetron 4 Mg/2 Ml Vial) 4 mg IV Q6HP PRN PRN Reason: NAUSEA / VOMITING Sodium Chloride (Flush Normal Saline 10 Ml) 10 ml IV BID [facility] Last Admin: 08/01/21 08:38 Dose: 10 ml Documented by: Tramadol HCl (Tramadol Hcl 50 Mg Tab) 50 mg PO TID PRN PRN Reason: Pain scale 2-4 (Mild) Last Admin: 07/31/21 23:36 Dose: 50 mg Documented by: Microbiology Results 07/30/21 19:23 Catheterized Urine [place] Count - Preliminary >100,000 CFU/ML. 07/30/21 19:23 Catheterized Urine - Preliminary 07/30/21 19:20 Blood - Blood Aerobic Blood Culture - Preliminary No growth in 24 hours. 07/30/21 19:20 Blood - Blood Anaerobic Blood Culture - Preliminary No growth in 24 hours. 07/30/21 19:20 Blood - Blood Aerobic Blood Culture - Preliminary No growth in 24 hours. 07/30/21 19:20 Blood - Blood Anaerobic Blood Culture - Preliminary No growth in 24 hours. Assessment/ Plan: Nephrology Progress Note Fatigue and weakness. No chest pain or dyspnea No acute events overnight Vitals, medications blood work and imaging reviewed in the chart General: In no apparent distress, Cooperative HEENT: Atraumatic Neck: Supple Respiratory: Diminished Cardiovascular: Regular rate/rhythm, Edema Gastrointestinal: Soft and benign, Non-distended Musculoskeletal: No clubbing, No contractures, Other (Partial right foot amputation) Integumentary: No rashes, No cyanosis Neurological: Normal speech Laboratory Data (last 24 hrs) 07/30/21 19:20: PT 10.4, INR 0.91, APTT 31.3 07/30/21 19:20: WBC 3.50 L, Hgb 9.9 L, Hct 29.9 L, Plt Count 67 L 07/30/21 19:20: Sodium 135 L, Potassium 5.5 H, BUN 65 H, Creatinine 1.68 H, Glucose 69 L, Magnesium 2.0, Total Bilirubin 0.4, AST 116 H, ALT 46, Alkaline Phosphatase 165 H, Lipase 398 H Imagings Data: EXAM DESCRIPTION: US - Abdomen Exam Limited - 07/30/2021 9:25 pm CLINICAL HISTORY: Abdominal pain. COMPARISON: None. FINDINGS: The gallbladder wall is not thickened. Multiple gallstones The biliary tree is normal caliber. IMPRESSION: Cholelithiasis EXAM DESCRIPTION: Janelle Single View07/30/2021 7:54 pm CLINICAL HISTORY: Shortness of breath COMPARISON: 2017 FINDINGS: The lungs appear clear of acute infiltrate. The heart is normal size. Postsurgical changes involve the chest. Pacemaker lead in place IMPRESSION: No acute abnormalities displayed Conclusions/Impression: VISHAL in the setting of urinary retention CKD III with proteinuria -Continue IVF -Give IV Albumin PRN Hyponatremia -Agree with change in IVF Hyperkalemia -Hold Lisinopril Hypocalcemia -Continue Calcitriol HTN with CKD -Continue Coreg Severe malnutrition Hypoalbuminemia -Give IV Albumin PRN Anemia in chronic illness Pancytopenia -Transfuse PRBC X1 unit Gout -Continue Allopurinol Toxic metabolic encephalopathy -Continue abx Acute cystitis, Coag Neg Staph -Follow up culture -Continue Rocephin Case reviewed with Dr. Lyon
[2021-08-01] MEDS ORDERED: LORazepam 2 MG/ML VIAL IV ONE (21:31)
[2021-08-01] MEDS: VANCOMYCIN/NS 1 gm 1 GM/250 ML BAG IVPB SCH (21:48)
[2021-08-01] MEDS: ATORVASTATIN 80 MG TAB PO SCH (21:48)
[2021-08-02] MEDS: BENZONATATE 100 MG CAP PO PRN ×3 (01:43→15:51)
[2021-08-02] MEDS: carvediloL 3.125 MG TAB PO SCH ×2 (06:17→17:01)
--- NOTE | 2021-08-02 06:34 | P.PN ---
Subjective Date of Service: 08/02/21 Primary Care Provider: Dr. Camarillo Chief Complaint: AMS Subjective: Improving (Overall improved.) Physical Examination - Vital Signs Temperature: 98.3 F Blood Pressure: 164/88 Pulse: 92 Respirations: 20 Pulse Ox (%): 94 Assessment & Plan Discharge Plan: Other (halfway facility) Plan to discharge in: Greater than 2 days Physician Review Additional Text: COVID: negative CT Head: COMPARISON: 2018 TECHNIQUE: Computed axial tomography of the head was obtained. IV contrast was not requested. All CT scans are performed using dose optimization technique as appropriate and may include automated exposure control or mA/KV adjustment according to patient size. FINDINGS: An intracranial bleed is not seen . The ventricles are normal in caliber. No extra-axial fluid collection is noted. Mild cerebral atrophy Fluid within the sinuses/ mastoids is not seen. IMPRESSION: No acute intracranial abnormality is seen ABUS: COMPARISON: None. FINDINGS: The gallbladder wall is not thickened. Multiple gallstones The biliary tree is normal caliber. IMPRESSION: Cholelithiasis CXR: COMPARISON: 2018 FINDINGS: The lungs appear clear of acute infiltrate. The heart is normal size. Postsurgical changes involve the chest. Pacemaker lead in place IMPRESSION: No acute abnormalities displayed Follow up CXR: COMPARISON: Chest Single View dated 08/01/2021; Chest Single View dated 07/30/2021; Chest Single View dated 09/29/2018; Chest Pa And Lat (2 Views) dated 04/29/2018 FINDINGS: Lines: Left subclavian approach defibrillator. Lungs: Similar aeration lungs with mild basilar opacities, left greater than right. Pleural: No significant pleural effusions or pneumothorax. Cardiac: Borderline cardiomegaly. Sternotomy. Bones: No acute fractures. IMPRESSION: No significant change compared with 08/01/2021. Mild basilar opacities, left greater than right, which may reflect atelectasis and/or mild pneumonia. Physical exam: General: Patient alert, cooperative. Muscle wasting noted. HEENT: Neck supple Respiratory: Clear to auscultation bilaterally, Normal air movement Cardiovascular: Regular rate/rhythm, Normal S1 S2 Capillary refill: <2 Seconds Gastrointestinal: Normal bowel sounds, No tenderness Musculoskeletal: No tenderness Integumentary: No rashes Neurological: Patient appears malnourished Impression: Metabolic encephalopathy possibly related to uremia/UTI with culture showing gram-negative rods complicated with acute on chronic CKD 3 with hyperkalemia Pancytopenia Urinary retention Elevated troponin Hypoglycemia CAD status post CABG/pacemaker/defibrillator Hypertension Gout GERD Hyperlipidemia Plan: Metabolic encephalopathy possibly related to uremia/UTI with culture showing gram-negative rods complicated with acute on chronic CKD 3 with hyperkalemia: Renal function improved. Continue IV fluids but will adjust accordingly. Chest x-ray shows no evidence of CHF. Will monitor closely. Suspect underlying COPD. Will start medication for COPD. Physical therapy to assess ambulation. Patient with UTI. Will start antibiotic therapy. No need to transfuse. Will monitor closely. Pancytopenia: Continue to monitor and evaluate.. Urinary retention: Azar catheter in place. Will monitor closely. Urine cultures pending.. Elevated troponin: Monitor lab closely. Hypoglycemia: Continue with IV fluids. CAD status post CABG/pacemaker/defibrillator: Appears stable this time, will continue to monitor on telemetry, trend troponin. Hold aspirin and Plavix due to pancytopenia. Hypertension: Continue carvedilol. Hold olmesartan Gout: Continue allopurinol GERD: Continue Pepcid Hyperlipidemia: Continue Lipitor DVT PPX: SCDs thrombocytopenia. Code status: Full code Discharge Plan: Not able to reach family. currently in hospital for Covid. Spoke with patient about the possibility of long-term care or skilled facility. We will have social work help with this. Time Spent Managing Pts Care (In Minutes): 55
[2021-08-02 06:53] LABS: Hematocrit 25.9 % (39.6-49.0); Lymphocytes % 34.5 % (15.3-44.8); MPV 8.7 fL (7.6-11.3); RBC Red Blood Cell Count 2.86 M/uL (4.33-5.43)
[2021-08-02 07:01] LABS: Albumin 1.5 g/dL (3.4-5.0); Bilirubin Total 0.4 mg/dL (0.2-1.0); Magnesium 2.1 mg/dL (1.8-2.4); Potassium 4.6 mmol/L (3.5-5.1); Protein, Total 4.7 g/dL (6.4-8.2)
[2021-08-02 07:43] LABS: Phosphorus 3.5 mg/dL (2.5-4.9)
[2021-08-02] MEDS ORDERED: D5 0.45 NS 1,000 ML IV SCH (08:21)
[2021-08-02] MEDS: CALCITROL 0.25 MCG CAP PO SCH (08:55)
[2021-08-02] MEDS: CEFTRIAXONE 1 GM/NS 50 ML 1 GM/50 ML BAG IV SCH (08:55)
[2021-08-02] MEDS: MEDIHONEY 44 ML TOPICAL TUBE TOP SCH (08:55)
[2021-08-02] MEDS: FAMOTIDINE 20 MG TAB PO SCH (08:55)
[2021-08-02] MEDS: allopurinoL 300 MG TAB PO SCH (08:55)
[2021-08-02] MEDS: ENSURE ENLIVE 237 ML CAN PO SCH ×2 (08:56→09:00)
[2021-08-02] MEDS: IPRATROPIUM BROM 0.5MG/2.5ML NEB PRN ×2 (10:16→14:44)
[2021-08-02] MEDS: ALBUTEROL 2.5 MG/3 ML NEB SOL NEB PRN ×2 (10:17→14:45)
--- NOTE | 2021-08-02 10:34 | RAD REPORT ---
EXAM DESCRIPTION: RAD - Chest Single View - 08/02/2021 10:19 am CLINICAL HISTORY: follow up wheezing COMPARISON: Chest Single View dated 08/01/2021; Chest Single View dated 07/30/2021; Chest Single View dated 09/29/2018; Chest Pa And Lat (2 Views) dated 04/29/2018 FINDINGS: Lines: Left subclavian approach defibrillator. Lungs: Similar aeration lungs with mild basilar opacities, left greater than right. Pleural: No significant pleural effusions or pneumothorax. Cardiac: Borderline cardiomegaly. Sternotomy. Bones: No acute fractures. Other: IMPRESSION: No significant change compared with 08/01/2021. Mild basilar opacities, left greater sarah n right, which may reflect atelectasis and/or mild pneumonia.
[2021-08-02] MEDS: TRAMADOL HCL 50 MG TAB PO PRN ×2 (15:51→21:54)
[2021-08-02 18:03] LABS: Urine Appearance CLOUDY (Clear); Urine Bilirubin NEGATIVE (Negative); Urine Blood 3+ (Negative); Urine Color YELLOW (Yellow); Urine Glucose NEGATIVE (Negative); Urine Microscopic Reflex ORDER UMIC; Urine Protein 3+ (Negative); Urine Specific Gravity 1.015 (1.005-1.030); Urine Urobilinogen 0.2 mg/dL (0.2-1.0)
[2021-08-02 19:05] LABS: Urine Bacteria <20 /HPF (NONE SEEN); Urine RBC 20-50 /HPF (NONE SEEN)
[2021-08-02] MEDS: ARFORMOTEROL TARTRATE 15 MCG/2 ML VIAL.NEB NEB SCH (20:05)
[2021-08-02] MEDS ORDERED: LORazepam 2 MG/ML VIAL ONE (20:50)
--- NOTE | 2021-08-02 21:15 | P.PN ---
Date of Service: 08/02/21 Vital Signs Temp Pulse Resp BP Pulse Ox 98.3 F 92 H 20 164/88 H 94 08/02/21 17:13 08/02/21 17:13 08/02/21 17:13 08/02/21 17:13 08/02/21 17:13 Medications Albuterol Sulfate (Albuterol 2.5 Mg/3 Ml Neb Kasia) 2.5 mg NEB Q6HP PRN PRN Reason: SHORTNESS OF BREATH Last Admin: 08/02/21 14:45 Dose: 2.5 mg Documented by: Allopurinol (Allopurinol 300 Mg Tab) 300 mg PO DAILY ZAY Last Admin: 08/02/21 08:55 Dose: 300 mg Documented by: Arformoterol Tartrate (Arformoterol Tartrate 15 Mcg/2 Ml Vial.Neb) 15 mcg NEB BIDRESP ZAY Atorvastatin Calcium (Atorvastatin 80 Mg Tab) 80 mg PO BEDTIME ZAY Last Admin: 08/01/21 21:48 Dose: 80 mg Documented by: Benzonatate (Benzonatate 100 Mg Cap) 100 mg PO TIDP PRN PRN Reason: COUGH Last Admin: 08/02/21 15:51 Dose: 100 mg Documented by: Calcitriol (Calcitrol 0.25 Mcg Cap) 0.5 mcg PO DAILY ZAY Last Admin: 08/02/21 08:55 Dose: 0.5 mcg Documented by: Carvedilol (Carvedilol 3.125 Mg Tab) 3.125 mg PO BID 6AM 6PM ZAY Last Admin: 08/02/21 17:01 Dose: 3.125 mg Documented by: Emollient Gel (Medihoney 44 Ml Topical Tube) 0 appl TOP DAILY ZAY Last Admin: 08/02/21 08:55 Dose: 1 appl Documented by: Famotidine (Famotidine 20 Mg Tab) 20 mg PO DAILY ZAY; Protocol Last Admin: 08/02/21 08:55 Dose: 20 mg Documented by: Ceftriaxone Sodium/Sodium Chloride (Rocephin 1gm/50 Ml Ivpb) 1 gm in 50 mls @ 100 mls/hr IV DAILY [facility]AY; Protocol Last Admin: 08/02/21 08:55 Dose: 50 mls Documented by: Dextrose/Sodium Chloride (Dextrose 5% O.45% Saline) 1,000 mls @ 50 mls/hr IV .Q20H ZAY Ipratropium [place] (Ipratropium Brom 0.5mg/2.5ml) 0.5 mg NEB Q6HP PRN PRN Reason: SHORTNESS OF BREATH Last Admin: 08/02/21 14:44 Dose: 0.5 mg Documented by: Nutritional Formula (Ensure Enlive 237 Ml Can) 237 ml PO BID [facility] Last Admin: 08/02/21 09:00 Dose: Not Given Documented by: Ondansetron HCl (Ondansetron 4 Mg/2 Ml Vial) 4 mg IV Q6HP PRN PRN Reason: NAUSEA / VOMITING Sodium Chloride (Flush Normal Saline 10 Ml) 10 ml IV BID [facility] Last Admin: 08/02/21 08:55 Dose: 10 ml Documented by: Tramadol HCl (Tramadol Hcl 50 Mg Tab) 50 mg PO TID PRN PRN Reason: Pain scale 2-4 (Mild) Last Admin: 08/02/21 15:51 Dose: 50 mg Documented by: Microbiology Results 07/30/21 19:23 Catheterized Urine [place] Count - Preliminary >100,000 CFU/ML. 07/30/21 19:23 Catheterized Urine - Preliminary 07/30/21 19:20 Blood - Blood Aerobic Blood Culture - Preliminary No growth in 24 hours. 07/30/21 19:20 Blood - Blood Anaerobic Blood Culture - Preliminary No growth in 24 hours. 07/30/21 19:20 Blood - Blood Aerobic Blood Culture - Preliminary No growth in 24 hours. 07/30/21 19:20 Blood - Blood Anaerobic Blood Culture - Preliminary No growth in 24 hours. Assessment/ Plan: Nephrology Progress Note Fatigue and weakness. No chest pain or dyspnea No acute events overnight Vitals, medications blood work and imaging reviewed in the chart General: In no apparent distress, Cooperative HEENT: Atraumatic Neck: Supple Respiratory: Diminished Cardiovascular: Regular rate/rhythm, Edema Gastrointestinal: Soft and benign, Non-distended Musculoskeletal: No clubbing, No contractures, Other (Partial right foot amputation) Integumentary: No rashes, No cyanosis Neurological: Normal speech Laboratory Data (last 24 hrs) 07/30/21 19:20: PT 10.4, INR 0.91, APTT 31.3 07/30/21 19:20: WBC 3.50 L, Hgb 9.9 L, Hct 29.9 L, Plt Count 67 L 07/30/21 19:20: Sodium 135 L, Potassium 5.5 H, BUN 65 H, Creatinine 1.68 H, Glucose 69 L, Magnesium 2.0, Total Bilirubin 0.4, AST 116 H, ALT 46, Alkaline Phosphatase 165 H, Lipase 398 H Imagings Data: EXAM DESCRIPTION: US - Abdomen Exam Limited - 07/30/2021 9:25 pm CLINICAL HISTORY: Abdominal pain. COMPARISON: None. FINDINGS: The gallbladder wall is not thickened. Multiple gallstones The biliary tree is normal caliber. IMPRESSION: Cholelithiasis EXAM DESCRIPTION: Janelle Single View07/30/2021 7:54 pm CLINICAL HISTORY: Shortness of breath COMPARISON: 2018 FINDINGS: The lungs appear clear of acute infiltrate. The heart is normal size. Postsurgical changes involve the chest. Pacemaker lead in place IMPRESSION: No acute abnormalities displayed Conclusions/Impression: VISHAL in the setting of urinary retention CKD III with proteinuria -Continue IVF -Give IV Albumin PRN Hyponatremia Hyperkalemia -Hold Lisinopril Hypocalcemia -Continue Calcitriol HTN with CKD -Continue Coreg Severe malnutrition Hypoalbuminemia -Give IV Albumin PRN Anemia in chronic illness Pancytopenia -Transfuse PRBC PRN Gout -Continue Allopurinol Toxic metabolic encephalopathy -Continue abx Acute cystitis, Coag Neg Staph -Follow up culture -Continue Rocephin
[2021-08-02] MEDS: ATORVASTATIN 80 MG TAB PO SCH (21:54)
[2021-08-03] MEDS: LORazepam 2 MG/ML VIAL IV PRN ×2 (02:06→19:30)
[2021-08-03 04:19] LABS: Lymphocytes % 34.1 % (15.3-44.8); MPV 9.1 fL (7.6-11.3); RBC Red Blood Cell Count 2.77 M/uL (4.33-5.43)
[2021-08-03 04:34] LABS: Albumin 1.2 g/dL (3.4-5.0); Bilirubin Total 0.3 mg/dL (0.2-1.0); Magnesium 2.2 mg/dL (1.8-2.4); Potassium 4.4 mmol/L (3.5-5.1); Protein, Total 4.3 g/dL (6.4-8.2)
[2021-08-03] MEDS: carvediloL 3.125 MG TAB PO SCH ×2 (06:00→17:16)
--- NOTE | 2021-08-03 06:18 | P.PN ---
Subjective Date of Service: 08/03/21 Primary Care Provider: Dr. Camarillo Chief Complaint: AMS Physical Examination - Vital Signs Temperature: 97.4 F Blood Pressure: 162/77 Pulse: 82 Respirations: 16 Pulse Ox (%): 97 Assessment & Plan Physician Review Additional Text: COVID: negative CT Head: COMPARISON: 2018 TECHNIQUE: Computed axial tomography of the head was obtained. IV contrast was not requested. All CT scans are performed using dose optimization technique as appropriate and may include automated exposure control or mA/KV adjustment according to patient size. FINDINGS: An intracranial bleed is not seen . The ventricles are normal in caliber. No extra-axial fluid collection is noted. Mild cerebral atrophy Fluid within the sinuses/ mastoids is not seen. IMPRESSION: No acute intracranial abnormality is seen ABUS: COMPARISON: None. FINDINGS: The gallbladder wall is not thickened. Multiple gallstones The biliary tree is normal caliber. IMPRESSION: Cholelithiasis CXR: COMPARISON: 2018 FINDINGS: The lungs appear clear of acute infiltrate. The heart is normal size. Postsurgical changes involve the chest. Pacemaker lead in place IMPRESSION: No acute abnormalities displayed Follow up CXR: COMPARISON: Chest Single View dated 08/01/2021; Chest Single View dated 07/30/2021; Chest Single View dated 09/29/2018; Chest Pa And Lat (2 Views) dated 04/29/2018 FINDINGS: Lines: Left subclavian approach defibrillator. Lungs: Similar aeration lungs with mild basilar opacities, left greater than right. Pleural: No significant pleural effusions or pneumothorax. Cardiac: Borderline cardiomegaly. Sternotomy. Bones: No acute fractures. IMPRESSION: No significant change compared with 08/01/2021. Mild basilar opacities, left greater than right, which may reflect atelectasis and/or mild pneumonia. Physical exam: General: Patient alert, cooperative. Muscle wasting noted. HEENT: Neck supple Respiratory: Clear to auscultation bilaterally, Normal air movement Cardiovascular: Regular rate/rhythm, Normal S1 S2 Capillary refill: <2 Seconds Gastrointestinal: Normal bowel sounds, No tenderness Musculoskeletal: No tenderness Integumentary: No rashes Neurological: Patient appears malnourished Impression: Metabolic encephalopathy possibly related to uremia/UTI with culture showing gram-negative rods complicated with acute on chronic CKD 3 with hyperkalemia Pancytopenia Urinary retention Elevated troponin Hypoglycemia CAD status post CABG/pacemaker/defibrillator Hypertension Gout GERD Hyperlipidemia Plan: Metabolic encephalopathy possibly related to uremia/UTI with culture showing gram-negative rods complicated with acute on chronic CKD 3 with hyperkalemia: Renal function improved. Continue IV fluids but will adjust accordingly. Chest x-ray shows no evidence of CHF. Will monitor closely. Suspect underlying COPD. Will start medication for COPD. Physical therapy to assess ambulation. Patient with UTI. Will start antibiotic therapy. No need to transfuse. Will monitor closely. Pancytopenia: Continue to monitor and evaluate.. Urinary retention: Azar catheter in place. Will monitor closely. Urine cultures pending.. Elevated troponin: Monitor lab closely. Hypoglycemia: Continue with IV fluids. CAD status post CABG/pacemaker/defibrillator: Appears stable this time, will continue to monitor on telemetry, trend troponin. Hold aspirin and Plavix due to pancytopenia. Hypertension: Continue carvedilol. Hold olmesartan Gout: Continue allopurinol GERD: Continue Pepcid Hyperlipidemia: Continue Lipitor DVT PPX: SCDs thrombocytopenia. Code status: Full code Discharge Plan: Not able to reach family. currently in hospital for Covid. Spoke with patient about the possibility of long-term care or skilled facility. We will have social work help with this.
[2021-08-03] MEDS: ARFORMOTEROL TARTRATE 15 MCG/2 ML VIAL.NEB NEB SCH ×2 (07:54→20:00)
[2021-08-03] MEDS: allopurinoL 300 MG TAB PO SCH (09:00)
[2021-08-03] MEDS: CALCITROL 0.25 MCG CAP PO SCH (09:00)
[2021-08-03] MEDS: ENSURE ENLIVE 237 ML CAN PO SCH ×2 (09:00→20:56)
[2021-08-03] MEDS: FAMOTIDINE 20 MG TAB PO SCH (09:00)
[2021-08-03] MEDS: CEFTRIAXONE 1 GM/NS 50 ML 1 GM/50 ML BAG IV SCH (09:56)
[2021-08-03] MEDS: MEDIHONEY 44 ML TOPICAL TUBE TOP SCH (09:57)
[2021-08-03] MEDS: D5 0.45 NS 1,000 ML IV SCH ×2 (11:51→15:53)
--- NOTE | 2021-08-03 12:35 | P.PN ---
Subjective Date of Service: 08/03/21 Primary Care Provider: Dr. Camarillo Chief Complaint: AMS Subjective: Other (Still confused. Poor intake noted.) Physical Examination - Vital Signs Temperature: 97.1 F Blood Pressure: 132/85 Pulse: 85 Respirations: 16 Pulse Ox (%): 97 - Studies Microbiology Data (last 24 hrs): 07/30/21 19:23 Catheterized Urine [place] Count - Final >100,000 CFU/ML. 07/30/21 19:23 Catheterized Urine - Final Staphylococcus Warneri Assessment & Plan Discharge Plan: Home Physician Review Additional Text: COVID: negative CT Head: COMPARISON: 2018 TECHNIQUE: Computed axial tomography of the head was obtained. IV contrast was not requested. All CT scans are performed using dose optimization technique as appropriate and may include automated exposure control or mA/KV adjustment according to patient size. FINDINGS: An intracranial bleed is not seen . The ventricles are normal in caliber. No extra-axial fluid collection is noted. Mild cerebral atrophy Fluid within the sinuses/ mastoids is not seen. IMPRESSION: No acute intracranial abnormality is seen ABUS: COMPARISON: None. FINDINGS: The gallbladder wall is not thickened. Multiple gallstones The biliary tree is normal caliber. IMPRESSION: Cholelithiasis CXR: COMPARISON: 2018 FINDINGS: The lungs appear clear of acute infiltrate. The heart is normal size. Postsurgical changes involve the chest. Pacemaker lead in place IMPRESSION: No acute abnormalities displayed Follow up CXR 08/02/2021: COMPARISON: Chest Single View dated 08/01/2021; Chest Single View dated 07/30/2021; Chest Single View dated 09/29/2018; Chest Pa And Lat (2 Views) dated 04/29/2018 FINDINGS: Lines: Left subclavian approach defibrillator. Lungs: Similar aeration lungs with mild basilar opacities, left greater than right. Pleural: No significant pleural effusions or pneumothorax. Cardiac: Borderline cardiomegaly. Sternotomy. Bones: No acute fractures. IMPRESSION: No significant change compared with 08/01/2021. Mild basilar op acities, left greater than right, which may reflect atelectasis and/or mild pneumonia. Physical exam: General: Patient with some confusion. Poor affect. Patient not participating in eating. HEENT: Neck supple Respiratory: Clear to auscultation bilaterally, Normal air movement Cardiovascular: Regular rate/rhythm, Normal S1 S2 Capillary refill: <2 Seconds Gastrointestinal: Normal bowel sounds, No tenderness Musculoskeletal: No tenderness Integumentary: No rashes Neurological: Patient appears malnourished Impression: Metabolic encephalopathy possibly related to uremia/UTI with culture showing staphylococcus warneri complicated with acute on chronic CKD 3 with hyperkalemia Pancytopenia Urinary retention Elevated troponin Hypoglycemia CAD status post CABG/pacemaker/defibrillator Hypertension Gout GERD Hyperlipidemia Plan: Metabolic encephalopathy possibly related to uremia/UTI with culture showing staphylococcus warneri complicated with acute on chronic CKD 3 with hyperkalemia: Patient still with confusion. Patient receiving IV fluids. Poor oral intake noted. Failure to thrive noted. Case discussed at length with [id number]. She came with a phone of the son who is helping make decisions for the patient. Expressed to the son that his condition has not significantly improved. Plus patient with poor oral intake and failure to thrive. Son reports patient lost his a couple of months ago. Since that time his health has declined. Son reports patient likely with severe depression. Discussed at length with son about readdressing advanced directives and consider aggressive options including PEG tube versus nonaggressive options including skilled facility versus long-term care versus hospice. He will discuss with other siblings. I will contact him later. Patient with multi resistant UTI. Will discuss with Pharmacy on best option for treatment of UTI. Pancytopenia: Continue to monitor and evaluate.. Urinary retention: Azar catheter in place. Will monitor closely. Urine cultures pending.. Elevated troponin: Monitor lab closely. Hypoglycemia: Continue with IV fluids. CAD status post CABG/pacemaker/defibrillator: Appears stable this time, will continue to monitor on telemetry, trend troponin. Hold aspirin and Plavix due to pancytopenia. Hypertension: Continue carvedilol. Hold olmesartan Gout: Continue allopurinol GERD: Continue Pepcid Hyperlipidemia: Continue Lipitor Failure to Thrive: Dietary consulted. Will continue to encourage oral intake. Will need to consider aggressive vs non agressive options. Await decision by family on how to proceed. DVT PPX: SCDs thrombocytopenia. Code status: Full code Discharge Plan: Spoke to son. He will discuss with siblings today on continue aggressive(feeding tube) vs non aggressive options(SNF vs NH vs Hospice). Also await to hear back on readdressing advanced care planning. Time Spent Managing Pts Care (In Minutes): 55
[2021-08-03] MEDS ORDERED: VANCOMYCIN/NS 1 gm 1 GM/250 ML BAG IV SCH ×2 (14:00)
[2021-08-03] MEDS: VANCOMYCIN/NS 1 gm 1 GM/250 ML BAG IV SCH (15:51)
[2021-08-03] MEDS: ATORVASTATIN 80 MG TAB PO SCH (20:56)
[2021-08-03] MEDS ORDERED: ZIPRASIDONE MESYLA 20 MG/VIAL IM ONE (22:25)
[2021-08-03] MEDS ORDERED: WATER FOR INJ,STERILE 10 ML IM PRN (22:25)
[2021-08-04] MEDS: D5 0.45 NS 1,000 ML IV SCH ×3 (01:11→14:31)
[2021-08-04] MEDS: HYDRALAZINE HCL 20 MG/ML VIAL IV PRN (04:40)
[2021-08-04] MEDS: carvediloL 3.125 MG TAB PO SCH ×2 (06:00→17:27)
[2021-08-04 07:18] LABS: Absolute Lymphocytes (CBC) 0.9 K/uL (0.7-4.9); Basophils % 0.9 % (0-1.3); Hematocrit 28.4 % (39.6-49.0); Lymphocytes % 29.4 % (15.3-44.8); MPV 9.3 fL (7.6-11.3); RBC Red Blood Cell Count 3.09 M/uL (4.33-5.43)
[2021-08-04 07:19] LABS: Albumin 1.3 g/dL (3.4-5.0); Bilirubin Total 0.3 mg/dL (0.2-1.0); Magnesium 2.2 mg/dL (1.8-2.4); Potassium 4.3 mmol/L (3.5-5.1); Protein, Total 4.8 g/dL (6.4-8.2)
[2021-08-04] MEDS: ARFORMOTEROL TARTRATE 15 MCG/2 ML VIAL.NEB NEB SCH ×2 (07:58→20:00)
[2021-08-04] MEDS: CALCITROL 0.25 MCG CAP PO SCH (08:21)
[2021-08-04] MEDS: MEDIHONEY 44 ML TOPICAL TUBE TOP SCH (08:21)
[2021-08-04] MEDS: allopurinoL 300 MG TAB PO SCH (08:21)
[2021-08-04] MEDS: ENSURE ENLIVE 237 ML CAN PO SCH ×2 (08:21→20:53)
[2021-08-04] MEDS: FAMOTIDINE 20 MG TAB PO SCH (08:21)
--- NOTE | 2021-08-04 11:59 | P.PN ---
Subjective Date of Service: 08/04/21 Primary Care Provider: Dr. Camarillo Chief Complaint: AMS Subjective: Other (No significant change since yesterday. Patient still confused. Poor engagement. Poor oral intake.) Physical Examination - Vital Signs Temperature: 96.9 F Blood Pressure: 153/81 Pulse: 89 Respirations: 19 Pulse Ox (%): 98 - Studies Microbiology Data (last 24 hrs): 07/30/21 19:23 Catheterized Urine [place] Count - Final >100,000 CFU/ML. 07/30/21 19:23 Catheterized Urine - Final Staphylococcus Warneri Assessment & Plan Discharge Plan: Other (Need to consider hospice) Plan to discharge in: 48 Hours Physician Review Additional Text: COVID: negative CT Head: COMPARISON: 2018 TECHNIQUE: Computed axial tomography of the head was obtained. IV contrast was not requested. All CT scans are performed using dose optimization technique as appropriate and may include automated exposure control or mA/KV adjustment according to patient size. FINDINGS: An intracranial bleed is not seen . The ventricles are normal in caliber. No extra-axial fluid collection is noted. Mild cerebral atrophy Fluid within the sinuses/ mastoids is not seen. IMPRESSION: No acute intracranial abnormality is seen ABUS: COMPARISON: None. FINDINGS: The gallbladder wall is not thickened. Multiple gallstones The biliary tree is normal caliber. IMPRESSION: Cholelithiasis CXR: COMPARISON: 2017 FINDINGS: The lungs appear clear of acute infiltrate. The heart is normal size. Postsurgical changes involve the chest. Pacemaker lead in place IMPRESSION: No acute abnormalities displayed Follow up CXR 08/02/2021: COMPARISON: Chest Single View dated 08/01/2021; Chest Single View dated 07/30/2021; Chest Single View dated 09/29/2018; Chest Pa And Lat (2 Views) dated 04/29/2018 FINDINGS: Lines: Left subclavian approach defibrillator. Lungs: Similar aeration lungs with mild basilar opacities, left greater than right. Pleural: No significant pleural effusions or pneumothorax. Cardiac: Borderline cardiomegaly. Sternotomy. Bones: No acute fractures. IMPRESSION: No significant change compared with 08/01/2021. Mild basilar opacities, left greater than right, which may reflect atelectasis and/or mild pneumonia. Physical exam: General: Patient remains confused. Poor affect. Poor oral intake. HEENT: Neck supple Respiratory: Clear to auscultation bilaterally, Normal air movement. Currently on room air Cardiovascular: Regular rate/rhythm, Normal S1 S2 Capillary refill: <2 Seconds Gastrointestinal: Normal bowel sounds, No tenderness Musculoskeletal: No tenderness Integumentary: No rashes Neurological: Patient appears malnourished. Muscle wasting to the upper and lower extremities. Impression: Metabolic encephalopathy possibly related to uremia/UTI with culture showing staphylococcus warneri complicated with acute on chronic CKD 3 with hyperkalemia Pancytopenia Urinary retention Elevated troponin Hypoglycemia CAD status post CABG/pacemaker/defibrillator Hypertension Gout GERD Hyperlipidemia Failure to thrive with severe protein malnutrition Plan: Metabolic encephalopathy possibly related to uremia/UTI with culture showing staphylococcus warneri complicated with acute on chronic CKD 3 with hyperkalemia: Patient still with confusion. Poor oral intake noted. Failure to thrive noted. Patient started on IV vancomycin after discussion with pharmacy concerning UTI. PICC line ordered as patient will require IV antibiotic therapy for 7 days. Due to his current status Case discussed at length with both sons. Oldest son came to visit yesterday. Spoke to him in detail concerning advanced directives. Patient now DO NOT RESUSCITATE. Son reported patient wanted to remain a DO NOT RESUSCITATE. Son also reports patient has declined since the of his . Spoke with son at length concerning plan of care. If no significant change in status need to consider nonaggressive intervention like hospice(inpatient versus home) or aggressive intervention including PEG tube versus skilled versus custodial placement. Son was to discuss with other family members over the next 24 hours. Will rediscuss with son again today. Likely final answer on Thursday. I will turn to service over to the hospitalist team tomorrow. I will go plan of care with him. Pancytopenia: Continue to monitor and evaluate.. Urinary retention: Azar catheter in place. Will monitor closely. Urine cultures pending.. Elevated troponin: Monitor lab closely. Hypoglycemia: Continue with IV fluids. CAD status post CABG/pacemaker/defibrillator: Appears stable this time, will continue to monitor on telemetry, trend troponin. Hold aspirin and Plavix due to pancytopenia. Hypertension: Continue carvedilol. Hold olmesartan Gout: Continue allopurinol GERD: Continue Pepcid Hyperlipidemia: Continue Lipitor Failure to Thrive with severe protein malnutrition: Dietary consulted. Will continue to encourage oral intake. Will need to consider aggressive vs non agressive options. Await final decision by family on how to proceed. DVT PPX: SCDs thrombocytopenia. Code status: DO NOT RESUSCITATE Discharge Plan: Spoke with sons at length yesterday. Patient DO NOT RESUSCITATE. Await final answer on plan of care to include hospice versus aggressive options. Continue with above plan of care. Time Spent Managing Pts Care (In Minutes): 55
[2021-08-04] MEDS: VANCOMYCIN/NS 1 gm 1 GM/250 ML BAG IV SCH (16:03)
[2021-08-04] MEDS ORDERED: WATER FOR INJ,STERILE 10 ML IM PRN (19:23)
[2021-08-04] MEDS: ZIPRASIDONE MESYLA 20 MG/VIAL IM PRN (20:50)
[2021-08-04] MEDS: ATORVASTATIN 80 MG TAB PO SCH (20:53)
[2021-08-05] MEDS: D5 0.45 NS 1,000 ML IV SCH ×2 (00:18→16:23)
[2021-08-05] MEDS: HYDRALAZINE HCL 20 MG/ML VIAL IV PRN ×3 (01:10→20:02)
[2021-08-05 03:49] LABS: Absolute Lymphocytes (CBC) 1.1 K/uL (0.7-4.9); Basophils % 1.2 % (0-1.3); Hematocrit 30.6 % (39.6-49.0); Lymphocytes % 26.5 % (15.3-44.8); MPV 8.9 fL (7.6-11.3); RBC Red Blood Cell Count 3.38 M/uL (4.33-5.43)
[2021-08-05 04:16] LABS: Albumin 1.3 g/dL (3.4-5.0); Bilirubin Total 0.4 mg/dL (0.2-1.0); Magnesium 2.2 mg/dL (1.8-2.4); Potassium 4.3 mmol/L (3.5-5.1)
[2021-08-05] MEDS: carvediloL 3.125 MG TAB PO SCH ×2 (06:00→16:58)
[2021-08-05] MEDS: ARFORMOTEROL TARTRATE 15 MCG/2 ML VIAL.NEB NEB SCH ×2 (07:43→20:00)
[2021-08-05] MEDS: ENSURE ENLIVE 237 ML CAN PO SCH ×2 (07:54→21:00)
[2021-08-05] MEDS: allopurinoL 300 MG TAB PO SCH (07:54)
[2021-08-05] MEDS: CALCITROL 0.25 MCG CAP PO SCH (07:54)
[2021-08-05] MEDS: FAMOTIDINE 20 MG TAB PO SCH (08:30)
[2021-08-05] MEDS: MEDIHONEY 44 ML TOPICAL TUBE TOP SCH (08:31)
[2021-08-05] MEDS: LORazepam 2 MG/ML VIAL IV PRN ×2 (11:37→21:23)
[2021-08-05] MEDS: VANCOMYCIN/NS 1 gm 1 GM/250 ML BAG IV SCH (16:23)
--- NOTE | 2021-08-05 17:06 | P.PN ---
Subjective Date of Service: 08/05/21 Spoke to patient's PCP and patient has been declining over the last few months. Patient has had numerous hospitalization including T's heart surgery and patient has had hospitalizations monthly. Patient also has C diff infection as well as the pneumonia. Patient's PCP states that patient is failure to thrive and patient probably would be appropriate for hospice care. She did want me to reach out to patient's yard associate, Dr. Franco which I will do in a.m.. Review of Systems is unable to be obtained Physical Examination - Vital Signs Temperature: 97.6 F Blood Pressure: 132/63 Pulse: 85 Respirations: 18 Pulse Ox (%): 96 - Physical Exam General: Confused, Unresponsive - Studies Microbiology Data (last 24 hrs): 07/30/21 19:20 Blood - Blood Aerobic Blood Culture - Final No growth in 5 days. 07/30/21 19:20 Blood - Blood Anaerobic Blood Culture - Final No growth in 5 days. 07/30/21 19:20 Blood - Blood Aerobic Blood Culture - Final No growth in 5 days. 07/30/21 19:20 Blood - Blood Anaerobic Blood Culture - Final No growth in 5 days. Assessment & Plan - Problems (Diagnosis) (1) Cachexia Current Visit: Yes Status: Acute (2) Failure to thrive Current Visit: Yes Status: Acute (3) CHF (congestive heart failure) Onset Date: 04/26/18 Current Visit: No Status: Acute Qualifiers: Heart failure type: diastolic Heart failure chronicity: acute on chronic Qualified Code(s): I50.33 - Acute on chronic diastolic (congestive) heart failure (4) Generalized weakness Onset Date: 04/26/18 Current Visit: No Status: Acute (5) Syncope and collapse Onset Date: 04/26/18 Current Visit: No Status: Acute (6) CAD (coronary artery disease) Onset Date: 04/26/18 Current Visit: No Status: Chronic Qualifiers: Coronary Disease-Associated Artery/Lesion type: [place] artery [place] vs. transplanted heart: [place] heart Associated angina: without angina Qualified Code(s): I25.10 - Atherosclerotic heart disease of [place] coronary artery without angina pectoris (7) Diabetes Onset Date: 04/26/18 Current Visit: No Status: Chronic Qualifiers: Diabetes mellitus type: type 2 Diabetes mellitus residential insulin use: without residential use Diabetes mellitus complication status: without complication Qualified Code(s): E11.9 - Type 2 diabetes mellitus without complications - Plan Plan: 1. Attempting to proceed with palliative care. 2. Spoke with PCP who also wanted me to speak with Cardiology 3. Continue monitoring renal function closely 4. Poor nutrition and patient most likely not to benefit from feeding tube as patient has been declining over the last 6 months. Patient apparently had Coronary artery bypass grafting and afterwards had pneumonia. Patient has been having hospitalization almost every month which are prolonged stay. Patient's PCP stated that last admission at [facility] was a month ago and patient was having worsening cardiac issues. She does feel hospice care is appropriate. Will touch base with Japanese Professor. Discharge Plan: Home Plan to discharge in: Greater than 2 days - Advance Directives Does patient have a Living Will: No Does patient have a Durable POA for Healthcare: No
--- NOTE | 2021-08-05 17:18 | P.PN ---
Date of Service: 08/05/21 Vital Signs Temp Pulse Resp BP Pulse Ox 97.6 F 85 18 132/63 96 08/05/21 17:06 08/05/21 17:06 08/05/21 17:06 08/05/21 17:06 08/05/21 17:06 Medications Albuterol Sulfate (Albuterol 2.5 Mg/3 Ml Neb Kasia) 2.5 mg NEB Q6HP PRN PRN Reason: SHORTNESS OF BREATH Last Admin: 08/02/21 14:45 Dose: 2.5 mg Documented by: Allopurinol (Allopurinol 300 Mg Tab) 300 mg PO DAILY [facility] Last Admin: 08/05/21 07:54 Dose: Not Given Documented by: Arformoterol Tartrate (Arformoterol Tartrate 15 Mcg/2 Ml Vial.Neb) 15 mcg NEB BIDRESP [facility] Last Admin: 08/05/21 07:43 Dose: 15 mcg Documented by: Atorvastatin Calcium (Atorvastatin 80 Mg Tab) 80 mg PO BEDTIME [facility] Last Admin: 08/04/21 20:53 Dose: Not Given Documented by: Benzonatate (Benzonatate 100 Mg Cap) 100 mg PO TIDP PRN PRN Reason: COUGH Last Admin: 08/02/21 15:51 Dose: 100 mg Documented by: Calcitriol (Calcitrol 0.25 Mcg Cap) 0.5 mcg PO DAILY [facility] Last Admin: 08/05/21 07:54 Dose: Not Given Documented by: Carvedilol (Carvedilol 3.125 Mg Tab) 3.125 mg PO BID 6AM 6PM [facility] Last Admin: 08/05/21 16:58 Dose: Not Given Documented by: Emollient Gel (Medihoney 44 Ml Topical Tube) 0 appl TOP DAILY [facility] Last Admin: 08/05/21 08:31 Dose: 1 appl Documented by: Famotidine (Famotidine 20 Mg Tab) 20 mg PO DAILY [facility]; Protocol Last Admin: 08/05/21 08:30 Dose: Not Given Documented by: Hydralazine HCl (Hydralazine Hcl 20 Mg/Ml Vial) 10 mg IV Q6HP PRN PRN Reason: Titrate to SBP (MUST DEFINE) Last Admin: 08/05/21 08:30 Dose: 10 mg Documented by: Dextrose/Sodium Chloride (Dextrose 5% O.45% Saline) 1,000 mls @ 75 mls/hr IV .[id number] [facility] Last Admin: 08/05/21 16:23 Dose: 1,000 mls Documented by: Vancomycin HCl (Vancomycin 1 Gm/250 Ml Ns Ivpb) 1 gm in 250 mls @ 166.667 mls/hr IV Q24H [facility] Last Admin: 08/05/21 16:23 Dose: 250 mls Documented by: Ipratropium [place] (Ipratropium Brom 0.5mg/2.5ml) 0.5 mg NEB Q6HP PRN PRN Reason: SHORTNESS OF BREATH Last Admin: 08/02/21 14:44 Dose: 0.5 mg Documented by: Lorazepam (Lorazepam 2 Mg/Ml Vial) 0.5 mg IV Q6H PRN PRN Reason: AGITATION Last Admin: 08/05/21 11:37 Dose: 0.5 mg Documented by: Nutritional Formula (Ensure Enlive 237 Ml Can) 237 ml PO BID [facility] Last Admin: 08/05/21 07:54 Dose: Not Given Documented by: Ondansetron HCl (Ondansetron 4 Mg/2 Ml Vial) 4 mg IV Q6HP PRN PRN Reason: NAUSEA / VOMITING Sodium Chloride (Flush Normal Saline 10 Ml) 10 ml IV BID [facility] Last Admin: 08/05/21 08:30 Dose: 10 ml Documented by: Sterile Water (Water For Inj,Sterile 10 Ml) 1.2 ml IM UD PRN PRN Reason: DILUTION OF MED Tramadol HCl (Tramadol Hcl 50 Mg Tab) 50 mg PO TID PRN PRN Reason: Pain scale 2-4 (Mild) Last Admin: 08/02/21 21:54 Dose: 50 mg Documented by: Ziprasidone (Ziprasidone Mesyla 20 Mg/Vial) 10 mg IM Q6HP PRN PRN Reason: AGITATION Last Admin: 08/04/21 20:50 Dose: 10 mg Documented by: Microbiology Results 07/30/21 19:20 Blood - Blood Aerobic Blood Culture - Final No growth in 5 days. 07/30/21 19:20 Blood - Blood Anaerobic Blood Culture - Final No growth in 5 days. 07/30/21 19:20 Blood - Blood Aerobic Blood Culture - Final No growth in 5 days. 07/30/21 19:20 Blood - Blood Anaerobic Blood Culture - Final No growth in 5 days. 07/30/21 19:23 Catheterized Urine [place] Count - Final >100,000 CFU/ML. 07/30/21 19:23 Catheterized Urine - Final Staphylococcus Warneri Assessment/ Plan: Nephrology Progress Note Fatigue and weakness. No chest pain or dyspnea No acute events overnight Limited IH/ ROS due to AMS Vitals, medications blood work and imaging reviewed in the chart General: In no apparent distress, Cooperative HEENT: Atraumatic Neck: Supple Respiratory: Diminished Cardiovascular: Regular rate/rhythm, Edema Gastrointestinal: Soft and benign, Non-distended Musculoskeletal: No clubbing, No contractures, Other (Partial right foot amputation) Integumentary: No rashes, No cyanosis Neurological: Normal speech Laboratory Data (last 24 hrs) 07/30/21 19:20: PT 10.4, INR 0.91, APTT 31.3 07/30/21 19:20: WBC 3.50 L, Hgb 9.9 L, Hct 29.9 L, Plt Count 67 L 07/30/21 19:20: Sodium 135 L, Potassium 5.5 H, BUN 65 H, Creatinine 1.68 H, Glucose 69 L, Magnesium 2.0, Total Bilirubin 0.4, AST 116 H, ALT 46, Alkaline Phosphatase 165 H, Lipase 398 H Imagings Data: EXAM DESCRIPTION: US - Abdomen Exam Limited - 07/30/2021 9:25 pm CLINICAL HISTORY: Abdominal pain. COMPARISON: None. FINDINGS: The gallbladder wall is not thickened. Multiple gallstones The biliary tree is normal caliber. IMPRESSION: Cholelithiasis EXAM DESCRIPTION: RADChest Single View07/30/2021 7:54 pm CLINICAL HISTORY: Shortness of breath COMPARISON: 2018 FINDINGS: The lungs appear clear of acute infiltrate. The heart is normal size. Postsurgical changes involve the chest. Pacemaker lead in place IMPRESSION: No acute abnormalities displayed Conclusions/Impression: VISHAL in the setting of urinary retention CKD III with proteinuria -Continue IVF -Give IV Albumin PRN Hyponatremia Hyperkalemia -Hold Lisinopril Hypocalcemia -Continue Calcitriol HTN with CKD -Continue Coreg Severe malnutrition Hypoalbuminemia -Give IV Albumin PRN Anemia in chronic illness Pancytopenia -Transfuse PRBC PRN Gout -Continue Allopurinol Toxic metabolic encephalopathy -Continue abx Acute cystitis, Coag Neg Staph -Follow up culture -Continue Vancomycin; monitor level
[2021-08-05] MEDS: ZIPRASIDONE MESYLA 20 MG/VIAL IM PRN (19:59)
[2021-08-05] MEDS: ATORVASTATIN 80 MG TAB PO SCH (21:00)
[2021-08-06] MEDS: ZIPRASIDONE MESYLA 20 MG/VIAL IM PRN ×2 (02:11→19:45)
[2021-08-06 03:58] LABS: Basophils % 0.7 % (0-1.3); Hematocrit 24.7 % (39.6-49.0); Lymphocytes % 29.9 % (15.3-44.8); MPV 9.1 fL (7.6-11.3); RBC Red Blood Cell Count 2.73 M/uL (4.33-5.43)
[2021-08-06 04:26] LABS: Albumin 1.1 g/dL (3.4-5.0); Bilirubin Total 0.3 mg/dL (0.2-1.0); Magnesium 2.1 mg/dL (1.8-2.4); Protein, Total 4.5 g/dL (6.4-8.2)
[2021-08-06] MEDS: carvediloL 3.125 MG TAB PO SCH ×2 (06:00→15:09)
[2021-08-06] MEDS: D5 0.45 NS 1,000 ML IV SCH ×3 (06:31→20:31)
[2021-08-06] MEDS: ENSURE ENLIVE 237 ML CAN PO SCH ×2 (07:41→20:32)
[2021-08-06] MEDS: CALCITROL 0.25 MCG CAP PO SCH (07:42)
[2021-08-06] MEDS: FAMOTIDINE 20 MG TAB PO SCH (07:42)
[2021-08-06] MEDS: allopurinoL 300 MG TAB PO SCH (07:42)
[2021-08-06] MEDS: MEDIHONEY 44 ML TOPICAL TUBE TOP SCH (08:00)
[2021-08-06] MEDS: ARFORMOTEROL TARTRATE 15 MCG/2 ML VIAL.NEB NEB SCH ×2 (08:00→20:00)
[2021-08-06] MEDS: HYDRALAZINE HCL 20 MG/ML VIAL IV PRN (08:48)
[2021-08-06] MEDS: IPRATROPIUM BROM 0.5MG/2.5ML NEB PRN (08:51)
[2021-08-06] MEDS: ALBUTEROL 2.5 MG/3 ML NEB SOL NEB PRN (08:52)
[2021-08-06] MEDS ORDERED: IPRATROPIUM BROM 0.5MG/2.5ML NEB PRN (16:00)
[2021-08-06] MEDS: ATORVASTATIN 80 MG TAB PO SCH (20:31)
--- NOTE | 2021-08-06 20:35 | P.PN ---
Date of Service: 08/06/21 Vital Signs Temp Pulse Resp BP Pulse Ox 97.1 F 92 H 8 L 146/68 H 100 08/06/21 16:00 08/06/21 16:00 08/06/21 16:00 08/06/21 16:00 08/06/21 16:00 Medications Albuterol Sulfate (Albuterol 2.5 Mg/3 Ml Neb Kasia) 2.5 mg NEB Q6HP PRN PRN Reason: SHORTNESS OF BREATH Last Admin: 08/06/21 08:52 Dose: 2.5 mg Documented by: Arformoterol Tartrate (Arformoterol Tartrate 15 Mcg/2 Ml Vial.Neb) 15 mcg NEB BIDRESP [facility] Last Admin: 08/06/21 08:00 Dose: 15 mcg Documented by: Atorvastatin Calcium (Atorvastatin 80 Mg Tab) 80 mg PO BEDTIME [facility] Last Admin: 08/05/21 21:00 Dose: Not Given Documented by: Benzonatate (Benzonatate 100 Mg Cap) 100 mg PO TIDP PRN PRN Reason: COUGH Last Admin: 08/02/21 15:51 Dose: 100 mg Documented by: Calcitriol (Calcitrol 0.25 Mcg Cap) 0.5 mcg PO DAILY [facility] Last Admin: 08/06/21 07:42 Dose: Not Given Documented by: Emollient Gel (Medihoney 44 Ml Topical Tube) 0 appl TOP DAILY [facility] Last Admin: 08/06/21 08:00 Dose: 1 appl Documented by: Famotidine (Famotidine 20 Mg Tab) 20 mg PO DAILY [facility]; Protocol Last Admin: 08/06/21 07:42 Dose: Not Given Documented by: Hydralazine HCl (Hydralazine Hcl 20 Mg/Ml Vial) 10 mg IV Q6HP PRN PRN Reason: Titrate to SBP (MUST DEFINE) Last Admin: 08/06/21 08:48 Dose: 10 mg Documented by: Vancomycin HCl (Vancomycin 1 Gm/250 Ml Ns Ivpb) 1 gm in 250 mls @ 166.667 mls/hr IV Q24H [facility] Dextrose/Sodium Chloride (Dextrose 5% O.45% Saline) 1,000 mls @ 100 mls/hr IV .Q10H [facility] Ipratropium [place] (Ipratropium Brom 0.5mg/2.5ml) 0.5 mg NEB [id number] PRN PRN Reason: SHORTNESS OF BREATH Lorazepam (Lorazepam 2 Mg/Ml Vial) 0.5 mg IV Q6H PRN PRN Reason: AGITATION Last Admin: 08/05/21 21:23 Dose: 0.5 mg Documented by: Metoprolol Tartrate (Metoprolol Tar 25 Mg Tab) 25 mg PO BID [facility] Nutritional Formula (Ensure Enlive 237 Ml Can) 237 ml PO BID [facility] Last Admin: 08/06/21 07:41 Dose: Not Given Documented by: Ondansetron HCl (Ondansetron 4 Mg/2 Ml Vial) 4 mg IV Q6HP PRN PRN Reason: NAUSEA / VOMITING Sodium Chloride (Flush Normal Saline 10 Ml) 10 ml IV BID [facility] Last Admin: 08/06/21 08:00 Dose: 10 ml Documented by: Sterile Water (Water For Inj,Sterile 10 Ml) 1.2 ml IM UD PRN PRN Reason: DILUTION OF MED Tramadol HCl (Tramadol Hcl 50 Mg Tab) 50 mg PO TID PRN PRN Reason: Pain scale 2-4 (Mild) Last Admin: 08/02/21 21:54 Dose: 50 mg Documented by: Ziprasidone (Ziprasidone Mesyla 20 Mg/Vial) 10 mg IM Q6HP PRN PRN Reason: AGITATION Last Admin: 08/06/21 02:11 Dose: 10 mg Documented by: Microbiology Results 07/30/21 19:20 Blood - Blood Aerobic Blood Culture - Final No growth in 5 days. 07/30/21 19:20 Blood - Blood Anaerobic Blood Culture - Final No growth in 5 days. 07/30/21 19:20 Blood - Blood Aerobic Blood Culture - Final No growth in 5 days. 07/30/21 19:20 Blood - Blood Anaerobic Blood Culture - Final No growth in 5 days. 07/30/21 19:23 Catheterized Urine [place] Count - Final >100,000 CFU/ML. 07/30/21 19:23 Catheterized Urine - Final Staphylococcus Warneri Assessment/ Plan: Nephrology Progress Note Fatigue and weakness. No chest pain or dyspnea No acute events overnight Limited IH/ ROS due to AMS Vitals, medications blood work and imaging reviewed in the chart General: In no apparent distress, Cooperative HEENT: Atraumatic Neck: Supple Respiratory: Diminished Cardiovascular: Regular rate/rhythm, Edema Gastrointestinal: Soft and benign, Non-distended Musculoskeletal: No clubbing, No contractures, Other (Partial right foot amputation) Integumentary: No rashes, No cyanosis Neurological: Normal speech Laboratory Data (last 24 hrs) 07/30/21 19:20: PT 10.4, INR 0.91, APTT 31.3 07/30/21 19:20: WBC 3.50 L, Hgb 9.9 L, Hct 29.9 L, Plt Count 67 L 07/30/21 19:20: Sodium 135 L, Potassium 5.5 H, BUN 65 H, Creatinine 1.68 H, Glucose 69 L, Magnesium 2.0, Total Bilirubin 0.4, AST 116 H, ALT 46, Alkaline Phosphatase 165 H, Lipase 398 H Imagings Data: EXAM DESCRIPTION: US - Abdomen Exam Limited - 07/30/2021 9:25 pm CLINICAL HISTORY: Abdominal pain. COMPARISON: None. FINDINGS: The gallbladder wall is not thickened. Multiple gallstones The biliary tree is normal caliber. IMPRESSION: Cholelithiasis EXAM DESCRIPTION: RADAleet Single View07/30/2021 7:54 pm CLINICAL HISTORY: Shortness of breath COMPARISON: 2018 FINDINGS: The lungs appear clear of acute infiltrate. The heart is normal size. Postsurgical changes involve the chest. Pacemaker lead in place IMPRESSION: No acute abnormalities displayed Conclusions/Impression: VISHAL in the setting of urinary retention CKD III with proteinuria -Increase IVF -Give IV Albumin PRN Hyponatremia Hyperkalemia Hypocalcemia -Continue Calcitriol HTN with CKD -Change Coreg to Metoprolol Severe malnutrition Hypoalbuminemia -Give IV Albumin PRN -Consider nutrition options Anemia in chronic illness Pancytopenia -Transfuse PRBC PRN Gout -Discontinue Allopurinol at this time Toxic metabolic encephalopathy -Continue abx Acute cystitis, Coag Neg Staph -Follow up culture -Continue Vancomycin; monitor level Case reviewed with the son at length; hospice care recommended.
[2021-08-06] MEDS: METOPROLOL TAR 25 MG TAB PO SCH (21:00)
[2021-08-06] MEDS: LORazepam 2 MG/ML VIAL IV PRN (21:59)
[2021-08-06 22:13] VITALS: BMI 23.8
[2021-08-07 03:56] LABS: Absolute Lymphocytes (CBC) 1.2 K/uL (0.7-4.9); Hematocrit 26.2 % (39.6-49.0); Lymphocytes % 27.4 % (15.3-44.8); MPV 8.8 fL (7.6-11.3); RBC Red Blood Cell Count 2.92 M/uL (4.33-5.43)
[2021-08-07 04:10] LABS: Albumin 1.2 g/dL (3.4-5.0); Bilirubin Total 0.4 mg/dL (0.2-1.0); Magnesium 2.2 mg/dL (1.8-2.4); Phosphorus 4.4 mg/dL (2.5-4.9); Potassium 4.2 mmol/L (3.5-5.1); Protein, Total 4.8 g/dL (6.4-8.2)
[2021-08-07] MEDS: LORazepam 2 MG/ML VIAL IV PRN (05:22)
[2021-08-07] MEDS: D5 0.45 NS 1,000 ML IV SCH ×2 (07:36→08:24)
[2021-08-07] MEDS: ENSURE ENLIVE 237 ML CAN PO SCH (07:36)
[2021-08-07] MEDS: CALCITROL 0.25 MCG CAP PO SCH (07:37)
[2021-08-07] MEDS: FAMOTIDINE 20 MG TAB PO SCH (07:37)
[2021-08-07] MEDS: METOPROLOL TAR 25 MG TAB PO SCH (07:37)
[2021-08-07] MEDS: ARFORMOTEROL TARTRATE 15 MCG/2 ML VIAL.NEB NEB SCH (08:06)
[2021-08-07] MEDS: MEDIHONEY 44 ML TOPICAL TUBE TOP SCH (08:24)
[2021-08-07 09:17] VITALS: O2SAT 97
[2021-08-07] MEDS ORDERED: FENTANYL CITR 100 MCG/2 ML IV ONE (14:32)
[2021-08-07] MEDS ORDERED: VANCOMYCIN/NS 1 gm 1 GM/250 ML BAG IV SCH ×2 (15:00→16:00)
[2021-08-07] MEDS ORDERED: SCOPOLAMINE HYDROBROMIDE PATCH TD ONE (15:00)
[2021-08-07] MEDS ORDERED: ALBUTEROL 2.5 MG/3 ML NEB SOL NEB PRN (15:00)
[2021-08-07] MEDS ORDERED: LORazepam 2 MG/ML VIAL ONE (17:35)
--- NOTE | 2021-08-07 18:48 | P.PN ---
Date of Service: 08/07/21 Vital Signs Temp Pulse Resp BP Pulse Ox 97.2 F 77 16 95/47 L 97 08/07/21 12:00 08/07/21 12:00 08/07/21 12:00 08/07/21 12:00 08/07/21 12:00 Microbiology Results 07/30/21 19:20 Blood - Blood Aerobic Blood Culture - Final No growth in 5 days. 07/30/21 19:20 Blood - Blood Anaerobic Blood Culture - Final No growth in 5 days. 07/30/21 19:20 Blood - Blood Aerobic Blood Culture - Final No growth in 5 days. 07/30/21 19:20 Blood - Blood Anaerobic Blood Culture - Final No growth in 5 days. 07/30/21 19:23 Catheterized Urine [place] Count - Final >100,000 CFU/ML. 07/30/21 19:23 Catheterized Urine - Final Staphylococcus Warneri Assessment/ Plan: Nephrology Progress Note Fatigue and weakness. No chest pain or dyspnea No acute events overnight Limited IH/ ROS due to AMS Vitals, medications blood work and imaging reviewed in the chart General: In no apparent distress, Cooperative HEENT: Atraumatic Neck: Supple Respiratory: Diminished Cardiovascular: Regular rate/rhythm, Edema Gastrointestinal: Soft and benign, Non-distended Musculoskeletal: No clubbing, No contractures, Other (Partial right foot amputation) Integumentary: No rashes, No cyanosis Neurological: Normal speech Laboratory Data (last 24 hrs) 07/30/21 19:20: PT 10.4, INR 0.91, APTT 31.3 07/30/21 19:20: WBC 3.50 L, Hgb 9.9 L, Hct 29.9 L, Plt Count 67 L 07/30/21 19:20: Sodium 135 L, Potassium 5.5 H, BUN 65 H, Creatinine 1.68 H, Glucose 69 L, Magnesium 2.0, Total Bilirubin 0.4, AST 116 H, ALT 46, Alkaline Phosphatase 165 H, Lipase 398 H Imagings Data: EXAM DESCRIPTION: US - Abdomen Exam Limited - 07/30/2021 9:25 pm CLINICAL HISTORY: Abdominal pain. COMPARISON: None. FINDINGS: The gallbladder wall is not thickened. Multiple gallstones The biliary tree is normal caliber. IMPRESSION: Cholelithiasis EXAM DESCRIPTION: [place] Single View07/30/2021 7:54 pm CLINICAL HISTORY: Shortness of breath COMPARISON: 2018 FINDINGS: The lungs appear clear of acute infiltrate. The heart is normal size. Postsurgical changes involve the chest. Pacemaker lead in place IMPRESSION: No acute abnormalities displayed Conclusions/Impression: VISHAL in the setting of urinary retention CKD III with proteinuria -Continue IVF -Give IV Albumin PRN Hyponatremia Hyperkalemia Hypocalcemia -Continue Calcitriol HTN with CKD -Continue Metoprolol Severe malnutrition Hypoalbuminemia -Give IV Albumin PRN -Consider nutrition options Anemia in chronic illness Pancytopenia -Transfuse PRBC PRN Gout -Discontinue Allopurinol Toxic metabolic encephalopathy -Continue abx Acute cystitis, Coag Neg Staph -Follow up culture -Continue Vancomycin; monitor level
--- NOTE | 2021-08-08 08:10 | P.PN ---
Date of Service: 08/06/21 Subjective Patient is still really weak. Spoke with family as well as patient's primary care provider and patient's senior litigation paralegal. Decision was made for inpatient hospice. Awaiting for family to talk amongst each other in make a decision on further plan of care. At this time we will continue monitoring volume status. Continue with medication to increase intake. Review of Systems is unable to be obtained Physical Examination - Vital Signs Reviewed - Physical Exam General: Confused, Unresponsive Cardiovascular: Systolic ejection murmur 2/6. Lungs: Clear bilaterally Abdomen: Soft, nontender nondistended Extremities: No clubbing, no cyanosis, minimal edema Neuro: No focal deficits; generalized weakness Assessment & Plan - Problems (Diagnosis) (1) Cachexia Current Visit: Yes Status: Acute (2) Failure to thrive Current Visit: Yes Status: Acute (3) CHF (congestive heart failure) Onset Date: 04/26/18 Current Visit: No Status: Acute Qualifiers: Heart failure type: diastolic Heart failure chronicity: acute on chronic Qualified Code(s): I50.33 - Acute on chronic diastolic (congestive) heart failure (4) Generalized weakness Onset Date: 04/26/18 Current Visit: No Status: Acute (5) Syncope and collapse Onset Date: 04/26/18 Current Visit: No Status: Acute (6) CAD (coronary artery disease) Onset Date: 04/26/18 Current Visit: No Status: Chronic Qualifiers: Coronary Disease-Associated Artery/Lesion type: [place] artery [place] vs. transplanted heart: [place] heart Associated angina: without angina Qualified Code(s): I25.10 - Atherosclerotic heart disease of [place] coronary artery without angina pectoris (7) Diabetes Onset Date: 04/26/18 Current Visit: No Status: Chronic Qualifiers: Diabetes mellitus type: type 2 Diabetes mellitus longterm insulin use: without termination clerk use Diabetes mellitus complication status: without complication Qualified Code(s): E11.9 - Type 2 diabetes mellitus without complications - Plan Plan: 1. Attempting to proceed with palliative care. 2. Spoke with PCP who also wanted me to speak with Cardiology; spoke with senior litigation paralegal to feel that patient qualifies for palliative care or hospice care 3. Continue monitoring renal function closely 4. Poor nutrition and patient most likely not to benefit from feeding tube as patient has been declining over the last 6 months. Patient apparently had Coronary artery bypass grafting and afterwards had pneumonia. Patient has been having hospitalization almost every month which are prolonged stay.
--- NOTE | 2021-08-08 08:18 | P.DS ---
Discharge Date: 08/07/21 Primary Care Provider: Dr. Camarillo Disposition: HOSPICE-MEDICAL FACILITY Reason for Admission: AMS - Problems (1) Cachexia Status: Acute (2) Failure to thrive Status: Acute (3) CHF (congestive heart failure) Onset Date: 04/26/18 Status: Acute Qualifiers: Heart failure type: diastolic Heart failure chronicity: acute on chronic Qualified Code(s): I50.33 - Acute on chronic diastolic (congestive) heart failure (4) Generalized weakness Onset Date: 04/26/18 Status: Acute (5) Syncope and collapse Onset Date: 04/26/18 Status: Acute (6) CAD (coronary artery disease) Onset Date: 04/26/18 Status: Chronic Qualifiers: Coronary Disease-Associated Artery/Lesion type: [place] artery [place] vs. transplanted heart: [place] heart Associated angina: without angina Qualified Code(s): I25.10 - Atherosclerotic heart disease of [place] coronary artery without angina pectoris (7) Diabetes Onset Date: 04/26/18 Status: Chronic Qualifiers: Diabetes mellitus type: type 2 Diabetes mellitus long haul truck driver insulin use: without senior living use Diabetes mellitus complication status: without complication Qualified Code(s): E11.9 - Type 2 diabetes mellitus without complications Brief History of Present Illness: Pt is a 70-year-old male with history of CAD, hypertension, gout, urinary retention presents emergency department for altered mental status, generalized weakness. Patient lives with his [id number] reported that patient has been more confused than normal over the course of last few days. Patient was evaluated in the emergency department labs were significant for white blood cell count 3.5 red blood cell 3.3 hemoglobin 9.9 hematocrit 29.9 RDW 15.8 platelets 67 sodium 135 potassium 5.5 BUN 65 creatinine 1.68 GFR 41 glucose 69 calcium 7.9 albumin 1.4 procalcitonin 0.22 troponin 0 0.05. AST [address] head negative for acute findings abdominal ultrasound pending, patient given Kayexalate and calcium gluconate in the emergency department for hyperkalemia. ED provider wishes to admit for further evaluation and management. Patient also admits to self catheterizing at home for urinary retention for the past few weeks, patient is poor historian, oriented x2-3, no family available for review at this time. Vital Signs/Physical Exam: Temp Pulse Resp BP Pulse Ox 97.2 F 77 16 95/47 L 97 08/07/21 12:00 08/07/21 12:00 08/07/21 12:00 08/07/21 12:00 08/07/21 12:00 General: Alert, In no apparent distress, Oriented x3 Laboratory Data at Discharge: WBC 4.30 K/uL (4.3-10.9) D 08/07/21 03:24 Hgb 8.8 g/dL (13.6-17.9) L 08/07/21 03:24 Hct 26.2 % (39.6-49.0) L 08/07/21 03:24 Plt Count 36 K/uL (152-406) L* 08/07/21 03:24 PT 10.4 SECONDS (9.5-12.5) 07/30/21 19:20 INR 0.91 07/30/21 19:20 APTT 31.3 SECONDS (24.3-36.9) 07/30/21 19:20 Sodium 143 mmol/L (136-145) 08/07/21 03:24 Potassium 4.2 mmol/L (3.5-5.1) 08/07/21 03:24 BUN 42 mg/dL (7-18) H 08/07/21 03:24 Creatinine 1.76 mg/dL (0.55-1.3) H 08/07/21 03:24 Glucose 95 mg/dL (74-106) 08/07/21 03:24 Uric Acid 6.6 mg/dL (3.5-7.2) 08/01/21 04:02 Phosphorus 4.4 mg/dL (2.5-4.9) 08/07/21 03:24 Magnesium 2.2 mg/dL (1.8-2.4) 08/07/21 03:24 Total Bilirubin 0.4 mg/dL (0.2-1.0) 08/07/21 03:24 AST 70 U/L (15-37) H 08/07/21 03:24 ALT 31 U/L (12-78) 08/07/21 03:24 Alkaline Phosphatase 120 U/L (45-117) H 08/07/21 03:24 Troponin I 0.07 ng/mL (0.0-0.045) H 07/31/21 06:07 Triglycerides 98 mg/dL (<150) 07/31/21 06:07 Cholesterol 107 mg/dL (<200) 07/31/21 06:07 HDL Cholesterol 31 mg/dL (40-60) L 07/31/21 06:07 Cholesterol/HDL Ratio 3.45 07/31/21 06:07 Lipase 398 U/L (73-393) H 07/30/21 19:20 Home Medications: Atorvastatin Calcium [Lipitor] 1 tab PO BEDTIME 04/25/18 Clopidogrel Bisulfate [Plavix*] 1 tab PO DAILY 04/25/18 allopurinoL [Zyloprim*] 1 tab PO DAILY 04/25/18 Aspirin [Aspirin EC 81 MG] 1 tab PO DAILY 07/31/21 Carvedilol [Coreg] 1 tab BID 07/31/21 Famotidine [Pepcid] 20 mg PO DAILY 07/31/21 Furosemide [Lasix*] 1 tab BID 07/31/21 Magnesium Oxide [Magnesium] 1 tab DAILY 07/31/21 Olmesartan Medoxomil 0.5 tab DAILY 07/31/21 Physician Discharge Instructions: Inpatient hospice Diet: Regular Activity: Fall precautions Followup: Unknown,U [Primary Care Provider] - Time spent managing pt's care (in minutes): 35
[2021-08-19 04:09] VITALS: BP 132/63; TEMP 97.6
== END 2021-08-07 15:10 | disposition hospice, inpatient (51) | DRG 689 ==
LOC: ER 18:54 → ERHOLD 21:11 → 4TH 23:04
PROVIDERS: ADMIT Family Medicine; ATTEND Family Medicine
DX: N39.0 Urinary tract infection, site not specified (principal); E43 Unspecified severe protein-calorie malnutrition; G92.8 Other toxic encephalopathy; I50.33 Acute on chronic diastolic (congestive) heart failure; N17.9 Acute kidney failure, unspecified; D61.818 Other pancytopenia; L03.315 Cellulitis of perineum; E87.1 Hypo-osmolality and hyponatremia; R64 Cachexia; I13.0 Hypertensive heart and chronic kidney disease with heart failure and stage 1 through stage 4 chronic kidney disease, or unspecified chronic kidney disease; B95.7 Other staphylococcus as the cause of diseases classified elsewhere; N18.30 Chronic kidney disease, stage 3 unspecified; E87.5 Hyperkalemia; R33.9 Retention of urine, unspecified; R77.8 Other specified abnormalities of plasma proteins; E16.2 Hypoglycemia, unspecified; I25.10 Atherosclerotic heart disease of native coronary artery without angina pectoris; M10.9 Gout, unspecified; E83.51 Hypocalcemia; J44.9 Chronic obstructive pulmonary disease, unspecified; R62.7 Adult failure to thrive; Z68.21 Body mass index [BMI] 21.0-21.9, adult; Z66 Do not resuscitate; Z95.1 Presence of aortocoronary bypass graft; Z95.810 Presence of automatic (implantable) cardiac defibrillator; Z20.822 Contact with and (suspected) exposure to COVID-19
CPT/HCPCS: 36415; 70450; 71045; 76705; 80048; 80053; 80061; 80076; 80202; 80320; 81003; 81015; 82550; 82728; 82947; 83540; 83605; 83690; 83735; 84100; 84145; 84439; 84443; 84466; 84484; 84550; 85014; 85018; 85025; 85044; 85610; 85730; 86850; 86900; 86901; 87040; 87077; 87086; 87088; 87186; 93005; 94010; 94640; 96361; 96365; 96375; 97161; 97530; 99251; 99285; J0360; J0610; J0696; J3010; J3370; J3486; J7030; J7050; J7605; J7799; P9047; U0003

== ENCOUNTER 2021-08-07 16:48 | Inpatient (IN) | payer OTHER ==
[2021-08-07] MEDS: SCOPOLAMINE HYDROBROMIDE PATCH TD ONE ×2 (16:52→17:15)
[2021-08-07 17:06] VITALS: BMI 21.9
[2021-08-07] MEDS: LORazepam 2 MG/ML VIAL IV PRN ×2 (17:12→19:47)
[2021-08-07] MEDS: ATROPINE 1% OPTH DROPS 5ML SL PRN (19:45)
[2021-08-07] MEDS: FENTANYL CITR 100 MCG/2 ML IV PRN (19:46)
[2021-08-08] MEDS: FENTANYL CITR 100 MCG/2 ML IV PRN ×2 (09:59→15:58)
[2021-08-08] MEDS: ATROPINE 1% OPTH DROPS 5ML SL PRN (10:01)
[2021-08-08] MEDS: LORazepam 2 MG/ML VIAL IV PRN (15:44)
[2021-08-09] MEDS: LORazepam 2 MG/ML VIAL IV PRN ×3 (00:29→18:55)
[2021-08-09] MEDS: FENTANYL CITR 100 MCG/2 ML IV PRN ×3 (11:28→18:56)
[2021-08-09] MEDS: ATROPINE 1% OPTH DROPS 5ML SL PRN ×2 (11:28→18:56)
[2021-08-10] MEDS: FENTANYL CITR 100 MCG/2 ML IV PRN ×4 (01:12→23:35)
[2021-08-10] MEDS: ATROPINE 1% OPTH DROPS 5ML SL PRN (05:19)
[2021-08-11] MEDS: FENTANYL CITR 100 MCG/2 ML IV PRN ×3 (04:44→18:11)
[2021-08-11] MEDS: ATROPINE 1% OPTH DROPS 5ML SL PRN ×3 (04:45→18:12)
[2021-08-11] MEDS: SCOPOLAMINE HYDROBROMIDE PATCH TD SCH (11:14)
[2021-08-12] MEDS: FENTANYL CITR 100 MCG/2 ML IV PRN (10:26)
[2021-08-13] MEDS: LORazepam 2 MG/ML VIAL IV PRN (13:29)
[2021-08-14] MEDS: SCOPOLAMINE HYDROBROMIDE PATCH TD SCH (07:31)
[2021-08-14] MEDS: LORazepam 2 MG/ML VIAL IV PRN (07:33)
[2021-08-15] MEDS: LORazepam 2 MG/ML VIAL IV PRN (12:29)
[2021-08-16 09:46] VITALS: O2SAT 91
[2021-08-16 10:00] VITALS: BP 121/53; TEMP 99.6
== END 2021-08-16 14:03 | disposition expired | DRG 951 ==
LOC: 4TH 16:48
PROVIDERS: ADMIT Internal Medicine Hematology & Oncology; ATTEND Internal Medicine Hematology & Oncology
DX: Z51.5 Encounter for palliative care (principal)
CPT/HCPCS: J3010